=== PATIENT | male | born 1965 | race Caucasian/White ===

== ENCOUNTER → 2020-01-02 11:10 | Outpatient (BNVA) | payer MEDICAID, SELFPAY | PROVIDERS: Family Provider Family Medicine; PCP Family Medicine; Visit Provider Family Medicine | DX: E11.9 Type 2 diabetes mellitus without complications (principal); I25.10 Atherosclerotic heart disease of native coronary artery without angina pectoris; I10 Essential (primary) hypertension | CPT/HCPCS: 80053; 80061; 83036 ==

== ENCOUNTER 2020-01-21 17:47 | Emergency (ER) | payer MEDICAID, SELFPAY | END 2020-01-21 20:45 | disposition admitted as inpatient to this hospital (09) | LOC: ER 01-22 16:10 | PROVIDERS: Emergency Provider Emergency Medicine; PCP Family Medicine | DX: I21.4 Non-ST elevation (NSTEMI) myocardial infarction (principal); I11.0 Hypertensive heart disease with heart failure; I50.21 Acute systolic (congestive) heart failure; I20.0 Unstable angina; I25.10 Atherosclerotic heart disease of native coronary artery without angina pectoris; I50.9 Heart failure, unspecified; E11.42 Type 2 diabetes mellitus with diabetic polyneuropathy; F17.210 Nicotine dependence, cigarettes, uncomplicated | CPT/HCPCS: 12345; 71045; 71275; 80053; 80307; 81003; 83880; 84145; 84484; 85025; 85610; 85730; 87040; 87449; 93005; 96372; 96374; 96375; 99284; 99285; J1650; J2270; J2405 ==

== ENCOUNTER 2020-01-21 17:47 | Inpatient (IN) | payer MEDICAID, SELFPAY ==
[2020-01-21] VITALS (10 sets, daily range): BP systolic 103–137; BP diastolic 64–87; PULSE 74–92; RESP 13–22; TEMP 36.6; O2SAT 95–99; BMI 21.2
--- NOTE | 2020-01-21 18:12 | ECG_ITS ---
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 Measurements Intervals [place] Rate: 75 P: 35 [place]: 176 QRS: 34 QRSD: 97 T: 28 QT: 414 QTc: 464 Interpretive Statements SINUS RHYTHM POSSIBLE LEFT ATRIAL ENLARGEMENT [-0.1mV P WAVE IN V1/V2] NONSPECIFIC T-WAVE ABNORMALITY Compared to ECG 03/01/2019 08:46:31 T-wave abnormality now present Myocardial infarct finding no longer present Electronically Signed On 01-22-2020 9:39:09 CDT by Lele Garcia M.D. [id number]
--- NOTE | 2020-01-21 18:12 | XR_ITS ---
WS: [id number] CHEST XRAY TECHNIQUE: Portable chest. CLINICAL INFORMATION: cp COMPARISON: None. FINDINGS: Heart: Normal cardiac silhouette. Lungs: Stable loculated left pleural effusion extending along the fissure. Left basilar atelectasis. Trace right pleural fluid. Chronic emphysema. Bones: Normal visualized bony structures. XR/XR chest 1V portable [id number] IMPRESSION: Stable loculated left pleural effusion extending along the fissure unchanged si nce the concurrent CT. Trace right pleural fluid.
[2020-01-21 18:20] LABS: Basophils # 0.1 10^3/uL (0.0-0.1); Basophils % 0.7 %; Eosinophils # 0.1 10^3/uL (0.0-0.8); Eosinophils % 0.9 %; Hemoglobin 9.2 g/dL (11.7-16.6); Lymphocytes % 24.9 %; Mean Corpuscular HGB Conc 32.9 g/dL (30.0-36.0); Mean Corpuscular Hemoglobin 32.5 pg (28.0-34.0); Mean Corpuscular Volume 98.9 fL (80-94); Mean Platelet Volume 12.1 fL (7.4-10.4); Monocytes # 0.6 10^3/uL (0.2-0.9); Monocytes % 7.3 %; Neutrophils # 5.3 10^3/uL (1.8-7.7); Neutrophils % 65.8 %; Nucleated Red Blood Cells % 0 %; Platelet Count 163 10^3/cmm (130-400); Red Blood Count 2.83 10^6/uL (4.1-5.3); Red Cell Distribution Width 13.2 % (12.1-15.1); White Blood Count 8.1 10^3/uL (4.0-10.0)
[2020-01-21 18:39] LABS: Troponin(5th) Baseline 184 ng/L (0-15)
[2020-01-21] MEDS: morphine 4 mg/mL SDV 1 mL 2 MG IVP ×2 (18:40→23:12)
[2020-01-21] MEDS: ondansetron 2 mg/ML SDV 2 mL 4 MG IVP (18:40)
[2020-01-21 18:41] LABS: Alanine Aminotransferase 32 U/L (0-41); Alkaline Phosphatase 193 IU/L (40-130); Anion Gap 22.4 (5-19); Aspartate Amino Transferase 61 U/L (0-40); Blood Urea Nitrogen 5 mg/dL (6-20); Calcium 8.3 mg/dL (8.5-10.5); Carbon Dioxide 27 mmol/L (22-29); Chloride 91 mmol/L (98-107); Globulin 3.3 g/dL (1.3-4.6); Glomerular Filtration Rate 116.7 mL/min (90-130); Glucose 376 mg/dL (65-115); NT Pro B Type Natriuretic Pept 17381 pg/mL (0-125); Osmolality Calculated 295 mOsm/kg (285-295); Potassium 3.4 mmol/L (3.5-5.1); Sodium 137 mmol/L (136-145); Total Bilirubin 0.4 mg/dL (0.15-1.2); Total Protein 6.3 g/dL (6.6-8.7)
[2020-01-21] MEDS: aspirin 325 mg Tablet PO (18:41)
[2020-01-21 18:44] LABS: Alcohol Level < 10 mg/dL (0-10); INR 1.16 (0.8-1.2); Partial Thromboplastin Time 33.8 SECONDS (23.9-36.7)
--- NOTE | 2020-01-21 19:05 | PC.NURSE ---
Report received from MICHEAL Siegel and care transferred to MICHEAL Bruce
--- NOTE | 2020-01-21 19:37 | PM.HP ---
Providers/Chief Complaint Primary Care Provider: Silvana Nieves MD Chief Complaint: cp/sob History of Present Illness Miguel Kuhn is a 54 year old male history of reduced ejection fraction heart failure, bladder outlet obstruction, recently had PCI at [place] coming in today for lethargy and chest discomfort. Patient is stating that he had a stent placement in his left anterior descending artery 2months ago, he required prolonged hospitalization, he is not sure whether he was diagnosed with pneumonia but he had to go back to the hospital for worsening symptoms of lethargy and chest pain, he was not given any antibiotics, his EKG and troponins were trended and he was discharged home after his second visit. He is stating that at home he did well for a week until few days back when he started experiencing extreme lethargy and fatigue, he did not experience any falls or syncopal events but he thinks his legs are not able to support his weight anymore. He felt nauseous and skipped his medications as well for a day or two, now he is getting more short of breath on exertion and rest, he has not noticed orthopnea or PND, he has not noticed any fever, chills, vomiting. He has chronic dry cough which has not aggravated. He is also experiencing left-sided chest pain which is achy in nature, gets worse on taking deep breaths and is positional. He thinks this pain is not same as the last time when he went to the hospital. He has not noticed any dark stools, hemoptysis or hematemesis. Work-up in the ER revealed non-ST segment elevation DE, ER physician talked with Dr. Garcia who recommended serial troponin and EKGs by the time I saw patient he had received Lovenox, I reviewed his x-ray which was showing dense consolidation in left lower lobe, I requested CT chest on stat basis which revealed loculated effusion Dr. Molina is not available until Wednesday, I discussed with Dr. Meneses about loculated effusion and NSTEMI Dr. Meneses is available tomorrow, Lovenox and Plavix will be held in anticipation of chest tube placement versus thoracotomy in the morning Patient will be transferred to ICU from CSU, I have added vancomycin Levaquin and Zosyn, currently not septic, saturating well on room Review of Systems Const: Reports: chills, body aches, change in appetite, change in weight, fatigue and malaise; Denies: fever(s) Eyes: Denies: change in vision ENMT: Denies: throat pain Card: Reports: chest pain and dyspnea on exertion; Denies: irregular heart rhythm, swelling of feet/ankles, syncope, pre-syncope, orthopnea or leg pain with exertion Resp: Reports: dyspnea, non-productive cough and pain on inspiration; Denies: productive cough, wheezing or hemoptysis GI: Denies: abdominal pain, nausea, vomiting, constipation or bloating : Denies: flank pain Musc: Reports: decrease in muscle mass; Denies: loss of height Skin/Breast: Denies: rash Neuro: Reports: weakness in extremities; Denies: headache(s) Psych: Denies: anxiety or depression Endo: Denies: polyuria Oumar/Lymph: Denies: easy bruising All/Imm: Denies: urticaria Medications/Allergies Home Medications Medication Instructions Recorded Confirmed Last Taken Type aspirin 81 mg tablet,delayed 81 mg PO DAILY 30 Days #30 tab 01/01/20 01/21/20 Unknown Rx release atorvastatin 40 mg tablet 40 mg PO DAILY 30 Days #30 tab 01/01/20 01/21/20 Unknown Rx carvedilol 3.125 mg tablet 3.125 mg PO BID 30 Days #60 tab 01/01/20 01/21/20 Unknown Rx clonazepam 0.5 mg tablet 0.5 mg PO DAILY PRN 90 Days #30 tab 01/01/20 01/21/20 Unknown Rx clopidogrel 75 mg tablet 75 mg PO DAILY 30 Days #30 tab 01/01/20 01/21/20 Unknown Rx docusate sodium 100 mg tablet 100 mg PO BID 30 Days #60 tab 01/01/20 01/21/20 Unknown Rx famotidine 20 mg tablet 20 mg PO BID 30 Days #60 tab 01/01/20 01/21/20 Unknown Rx folic acid 1 mg tablet 1 mg PO DAILY 30 Days #30 tab 01/01/20 01/21/20 Unknown Rx furosemide 40 mg tablet 40 mg PO QAM 30 Days #30 tab 01/01/20 01/21/20 Unknown Rx isosorbide mononitrate 30 mg 30 mg PO QAM 30 Days #30 tab 01/01/20 01/21/20 Unknown Rx tablet,extended release 24 hr hqyjlj-vxsrygmc-xdbitkt 1 cap PO TID 30 Days #90 cap 01/01/20 01/21/20 Unknown Rx 6,000-19,000-30,000 unit capsule,delayed rel lisinopril 2.5 mg tablet 2.5 mg PO DAILY 30 Days #30 tab 01/01/20 01/21/20 Unknown Rx metformin 1,000 mg tablet 1,000 mg PO BID 30 Days #60 tab 01/01/20 01/21/20 Unknown Rx nitroglycerin 0.4 mg sublingual 0.4 mg SUBLINGUAL Q5M PRN #14 tab 01/01/20 01/21/20 Unknown Rx tablet pantoprazole 40 mg tablet,delayed 40 mg PO DAILY 30 Days #30 tab 01/01/20 01/21/20 Unknown Rx release potassium chloride 20 mEq 20 meq PO DAILY 30 Days #30 tab 01/01/20 01/21/20 Unknown Rx tablet,extended release sertraline 50 mg tablet 50 mg PO DAILY 30 Days #30 tab 01/01/20 01/21/20 Unknown Rx tamsulosin 0.4 mg capsule 0.4 mg PO DAILY 30 Days #30 cap 01/01/20 01/21/20 Unknown Rx thiamine HCl (vitamin B1) 100 mg 50 mg PO DAILY 30 Days #30 tab 01/01/20 01/21/20 Unknown Rx tablet Novolog Flexpen U-100 Insulin See Rx Instructions .ROUTE 01/21/20 01/21/20 01/21/20 12:00 History .COMPLEX MDD 30 units vwpkcc-gytsjloi-klryzqb [Zenpep] 1 cap PO TID 01/21/20 01/21/20 Unknown History metoprolol tartrate See Rx Instructions .ROUTE .COMPLEX 01/21/20 01/21/20 Unknown History Allergies Allergy/AdvReac Type Severity Reaction Status Date / Time No Known Allergies Allergy Verified 01/21/20 18:40 PFSH Acute PFSH: Medical History BPH (benign prostatic hyperplasia) Follows up with Dr. Bryant Bladder outlet obstruction CAD (coronary artery disease) CHF (congestive heart failure) EF 40% Chronic pancreatitis Secondary to alcoholism Constipation LIZZIE (generalized anxiety disorder) GERD (gastroesophageal reflux disease) Hx of hypokalemia Hypertension Peripheral neuropathy Presence of pancreatic duct stent Type 2 diabetes mellitus Surgical History H/O cardiac catheterization Recent stent at [place] 2 months ago Stented coronary artery Family History Denies family history of Lung disease Hypertension Social History Smoking and tobacco status: current every day smoker cigarettes Alcohol intake: former Substance/Drug Use: former Date of last use: 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 Household members: family and other Details: Takes care of his father 87 years old Housing: House Vitals/I&O/Wt Last Vital Signs Temp 97.8 F 01/21/20 17:49 Pulse 92 01/21/20 19:15 Resp 16 01/21/20 19:15 BP 137/87 01/21/20 19:15 Pulse Ox 98 01/21/20 19:15 Weight last 48 hrs Weight 63.503 kg Physical Exam Narrative: EXAM NARRATIVE: Head to toe examination Patient appears more than stated age, malnourished Was laying on his left side on entering the room He complained of pleuritic chest pain with changes with position Saturating well on room air Afebrile S1, S2 no active signs of heart failure Lungs show diminished breath sounds, bronchial breath sound left lung field Dull to percussion Abdomen soft nontender nondistended bowel sound present Neurologically nonfocal exam NIH 0 Muscle mass loss of lower extremity No facial asymmetry Patient is able to lay supine without shortness of breath Appears fatigued and lethargic Lower extremity no signs of edema gangrene or ulcer Data : 01/21/20 18:00 01/21/20 18:00 A&P Assessment and plan (1) NSTEMI (non-ST elevated myocardial infarction): Status: Acute (2) Loculated pleural effusion: Status: Acute (3) CHF (congestive heart failure): Status: Chronic Qualifiers: Heart failure type: systolic Heart failure chronicity: chronic Qualified Code(s): I50.22 - Chronic systolic (congestive) heart failure (4) CAD (coronary artery disease): Status: Chronic Qualifiers: Coronary Disease-Associated Artery/Lesion type: hopi artery [place] vs. 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 (6) Macrocytic anemia: Status: Acute (7) Chronic pancreatitis: Status: Chronic (8) LIZZIE (generalized anxiety disorder): Status: Chronic (9) GERD (gastroesophageal reflux disease): Status: Chronic Qualifiers: Esophagitis presence: without esophagitis Qualified Code(s): K21.9 - Gastro-esophageal reflux disease without esophagitis Additional A&P Information Non-ST segment elevation DE Recent stent placement 2 months ago at [place] with prolonged hospitalization Has received Lovenox& aspirin full therapeutic dose, currently on Nitropaste Would hold Lovenox and Plavix in anticipation of chest tube placement versus thoracotomy in the morning Currently EKG showing T wave inversion V1 to V3, negative delta troponin, his chest pain is pleuritic in nature Trend troponin with serial EKGs Echo in the morning to see a new wall motion abnormality Loculated left-sided pleural effusion CT scan is showing large loculated effusion Right-sided free-flowing fluid effusion No signs of sepsis, currently saturating well on room air I believe he had hospital-acquired pneumonia with complicated parapneumonic effusion which necessitated this visit Dr. Meneses consulted, Dr. Molina not available until Wednesday In anticipation of chest tube versus thoracotomy I would hold Plavix and Lovenox and continue rest of his medications for now because of recent PCI Vancomycin, Zosyn and Levaquin to cover for hospital-acquired pneumonia for MRSA and pseudomonal microorganisms Congestive heart failure without acute decompensation As per previous echo ejection fraction is 40% No active decompensated I would continue his home dose of Lasix for now because of bilateral pleural effusion Type 2 diabetes: Currently he is n.p.o., will start sliding scale once he is able to tolerate diet New onset macrocytic anemia Patient is denying dark-colored stools, hemoptysis or hematemesis Check FOBT repeat H&H Patient is complaining of extreme lethargy and weakness in his legs, will check B12 level He is currently getting folic acid Lower extremity pain and weakness No signs of stroke, he carries history of alcohol abuse, I am suspecting alcohol induced neuropathy, will check B12 level Evident muscle mass loss GERD: Continue Protonix Patient is a current smoker, smokes 5 to 6 cigarettes a day Counseled on smoking cessation Full code Lives with his father, his brother lives nearby N.p.o. Holding therapeutic Lovenox in anticipation of intervention Attestations Medical Necessity Statement*: Anticipating in the hospital cross more than 2 midnights currently has loculated effusion, NSTEMI, carries high risk of mortality and morbidity Needing ICU for closer monitoring Time Spent in Patient Care: (>than 50% of time spent in counselling and/or direct pt care on unit). 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 transplanted heart: hopi heart Associated angina: with stable angina Type 2 diabetes mellitus E11.69; Z79.4 Diabetes mellitus usp insulin use: with usp use Diabetes mellitus complication status: with other specified complication Macrocytic anemia D53.9 Chronic pancreatitis K86.1 LIZZIE (generalized anxiety disorder) F41.1 GERD (gastroesophageal reflux disease) K21.9 Esophagitis presence: without esophagitis
[2020-01-21] MEDS: enoxaparin 60 mg/0.6 mL Syringe SUBCUT (19:38)
--- NOTE | 2020-01-21 19:38 | CTR_ITS ---
PROCEDURE INFORMATION: Exam: CT Angiography Chest With Contrast Exam date and time: 01/21/2020 8:24 PM Age: 54 years old Clinical indication: Shortness of breath; Left-sided chest pain; Patient HX: C/O cp w SOB; Additional info: Pe TECHNIQUE: Imaging protocol: Computed tomographic angiography of the chest with intravenous contrast. 3D rendering: MIP and/or 3D reconstructed images were created by the technologist. Radiation optimization: All CT scans at this facility use at least one of these dose optimization techniques: automated exposure control; mA and/or kV adjustment per patient size (includes targeted exams where dose is matched to clinical indication); or iterative reconstruction. Contrast material: OMNI 350; Contrast volume: 95 ml; Contrast route: INTRAVENOUS (IV); COMPARISON: CR XR chest 1V portable [id number] 01/21/2020 6:14 PM RADIATION DOSE METRICS: Total DLP (mGy-cm): 512.34 FINDINGS: Pulmonary arteries: No visible pulmonary embolism/pulmonary arterial thrombus. Aorta: The thoracic aorta is nonaneurysmal. Moderate arterial sclerotic disease. No visible intimal flap or dissection. Lungs: Centrilobular emphysema. Minimal dependent atelectasis. Pleural space: Large loculated left pleural effusion filling essentially the pleural space along the major fissure. Scant free right pleural effusion. Heart: Three-vessel coronary artery disease. Left ventricular hypertrophy. No visible pericardial effusion. Lymph nodes: Unremarkable. No enlarged lymph nodes. Bones/joints: No visible acute osseous abnormality. Old superior endplate deformity T8. Osteopenia. Soft tissues: Unremarkable. Other findings: A total of 889 images were acquired that will require assessment and interpretation. Marked gastrectasis. Query gastroparesis from diabetes mellitus. CT/CT angio chest PE protcl [id number] IMPRESSION: 1. No visible pulmonary embolism/pulmonary arterial thrombus. 2. Large loculated left pleural effusion filling essentially the pleural space along the major fissure. 3. Scant free right pleural effusion. 4. Centrilobular emphysema. 5. Three-vessel coronary artery disease. Radiation Dose CTDIVOL = (mGy): DLP = 512.34 (mGy-cm)
[2020-01-21 19:47] LABS: Add Urine Microscopic? NO
[2020-01-21 19:53] LABS: Bilirubin Urine Neg (NEGATIVE); Blood Urine Neg (Negative); Glucose Urine UA 4+ (Normal); Ketones Urine Negative (Negative); Leukocyte Esterase Urine Negative (Negative); Nitrate Urine Negative (Negative); Protein Urine Neg (Negative); Specific Gravity, Urine 1.015 (1.005-1.030); Urine Appearance Clear (CLEAR); Urine Color Yellow (Yellow); Urobilinogen Urine Norm (Negative); pH Urine 5 (5-7)
[2020-01-21] MEDS: nitroglycerin 1 gm/inch oint Pkt 0.5 INCH TOPICAL (20:02)
[2020-01-21] MEDS: azithromycin 250 mg Tablet 500 MG PO (20:05)
[2020-01-21 20:08] LABS: Procalcitonin 0.05 ng/mL (0-0.5)
[2020-01-21] MEDS: iohexol 350 mg/mL 100 mL Btl IV (20:48)
--- NOTE | 2020-01-21 20:54 | ECG_ITS ---
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 Measurements Intervals [place] Rate: 80 P: 35 [place]: 186 QRS: 44 QRSD: 102 T: 48 QT: 397 QTc: 459 Interpretive Statements SINUS RHYTHM POSSIBLE LEFT ATRIAL ENLARGEMENT [-0.1mV P WAVE IN V1/V2] NONSPECIFIC T-WAVE ABNORMALITY Compared to ECG 01/21/2020 18:01:59 No significant changes Electronically Signed On 01-22-2020 9:41:24 CDT by Lele Garcia M.D. [id number]
[2020-01-21 20:59] LABS: Troponin 5 2HR 165.4 ng/L (0-15); Troponin 5 2HR Delta -18.6 ABS# (0-10)
--- NOTE | 2020-01-21 22:05 | PC.NURSE ---
Notified ICU of transfer. They will return call with bed number. Will continue to [facility].
--- NOTE | 2020-01-21 22:10 | PC.PHAR ---
Vancomycin is dosed at 1250mg IVPB ever 12 hours to produce a predicted trough level of 14.24 (population based pharmacokinetic analysis). A trough level has been ordered from the lab to be obtained before the fourth dose to confirm and adjust if needed.
--- NOTE | 2020-01-21 22:32 | PC.NURSE ---
PT C/O 04/04 CHEST PAIN. WAS NOTIFIED. IS TRANSFERRING PT TO ICU. THERE IS A STAGE 2 PRESSURE ULCER TO SACRAL AREA. WILL FILL OUT SBAR AND TRANSFER PT.
--- NOTE | 2020-01-21 22:34 | PC.NURSE ---
PASSWORD IS [facility].
[2020-01-21] MEDS: piperacillin-tazobactam 3.375 GM in sodium chloride 0.9% (plus) 50 ML IV (22:57)
--- NOTE | 2020-01-21 23:06 | PC.NURSE ---
PT IS STILL ON CSU AT THIS TIME WAS NOTIFIED. PT WILL BE TRANSFERRED UNPON ICU BED AVAILABILITY. SBAR WAS FAXED TO ICU. WILL CONTINUE TO MONITOR.
[2020-01-22] VITALS (34 sets, daily range): BP systolic 76–163; BP diastolic 54–97; PULSE 64–82; RESP 10–24; TEMP 36.6–36.8; O2SAT 93–100
--- NOTE | 2020-01-22 | SCC_ITS ---
Procedure Done: Left pleural Gardiner drain placement 27.3 seconds of fluoroscopic guidance, for a cumulative dose of 2.45 mGy, was provided to Dr. Meneses by the radiology department. C-arm images of the chest were saved for the patient's permanent record. [facility]
[2020-01-22 00:58] LABS: Troponin 5 6HR 164.6 ng/L (0-15); Troponin 5 6HR Delta -19.4 ng/L (0-12)
[2020-01-22 01:13] LABS: Hemoglobin 8.7 g/dL (11.7-16.6)
[2020-01-22] MEDS: nitroglycerin 0.4 mg sublingual Tablet SUBLINGUAL ×3 (01:24→07:36)
--- NOTE | 2020-01-22 01:28 | ECG_ITS ---
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 Measurements Intervals [place] Rate: 78 P: 11 [place]: 156 QRS: 47 QRSD: 97 T: 31 QT: 398 QTc: 455 Interpretive Statements SINUS RHYTHM POSSIBLE LEFT ATRIAL ENLARGEMENT [-0.1mV P WAVE IN V1/V2] NONSPECIFIC T-WAVE ABNORMALITY Compared to ECG 01/21/2020 21:19:41 No significant changes Electronically Signed On 01-22-2020 9:40:18 CDT by Lele Garcia M.D. [id number]
--- NOTE | 2020-01-22 01:47 | PC.NURSE ---
Chest Pain: Patient reported CP 9/10. Nitro SL given x1. Did not relieve pain. another dose administered. Relieved pain down to a 5/10. EKG obtained. No acute changes at this time.
[2020-01-22 02:54] LABS: Vitamin B12 639 pg/mL (232-1245)
[2020-01-22 03:07] LABS: Lactate Dehydrogenase 168 U/L (135-225)
[2020-01-22] MEDS: morphine 4 mg/mL SDV 1 mL 2 MG IVP ×5 (03:14→20:38)
[2020-01-22 04:27] LABS: Basophils # 0.1 10^3/uL (0.0-0.1); Eosinophils # 0.1 10^3/uL (0.0-0.8); Eosinophils % 1.5 %; Hematocrit 28.8 % (42.0-52.0); Hemoglobin 9.4 g/dL (11.7-16.6); Lymphocytes % 27.4 %; Mean Corpuscular HGB Conc 32.6 g/dL (30.0-36.0); Mean Corpuscular Hemoglobin 32.2 pg (28.0-34.0); Mean Corpuscular Volume 98.6 fL (80-94); Mean Platelet Volume 12.6 fL (7.4-10.4); Monocytes # 0.6 10^3/uL (0.2-0.9); Monocytes % 8.4 %; Neutrophils # 4.4 10^3/uL (1.8-7.7); Neutrophils % 61.3 %; Nucleated Red Blood Cells % 0 %; Platelet Count 163 10^3/cmm (130-400); Red Blood Count 2.92 10^6/uL (4.1-5.3); Red Cell Distribution Width 13.2 % (12.1-15.1); White Blood Count 7.2 10^3/uL (4.0-10.0)
[2020-01-22 04:48] LABS: Alanine Aminotransferase 32 U/L (0-41); Albumin Level 2.9 g/dL (3.5-5.2); Alkaline Phosphatase 180 IU/L (40-130); Anion Gap 12.6 (5-19); Aspartate Amino Transferase 53 U/L (0-40); Blood Urea Nitrogen 6 mg/dL (6-20); Calcium 8.3 mg/dL (8.5-10.5); Carbon Dioxide 30 mmol/L (22-29); Chloride 95 mmol/L (98-107); Creatinine Clr Calc Pharmacy 129.1912; Globulin 3.2 g/dL (1.3-4.6); Glomerular Filtration Rate 139.4 mL/min (90-130); Glucose 292 mg/dL (65-115); Osmolality Calculated 285 mOsm/kg (285-295); Potassium 3.6 mmol/L (3.5-5.1); Sodium 134 mmol/L (136-145); Total Bilirubin 0.4 mg/dL (0.15-1.2); Total Protein 6.1 g/dL (6.6-8.7)
[2020-01-22] MEDS: levoFLOXacin 750 mg Tablet PO (05:28)
[2020-01-22] MEDS: isosorbide mononitrate ER 30 mg Tablet PO (05:28)
[2020-01-22] MEDS: piperacillin-tazobactam 3.375 GM in sodium chloride 0.9% (plus) 50 ML IV ×3 (05:28→21:14)
[2020-01-22] MEDS: FUROsemide 40 mg Tablet PO (05:29)
--- NOTE | 2020-01-22 05:49 | ED_ITS ---
HPI - Chest Pain General: Chief Complaint: Chest Pain Stated Complaint: cp/sob Time Seen by Provider: 01/21/20 18:03 History of Present Illness: HPI narrative: 54-year-old male with a history of coronary disease. He was stented at [facility] around 2 months ago he says. He had a prolonged hospital stay there. He notes that every day he has been home he has been a bit better than the previous day until about 3 days ago when he began to get some chest discomfort and some trouble breathing. It worsened to the point today he felt he needed to be seen. He called an ambulance he denies any fever. 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 Onset (ago): day(s) Timing of current episode: constant Prior episodes: Yes Onset: during rest Pain location: substernal and left chest Pain radiation: none Severity: moderate Quality: tightness and aching Relieving factors: nitroglycerin Exacerbating factors: exertion Associated symptoms: Reports dyspnea, leg edema and nausea; Deny abdominal pain, fever(s), palpitations or vomiting Review of Systems Const: Denies: fever(s) Eyes: Denies: change in vision ENMT: Denies: swelling of lips/tongue or sinus pain Card: Reports: chest pain and edema; Denies: palpitations, irregular heart rhythm or orthopnea Resp: Reports: dyspnea and non-productive cough; Denies: productive cough or wheezing GI: Reports: nausea; Denies: abdominal pain or vomiting : Denies: difficulty urinating, dysuria or hematuria Musc: Reports: back pain; Denies: neck pain Skin/Breast: Denies: rash, pruritus or erythema Neuro: Reports: dizziness; Denies: headache(s) or confusion Psych: Reports: anxiety PFSH ED PFSH: Medical History BPH (benign prostatic hyperplasia) Follows up with Dr. Bryant Bladder outlet obstruction CAD (coronary artery disease) CHF (congestive heart failure) EF 40% Chronic pancreatitis Secondary to alcoholism Constipation LIZZIE (generalized anxiety disorder) GERD (gastroesophageal reflux disease) Hx of hypokalemia Hypertension Peripheral neuropathy Presence of pancreatic duct stent Type 2 diabetes mellitus Surgical History H/O cardiac catheterization Recent stent at [place] 2 months ago Stented coronary artery Family History Denies family history of Lung disease Hypertension Social History Smoking and tobacco status: current every day smoker cigarettes Alcohol intake: former Substance/Drug Use: former Date of last use: 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 Household members: family and other Details: Takes care of his father 87 years old Housing: House Physical Exam Const: GENERAL APPEARANCE: ill appearing, frail appearing and other (Thin) ORIENTATION/CONSCIOUSNESS: Yes oriented to person, Yes oriented to place and Yes oriented to time HENMT: COMMON NORMALS: normocephalic, external ears normal and Normal external nose present HEAD & SCALP: normocephalic FACE & SINUS: normal facial exam NOSE: Normal external nose present and No nasal discharge present EXTERNAL EAR: Yes external ears normal MOUTH: tongue normal Eye: COMMON NORMALS: Equal, round and reactive pupils present, EOMs intact bilaterally and conjunctivae normal EYELID: eyelids normal CONJUNCTIVA: Yes conjunctivae normal PUPIL: Yes Equal, round and reactive pupils present Neck/C-Spine: GENERAL: No tracheal deviation Chest: COMMONS NORMALS: normal inspection of the chest CHEST: No tenderness Resp: EFFORT & INSPECTION: Yes tachypneic, Yes respiratory distress, No retractions, No uses accessory muscles and No tracheal deviation AUSCULTATI ON: no rhonchi, no wheezes and diminished lung sounds Cardio: COMMON NORMALS: regular rate and regular rhythm RATE: regular rate RHYTHM: regular rhythm HEART SOUNDS: no murmurs PERIPHERAL PULSES: radial pulses present GI: INSPECTION: No abdominal distension AUSCULTATION: No Hyperactive bowel sounds present and No Hypoactive bowel sounds present PALPATION: No Guarding due to palpation present (GI) and No Rigid due to palpation PERCUSSION: no dullness to percussion and no tympanic to percussion Neuro: SENSORIUM/ORIENTATION: Yes oriented to person, Yes oriented to place and Yes oriented to time Psych: COMMON NORMALS: mental status grossly normal Skin: COMMON NORMALS: no rashes or lesions noted GENERAL SKIN EXAM: no rashes or lesions noted Course Consultations: Consultation #1: Jose Consultation #2: randall Vital Signs: Vital signs: Vital Signs Temperature 98.3 F 01/22/20 04:00 Pulse Rate 77 01/22/20 06:00 Respiratory Rate 16 01/22/20 06:00 Blood Pressure 163/97 01/22/20 06:00 Pulse Oximetry 100 01/22/20 06:00 MDM - Chest Pain MDM Narrative: Medical decision making narrative: 54-year-old male with a history of coronary disease. He presents with substernal and left-sided chest pain and shortness of breath. His hemoglobin is 9.4. His renal function is essentially normal. His troponin is 180 on first draw. He does not have ST elevation or significant depression on his EKG. His second troponin fell a bit. He has a significant left-sided effusion on chest x-ray this is likely the cause of his left-sided chest pain with shortness of breath. Will be admitted. Spoke to cardiology from the ER, and they will be consulted. Hospitalist is accepted the admit. Lab Data: Labs: Lab Results 01/21/20 01/21/20 01/21/20 Range/Units 18:00 18:00 18:00 WBC 8.1 (4.0-10.0) 10^3/ uL RBC 2.83 L (4.1-5.3) 10^6/u L Hgb 9.2 L (11.7-16.6) g/dL Hct 28.0 L (42.0-52.0) % MCV 98.9 H (80-94) fL MCH 32.5 (28.0-34.0) pg MCHC 32.9 (30.0-36.0) g/dL RDW 13.2 (12.1-15.1) % Plt Count 163 (130-400) 10^3/c mm MPV 12.1 H (7.4-10.4) fL Neut % (Auto) 65.8 % Lymph % (Auto) 24.9 % [place] % (Auto) 7.3 % Eos % (Auto) 0.9 % Baso % (Auto) 0.7 % Neut # (Auto) 5.3 (1.8-7.7) 10^3/u L Lymph # (Auto) 2.0 (0.8-4.8) 10^3/u L [place] # (Auto) 0.6 (0.2-0.9) 10^3/u L Eos # (Auto) 0.1 (0.0-0.8) 10^3/u L Baso # (Auto) 0.1 (0.0-0.1) 10^3/u L Nucleated RBC % (a uto) 0 % Nucleated RBCs # 0.0 /100WBC PT 15.20 H (10.5-13.3) SECO NDS INR 1.16 (0.8-1.2) APTT 33.8 (23.9-36.7) SECO NDS Sodium 137 (136-145) mmol/L Potassium 3.4 L (3.5-5.1) mmol/L Chloride 91 L (98-107) mmol/L Carbon Dioxide 27 (22-29) mmol/L Anion Gap 22.4 H (5-19) BUN 5 L (6-20) mg/dL Creatinine 0.7 (0.7-1.2) mg/dL GFR Calculation 116.7 (90-130) mL/min Glucose 376 H (65-115) mg/dL Calculated Osmolal ity 295 (285-295) mOsm/k g Calcium 8.3 L (8.5-10.5) mg/dL Total Bilirubin 0.4 (0.15-1.2) mg/dL AST 61 H (0-40) U/L ALT 32 (0-41) U/L Alkaline Phosphata se 193 H (40-130) IU/L Troponin T Baselin e (0-15) ng/L NT-Pro-B Natriuret Pep 02157 H (0-125) pg/mL Total Protein 6.3 L (6.6-8.7) g/dL Albumin 3.0 L (3.5-5.2) g/dL Globulin 3.3 (1.3-4.6) g/dL Procalcitonin (0-0.5) ng/mL Urine Color (Yellow) Urine Appearance (CLEAR) Urine pH (5-7) Ur Specific Gravit y (1.005-1.030) Urine Protein (Negative) Urine Glucose (UA) (Normal) Urine Ketones (Negative) Urine Blood (Negative) Urine Nitrate (Negative) Urine Bilirubin (NEGATIVE) Urine Urobilinogen (Negative) mg/dL Ur Leukocyte Destiny ase (Negative) Ethyl Alcohol < 10 (0-10) mg/dL 01/21/20 01/21/20 01/21/20 Range/Units 18:00 18:00 19:37 WBC (4.0-10.0) 10^3/ uL RBC (4.1-5.3) 10^6/u L Hgb (11.7-16.6) g/dL Hct (42.0-52.0) % MCV (80-94) fL MCH (28.0-34.0) pg MCHC (30.0-36.0) g/dL RDW (12.1-15.1) % Plt Count (130-400) 10^3/c mm MPV (7.4-10.4) fL Neut % (Auto) % Lymph % (Auto) % [place] % (Auto) % Eos % (Auto) % Baso % (Auto) % Neut # (Auto) (1.8-7.7) 10^3/u L Lymph # (Auto) (0.8-4.8) 10^3/u L [place] # (Auto) (0.2-0.9) 10^3/u L Eos # (Auto) (0.0-0.8) 10^3/u L Baso # (Auto) (0.0-0.1) 10^3/u L Nucleated RBC % (a uto) % Nucleated RBCs # /100WBC PT (10.5-13.3) SECO NDS INR (0.8-1.2) APTT (23.9-36.7) SECO NDS Sodium (136-145) mmol/L Potassium (3.5-5.1) mmol/L Chloride (98-107) mmol/L Carbon Dioxide (22-29) mmol/L Anion Gap (5-19) BUN (6-20) mg/dL Creatinine (0.7-1.2) mg/dL GFR Calculation (90-130) mL/min Glucose (65-115) mg/dL Calculated Osmolal ity (285-295) mOsm/k g Calcium (8.5-10.5) mg/dL Total Bilirubin (0.15-1.2) mg/dL AST (0-40) U/L ALT (0-41) U/L Alkaline Phosphata se (40-130) IU/L Troponin T Baselin e 184 H* (0-15) ng/L NT-Pro-B Natriuret Pep (0-125) pg/mL Total Protein (6.6-8.7) g/dL Albumin (3.5-5.2) g/dL Globulin (1.3-4.6) g/dL Procalcitonin 0.05 (0-0.5) ng/mL Urine Color Yellow (Yellow) Urine Appearance Clear (CLEAR) Urine pH 5 (5-7) Ur Specific Gravit y 1.015 (1.005-1.030) Urine Protein Neg (Negative) Urine Glucose (UA) 4+ H (Normal) Urine Ketones Negative (Negative) Urine Blood Neg (Negative) Urine Nitrate Negative (Negative) Urine Bilirubin Neg (NEGATIVE) Urine Urobilinogen Norm (Negative) mg/dL Ur Leukocyte Destiny ase Negative (Negative) Ethyl Alcohol (0-10) mg/dL Discharge Plan Discharge Patient Disposition: Admitted As Inpatient Admit Provider: Sandro Mena Clinical Impression: Unstable angina pectoris, NSTEMI (non-ST elevated myocardial infarction) CHF (congestive heart failure) Qualifiers: Heart failure type: systolic Heart failure chronicity: acute Qualified Code(s): I50.21 - Acute systolic (congestive) heart failure Condition: Stable Discharge Date/Time: 01/21/20 20:45 Coding Level of Care Code 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
--- NOTE | 2020-01-22 06:40 | P.CONIM_ITS ---
Providers/Reason For Consult Consulting Physican/Specialty*: Zaira Reason for Consult*: Loculated left pleural effusion Requesting Physcian: Dr. Mena Attending Physician: Sandro Mena MD Primary Care Provider: Silvana Nieves MD History of Present Illness History of Present Illness Miguel Kuhn is a 54 year old male who apparently was hospitalized in [place] about 2 months ago where he underwent stenting of the LAD. Apparently, he had a prolonged hospitalization and a subsequent pneumonia after discharge and required a readmission. He presented the emergency department with complaints of a several day history of increasing fatigue but denied fever, chills, or productive cough. He did state he had a dry cough for a few days. Initial evaluation emerge department revealed elevated troponins consistent with a non-ST elevated myocardial infarction. He was initially placed on Lovenox with serial EKGs and troponins planned. He has received Lovenox and Plavix. This concerns were for an infiltrative pattern in the left hemothorax. Upon chest tube review however this appears to be a loculated effusion. Given his admission with a non-STEMI as well as Lovenox/Plavix, I recommended the least invasive therapy is possible for now. Therefore recommended ultrasound directed pleural drain versus chest tube placement for this loculated fluid collection in the left chest. While this may not be a complete therapy this time, given his current antiplatelet therapy as well as non-STEMI, I think it is most prudent course to proceed with. I discussed this with Mr. Horn as well as Dr. Mena. Review of Systems Const: Reports: body aches, change in appetite, fatigue and malaise; Denies: fever(s) or chills Resp: Reports: dyspnea and non-productive cough Meds/Allergies Home Medications and Allergies Home Medications Medication Instructions Recorded Confirmed Last Taken Type aspirin 81 mg tablet,delayed 81 mg PO DAILY 30 Days #30 tab 01/01/20 01/21/20 Unknown Rx release atorvastatin 40 mg tablet 40 mg PO DAILY 30 Days #30 tab 01/01/20 01/21/20 Unknown Rx carvedilol 3.125 mg tablet 3.125 mg PO BID 30 Days #60 tab 01/01/20 01/21/20 Unknown Rx clonazepam 0.5 mg tablet 0.5 mg PO DAILY PRN 90 Days #30 tab 01/01/20 01/21/20 Unknown Rx clopidogrel 75 mg tablet 75 mg PO DAILY 30 Days #30 tab 01/01/20 01/21/20 Unknown Rx docusate sodium 100 mg tablet 100 mg PO BID 30 Days #60 tab 01/01/20 01/21/20 Unknown Rx famotidine 20 mg tablet 20 mg PO BID 30 Days #60 tab 01/01/20 01/21/20 Unknown Rx folic acid 1 mg tablet 1 mg PO DAILY 30 Days #30 tab 01/01/20 01/21/20 Unknown Rx furosemide 40 mg tablet 40 mg PO QAM 30 Days #30 tab 01/01/20 01/21/20 Unknown Rx isosorbide mononitrate 30 mg 30 mg PO QAM 30 Days #30 tab 01/01/20 01/21/20 Unknown Rx tablet,extended release 24 hr mfhrci-hmshjfox-ioskloz 1 cap PO TID 30 Days #90 cap 01/01/20 01/21/20 Unknown Rx 6,000-19,000-30,000 unit capsule,delayed rel lisinopril 2.5 mg tablet 2.5 mg PO DAILY 30 Days #30 tab 01/01/20 01/21/20 Unknown Rx metformin 1,000 mg tablet 1,000 mg PO BID 30 Days #60 tab 01/01/20 01/21/20 Unknown Rx nitroglycerin 0.4 mg sublingual 0.4 mg SUBLINGUAL Q5M PRN #14 tab 01/01/20 01/21/20 Unknown Rx tablet pantoprazole 40 mg tablet,delayed 40 mg PO DAILY 30 Days #30 tab 01/01/20 01/21/20 Unknown Rx release potassium chloride 20 mEq 20 meq PO DAILY 30 Days #30 tab 01/01/20 01/21/20 Unknown Rx tablet,extended release sertraline 50 mg tablet 50 mg PO DAILY 30 Days #30 tab 01/01/20 01/21/20 Unknown Rx tamsulosin 0.4 mg capsule 0.4 mg PO DAILY 30 Days #30 cap 01/01/20 01/21/20 Unknown Rx thiamine HCl (vitamin B1) 100 mg 50 mg PO DAILY 30 Days #30 tab 01/01/20 01/21/20 Unknown Rx tablet Novolog Flexpen U-100 Insulin See Rx Instructions .ROUTE 01/21/20 01/21/20 01/21/20 12:00 History .COMPLEX MDD 30 units phiqde-osgsmfbu-ivjlfux [Zenpep] 1 cap PO TID 01/21/20 01/21/20 Unknown History metoprolol tartrate See Rx Instructions .ROUTE .COMPLEX 01/21/20 01/21/20 Unknown History Allergies Allergy/AdvReac Type Severity Reaction Status Date / Time No Known Allergies Allergy Verified 01/21/20 18:40 Current Medications Current Medications Generic Name Dose Route Start Last Admin Trade Name Freq PRN Reason Stop Dose Admin Lipase/Protease/Amylase 1 each 01/21/20 21:00 01/21/20 22:41 Zenpep PO Not Given TID ALBERTINA Furosemide 40 mg 01/22/20 06:00 01/22/20 05:29 Lasix PO 40 mg QAM ALBERTINA Administration Vancomycin HCl 1,250 mg/ 250 mls @ 250 mls/hr 01/22/20 02:00 01/22/20 01:40 Sodium Chloride IV 250 mls/hr Q12H ALBERTINA Administration Protocol As Directed Piperacillin Sod/Tazobactam 50 mls @ 12.5 mls/hr 01/21/20 22:00 01/22/20 05:28 Sod 3.375 gm/ Sodium Chloride IV 12.5 mls/hr Q8H ALBERTINA Administration Protocol As Directed Isosorbide Mononitrate 30 mg 01/22/20 06:00 01/22/20 05:28 Imdur PO 30 mg QAM ALBERTINA Administration Levofloxacin 750 mg 01/22/20 06:00 01/22/20 05:28 Levaquin PO 750 mg DAILY@0600 [facility] Administration Protocol Morphine Sulfate 2 mg 01/21/20 20:54 01/22/20 03:14 Morphine IVP 2 mg Q4H PRN Administration SEVERE PAIN Nitroglycerin 0.4 mg 01/21/20 20:54 01/22/20 01:35 Nitrostat SUBLINGUAL 0.4 mg Q5M PRN Administration chest pain PFSH Acute PFSH: Medical History BPH (benign prostatic hyperplasia) Follows up with Dr. Bryant Bladder outlet obstruction CAD (coronary artery disease) CHF (congestive heart failure) EF 40% Chronic pancreatitis Secondary to alcoholism Constipation LIZZIE (generalized anxiety disorder) GERD (gastroesophageal reflux disease) Hx of hypokalemia Hypertension Peripheral neuropathy Presence of pancreatic duct stent Type 2 diabetes mellitus Surgical History H/O cardiac catheterization Recent stent at [place] 2 months ago Stented coronary artery Family History Denies family history of Lung disease Hypertension Social History Smoking and tobacco status: current every day smoker cigarettes Alcohol intake: former Substance/Drug Use: former Date of last use: 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 Household members: family and other Details: Takes care of his father 87 years old Housing: House Vitals/I&O/Wt Last Vital Signs Temp 98.3 F 01/22/20 04:00 Pulse 77 01/22/20 06:00 Resp 16 01/22/20 06:00 BP 163/97 01/22/20 06:00 Pulse Ox 100 01/22/20 06:00 01/21/20 01/21/20 01/22/20 14:59 22:59 06:59 Intake Total 50 / 50 50 / 100 Output Total 400 / 400 Balance 50 / 50 -350 / -300 Weight last 48 hrs Weight 140 lb Physical Exam Const: COMMON NORMALS: no acute distress and patient oriented x3 GENERAL APPEARANCE: cooperative, comfortable, ill appearing, frail appearing and appears older than stated age NUTRITIONAL APPEARANCE: cachectic ORIENTATION/CONSCIOUSNESS: Yes awake, Yes oriented to person and Yes oriented to place Chest: CHEST: Yes abnormal inspection of the chest barrel chest and increased A-P diameter and Yes Symmetrical chest wall rise Resp: EFFORT & INSPECTION: Yes symmetric chest movement AUSCULTATION: diminished lung sounds on the left Cardio: COMMON NORMALS: S1 normal heart sound present, S2 normal heart sound present and No murmurs present (Cardio) HEART SOUNDS: S1 normal heart sound present and S2 normal heart sound present PERIPHERAL PULSES: radial pulses present positive bilateral 2+ Neuro: COMMON NORMALS: patient oriented x3, no focal motor deficits and no sensory deficits noted SENSORIUM/ORIENTATION: Yes oriented to person and Yes oriented to place Data Micro: Micro: Microbiology 01/21/20 19:37 Legionella Urinary Antigen - Final Urine,Clean Catch 01/21/20 20:20 Blood Culture - Pr eliminary Blood SPECIMEN [facility] DEANDRA 01/21/20 18:00 Blood Culture - Pr eliminary Blood SPECIMEN [facility] DEANDRA A&P Assessment and plan (1) Loculated pleural effusion: 54-year-old gentleman with a fairly substantial loculated left pleural effusion and recent coronary stenting to the LAD 2 months ago in [place]. He developed subsequent ammonia following that procedure. Has a loculated left pleural effusion. Current patient also includes non-STEMI Plan: We will plan for left pleural drain versus chest tube placement with ultrasound guidance. Rationale was carefully discussed with Bam. Details and risk of procedure reviewed. Proper consents have been provided for review and signature. Status: Acute Consult Attestations Medical Necessity Statement: Large left pleural effusion, loculated Time Spent in Patient Care: 16 - 35 minutes Coding Level of Care Code New Pt Acute Automatic Lehr Operator for Chg Fwd Patient Type New History Detailed Exam Detailed Medical Decision Making Moderate Complexity Diagnoses Loculated pleural effusion J90 Time Spent (min) 40
[2020-01-22] MEDS: ondansetron 2 mg/ML SDV 2 mL 4 MG IVP (07:36)
[2020-01-22] MEDS: atorvastatin 40 mg Tablet PO (07:37)
[2020-01-22] MEDS: aspirin 81 mg EC Tablet PO (07:37)
[2020-01-22] MEDS: folic acid 1 mg Tablet PO (07:39)
[2020-01-22] MEDS: lisinopril 2.5 mg Tablet PO (07:40)
[2020-01-22] MEDS: potassium chloride ER 10 mEq Tablet 20 MEQ PO (07:40)
[2020-01-22] MEDS: pantoprazole DR 40 mg Tablet PO (07:41)
[2020-01-22] MEDS: metoprolol succinate ER (24 HR) 25 mg Tablet 12.5 MG PO (07:41)
[2020-01-22] MEDS: carvedilol 3.125 mg Tablet PO ×2 (07:41→16:15)
[2020-01-22] MEDS: sertraline 50 mg Tablet PO (07:42)
[2020-01-22] MEDS: tamsulosin 0.4 mg Capsule PO (07:42)
[2020-01-22] MEDS: thiamine 100 mg Tablet PO (07:43)
--- NOTE | 2020-01-22 08:40 | ANES.PREANE2 ---
Pre-Anesthetic Assessment Pre-Anesthetic Assessment: Height/Weight: Height 1.73 m Weight 63.503 kg Temp Pulse Resp BP Pulse Ox 98.3 F 77 20 H 163/97 100 01/22/20 04:00 01/22/20 06:00 01/22/20 07:37 01/22/20 06:00 01/22/20 06:00 Preop Diagnosis: Loculated pleural effusion Proposed Procedure: Operation Date: 01/22/20 12:20 Proposed Procedures p Chest Tube Insertion(Not Applicable) - Mitchel Meneses MD Familial anesthetic complications: None Was Beta Melissa taken within 24 hours: Yes Last intake: NPO > 8 hrs Social: Social History: Tobacco Comment: heavy alcohol use 8 years ago Exam: Pre-Anes Outpt Exam: alert, oriented x 3, clear to auscultation bilaterally and regular rate & rhythm Airway: Cervical ROM: WNL MP: 2 Additional comments: missing/chipped poor dentition Pulmonary: Comments: loculated pleural effusion with recent pneumonia CV/HEM: CV/HEM: CAD (recent stents on plavix), CHF, HTN and [place] Comments: ef 40% : : None reported Hepatic: Hepatic: None reported GI: GI: GERD Comments: pancreatitis Metabolic: Metabolic: DM and Hyperlipidemia Neuropsych: Neuropsych: None reported Anesthetic Plan: ASA status: 4 Anesthesia: MAC Risk of > 500 ml blood loss (7ml/kg in children): No Meds/Allergies Current Medications: Current Medications Generic Name Dose Route Start Last Admin Trade Name Freq PRN Reason Stop Dose Admin Lipase/Protease/Am ylase 1 each 01/21/20 21:00 01/21/20 22:41 Zenpep PO Not Given TID ALBERTINA Aspirin 81 mg 01/22/20 09:00 01/22/20 07:37 Aspirin Ec PO 81 mg DAILY ALBERTINA Administration Atorvastatin Calci um 40 mg 01/22/20 09:00 01/22/20 07:37 Lipitor PO 40 mg DAILY ALBERTINA Administration Carvedilol 3.125 mg 01/22/20 09:00 01/22/20 07:41 Coreg PO 3.125 mg BID ALBERTINA Administration Folic Acid 1 mg 01/22/20 09:00 01/22/20 07:39 Folic Acid PO 1 mg DAILY ALBERTINA Administration Furosemide 40 mg 01/22/20 06:00 01/22/20 05:29 Lasix PO 40 mg QAM ALBERTINA Administration Vancomycin HCl 1,2 50 mg/ 250 mls @ 250 mls /hr 01/22/20 02:00 01/22/20 01:40 Sodium Chloride IV 250 mls/hr Q12H ALBERTINA Administration Protocol As Directed Piperacillin Sod/T azobactam 50 mls @ 12.5 mls /hr 01/21/20 22:00 01/22/20 05:28 Sod 3.375 gm/ So dium Chloride IV 12.5 mls/hr Q8H ALBERTINA Administration Protocol As Directed Isosorbide Mononit rate 30 mg 01/22/20 06:00 01/22/20 05:28 Imdur PO 30 mg QAM ALBERTINA Administration Levofloxacin 750 mg 01/22/20 06:00 01/22/20 05:28 Levaquin PO 750 mg DAILY@0600 [facility] Administration Protocol Lisinopril 2.5 mg 01/22/20 09:00 01/22/20 07:40 Prinivil PO 2.5 mg DAILY ALBERTINA Administration Metoprolol Succina te 12.5 mg 01/22/20 09:00 01/22/20 07:41 Toprol Xl PO 12.5 mg DAILY ALBERTINA Administration Morphine Sulfate 2 mg 01/21/20 20:54 01/22/20 07:37 Morphine IVP 2 mg Q4H PRN Administration SEVERE PAIN Nitroglycerin 0.4 mg 01/21/20 20:54 01/22/20 07:36 Nitrostat SUBLINGUAL 0.4 mg Q5M PRN Administration chest pain Ondansetron HCl 4 mg 01/21/20 20:54 01/22/20 07:36 Zofran IVP 4 mg Q6H PRN Administration NAUSEA AND VOMITI NG Pantoprazole Sodiu m 40 mg 01/22/20 09:00 01/22/20 07:41 Protonix PO 40 mg DAILY ALBERTINA Administration Potassium Chloride 20 meq 01/22/20 09:00 01/22/20 07:40 Klor-Con 10 PO 20 meq DAILY ALBERTINA Administration Sertraline HCl 50 mg 01/22/20 09:00 01/22/20 07:42 Zoloft PO 50 mg DAILY ALBERTINA Administration Tamsulosin HCl 0.4 mg 01/22/20 09:00 01/22/20 07:42 Flomax PO 0.4 mg DAILY ALBERTINA Administration Thiamine Mononitra te 100 mg 01/22/20 09:00 01/22/20 07:43 Vitamin B-1 PO 100 mg DAILY ALBERTINA Administration PFSH Anesthesia PFSH: Medical History BPH (benign prostatic hyperplasia) Follows up with Dr. Bryant Bladder outlet obstruction CAD (coronary artery disease) CHF (congestive heart failure) EF 40% Chronic pancreatitis Secondary to alcoholism Constipation LIZZIE (generalized anxiety disorder) GERD (gastroesophageal reflux disease) Hx of hypokalemia Hypertension Peripheral neuropathy Presence of pancreatic duct stent Type 2 diabetes mellitus Surgical History H/O cardiac catheterization Recent stent at [place] 2 months ago Stented coronary artery Family History Denies family history of Lung disease Hypertension Social History Smoking and tobacco status: current every day smoker cigarettes Alcohol intake: former Substance/Drug Use: former Date of last use: 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 Household members: family and other Details: Takes care of his father 87 years old Housing: House Data Anesthesia CBC & Chem 7: 01/22/20 03:40 01/22/20 03:40 Other Labs: Laboratory Results - last 48 hr 01/21/20 01/21/20 01/21/20 18:00 18:00 18:00 WBC 8.1 RBC 2.83 L Hgb 9.2 L Hct 28.0 L MCV 98.9 H MCH 32.5 MCHC 32.9 RDW 13.2 Plt Count 163 MPV 12.1 H Neut % (Auto) 65.8 Lymph % (Auto) 24.9 [place] % (Auto) 7.3 Eos % (Auto) 0.9 Baso % (Auto) 0.7 Neut # (Auto) 5.3 Lymph # (Auto) 2.0 [place] # (Auto) 0.6 Eos # (Auto) 0.1 Baso # (Auto) 0.1 Nucleated RBC % (auto) 0 Nucleated RBCs # 0.0 PT 15.20 H INR 1.16 APTT 33.8 Sodium 137 Potassium 3.4 L Chloride 91 L Carbon Dioxide 27 Anion Gap 22.4 H BUN 5 L Creatinine 0.7 GFR Calculation 116.7 Glucose 376 H Calculated Osmolality 295 Calcium 8.3 L Total Bilirubin 0.4 AST 61 H ALT 32 Alkaline Phosphatase 193 H Lactate Dehydrogenase Troponin I 6 Hour Troponin I Hi Sens Del Troponin T Baseline Troponin T 120 Minute Delta Troponin T NT-Pro-B Natriuret Pep 64629 H Total Protein 6.3 L Albumin 3.0 L Globulin 3.3 Vitamin B12 Procalcitonin Urine Color Urine Appearance Urine pH Ur Specific [place] Urine Protein Urine Glucose (UA) Urine Ketones Urine Blood Urine Nitrate Urine Bilirubin Urine Urobilinogen Ur Leukocyte Esterase Ethyl Alcohol < 10 01/21/20 01/21/20 01/21/20 18:00 18:00 19:37 WBC RBC Hgb Hct MCV MCH MCHC RDW Plt Count MPV Neut % (Auto) Lymph % (Auto) [place] % (Auto) Eos % (Auto) Baso % (Auto) Neut # (Auto) Lymph # (Auto) [place] # (Auto) Eos # (Auto) Baso # (Auto) Nucleated RBC % (auto) Nucleated RBCs # PT INR APTT Sodium Potassium Chloride Carbon Dioxide Anion Gap BUN Creatinine GFR Calculation Glucose Calculated Osmolality Calcium Total Bilirubin AST ALT Alkaline Phosphatase Lactate Dehydrogenase Troponin I 6 Hour Troponin I Hi Sens Del Troponin T Baseline 184 H* Troponin T 120 Minute Delta Troponin T NT-Pro-B Natriuret Pep Total Protein Albumin Globulin Vitamin B12 Procalcitonin 0.05 Urine Color Yellow Urine Appearance Clear Urine pH 5 Ur Specific [place] 1.015 Urine Protein Neg Urine Glucose (UA) 4+ H Urine Ketones Negative Urine Blood Neg Urine Nitrate Negative Urine Bilirubin Neg Urine Urobilinogen Norm Ur Leukocyte Esterase Negative Ethyl Alcohol 01/21/20 01/22/20 01/22/20 20:20 00:25 01:05 WBC RBC Hgb 8.7 L Hct 27.0 L MCV MCH MCHC RDW Plt Count MPV Neut % (Auto) Lymph % (Auto) [place] % (Auto) Eos % (Auto) Baso % (Auto) Neut # (Auto) Lymph # (Auto) [place] # (Auto) Eos # (Auto) Baso # (Auto) Nucleated RBC % (auto) Nucleated RBCs # PT INR APTT Sodium Potassium Chloride Carbon Dioxide Anion Gap BUN Creatinine GFR Calculation Glucose Calculated Osmolality Calcium Total Bilirubin AST ALT Alkaline Phosphatase Lactate Dehydrogenase Troponin I 6 Hour 164.6 H Troponin I Hi Sens Del -19.4 L Troponin T Baseline Troponin T 120 Minute 165.4 H Delta Troponin T -18.6 L NT-Pro-B Natriuret Pep Total Protein Albumin Globulin Vitamin B12 Procalcitonin Urine Color Urine Appearance Urine pH Ur Specific [place] Urine Protein Urine Glucose (UA) Urine Ketones Urine Blood Urine Nitrate Urine Bilirubin Urine Urobilinogen Ur Leukocyte Esterase Ethyl Alcohol 01/22/20 01/22/20 01/22/20 01:05 03:40 03:40 WBC 7.2 RBC 2.92 L Hgb 9.4 L Hct 28.8 L MCV 98.6 H MCH 32.2 MCHC 32.6 RDW 13.2 Plt Count 163 MPV 12.6 H Neut % (Auto) 61.3 Lymph % (Auto) 27.4 [place] % (Auto) 8.4 Eos % (Auto) 1.5 Baso % (Auto) 1.0 Neut # (Auto) 4.4 Lymph # (Auto) 2.0 [place] # (Auto) 0.6 Eos # (Auto) 0.1 Baso # (Auto) 0.1 Nucleated RBC % (auto) 0 Nucleated RBCs # 0.0 PT INR APTT Sodium 134 L Potassium 3.6 Chloride 95 L Carbon Dioxide 30 H Anion Gap 12.6 BUN 6 Creatinine 0.6 L GFR Calculation 139.4 H Glucose 292 H Calculated Osmolality 285 Calcium 8.3 L Total Bilirubin 0.4 AST 53 H ALT 32 Alkaline Phosphatase 180 H Lactate Dehydrogenase 168 Troponin I 6 Hour Troponin I Hi Sens Del Troponin T Baseline Troponin T 120 Minute Delta Troponin T NT-Pro-B Natriuret Pep Total Protein 6.1 L Albumin 2.9 L Globulin 3.2 Vitamin B12 639 Procalcitonin Urine Color Urine Appearance Urine pH Ur Specific [place] Urine Protein Urine Glucose (UA) Urine Ketones Urine Blood Urine Nitrate Urine Bilirubin Urine Urobilinogen Ur Leukocyte Esterase Ethyl Alcohol Micro: Microbiology 01/21/20 20:07 Gram Stain - Final Sputum - Expectorated Sputum 01/21/20 19:37 Legionella Urinary Antigen - Final Urine,Clean Catch 01/21/20 20:20 Blood Culture - Preliminary Blood SPECIMEN COLLECTED 01/21/20 18:00 Blood Culture - Preliminary Blood SPECIMEN COLLECTED Cardiac Studies: No Data to Display
--- NOTE | 2020-01-22 09:43 | PM.PN ---
Subjective Subjective: Interval history: Admitted overnight. H&P and labs noted. Today morning on evaluation patient is lying comfortably in bed. He is complaining of occasional central chest pain. He states at home he has been having chest pain rating to bilateral arms which gets worse on exertion. He has been getting mildly short of breath more on exertion then on lying down. He denies of having any fever, runny nose. Does complain of having cough on and off with occasional expectoration. He does state that for last couple of days he has not been able to take his medication because of nausea which comes on whenever he has a chest pain. Vitals/I&O/Wt Last Vital Signs Temp 98.3 F 01/22/20 04:00 Pulse 76 01/22/20 08:51 Resp 20 H 01/22/20 07:37 BP 163/97 01/22/20 06:00 Pulse Ox 94 01/22/20 08:51 01/21/20 01/22/20 01/22/20 22:59 06:59 14:59 Intake Total 50 / 50 50 / 100 Output Total 400 / 400 Balance 50 / 50 -350 / -300 Weight last 48 hrs Weight 63.503 kg Physical Exam Narrative: EXAM NARRATIVE: General: No acute distress, AO x3, thin, frail HEENT: PERRLA, pupils bilaterally equal and reactive Chest: Normal vesicular breath sounds, no added sounds, equal good air entry bilaterally, decreased air entry left middle zone, tenderness in the rib cage on the left middle zone CVS: S1-S2 regular, no murmurs, no tachycardia, no gallops, no rubs Abdomen: Soft, nontender, no organomegaly, bowel sounds present Neuro: No focal deficits, no facial deformity, AO x3, power 5/5 in all limbs Data : 01/22/20 03:40 01/22/20 03:40 Micro: Microbiology 01/21/20 20:07 Gram Stain - Final Sputum - Expectorated Sputum 01/21/20 19:37 Legionella Urinary Antigen - Final Urine,Clean Catch 01/21/20 20:20 Blood Culture - Preliminary Blood SPECIMEN COLLECTED 01/21/20 18:00 Blood Culture - Preliminary Blood SPECIMEN COLLECTED A&P Assessment and plan (1) CAD (coronary artery disease): Status: Chronic Qualifiers: Associated angina: with stable angina Coronary Disease-Associated Artery/Lesion type: [place] artery [place] vs. transplanted heart: [place] heart Qualified Code(s): I25.118 - Atherosclerotic heart disease of [place] coronary artery with other forms of angina pectoris (2) NSTEMI (non-ST elevated myocardial infarction): Status: Acute (3) Loculated pleural effusion: Status: Acute (4) CHF (congestive heart failure): Status: Chronic Qualifiers: Heart failure chronicity: acute Heart failure type: systolic Qualified Code(s): I50.21 - Acute systolic (congestive) heart failure (5) Type 2 diabetes mellitus: Status: Chronic Qualifiers: Diabetes mellitus complication status: with other specified complication Diabetes mellitus prison insulin use: with terminal press operator use Qualified Code(s): E11.69 - Type 2 diabetes mellitus with other specified complication; Z79.4 - assistant terminal manager (current) use of 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 Status: Chronic (9) GERD (gastroesophageal reflux disease): Status: Chronic Qualifiers: Esophagitis presence: without esophagitis Qualified Code(s): K21.9 - Gastro-esophageal reflux disease without esophagitis Additional A&P Information Non-ST segment elevation [place]/unstable angina: Recent history of PCI to possibly LAD at [facility] 2 months ago. Patient got full dose aspirin and therapeutic Lovenox last night. Patient's troponin overnight trended down with delta of -19. Given his history, smoking history, typical symptoms I am concerned patient is having unstable angina. Will request documents from [facility] regarding his cardiac angiogram. We will consult cardiology for further evaluation. Patient would most likely need either a stress test or cardiac catheterization. For now continue with aspirin, statin, Plavix, Imdur, carvedilol, lisinopril. Continue with Nitropaste. For now we will hold off on echocardiogram as most likely patient had an echocardiogram recently 2 months ago. Will await further documentation. Add troponins with the morning labs to see the trend. Loculated left-sided pleural effusion: Could be related to recent pneumonia. Patient was seen by Dr. Meneses earlier in the morning. Patient to undergo chest tube placement for the same under local anesthesia today. Patient has remained afebrile, has no sign of sepsis. Check procalcitonin, MRSA swab, chances of current pneumonia are low. Overnight patient was started on vancomycin, Zosyn and Levaquin. For now we will continue with vancomycin and Zosyn. Patient remains afebrile next 24 hours we will stop the antibiotics. By then we will also have the results of pleural fluid. Congestive heart failure without acute decompensation As per previous echo ejection fraction is 40% No active decompensated For now we will continue with Lasix 40 mg IV daily. Strict input output charting, daily weights. Type 2 diabetes: Currently n.p.o. for the procedure. Once able to eat and start on cardiac carb consistent diet. Insulin sliding scale at mild protocol. Hold oral hypoglycemic. New onset macrocytic anemia Patient is denying dark-colored stools, hemoptysis or hematemesis Check FOBT Given his history of chronic alcoholism we will check vitamin B12, folate levels. Continue with oral thiamine and folic acid. GERD: Continue Protonix Patient is a current smoker, smokes 5 to 6 cigarettes a day Counseled on smoking cessation Full code Lives with his father, his brother lives nearby N.p.o., carb consistent cardiac diet postprocedure Holding therapeutic Lovenox in anticipation of intervention Attestations Medical Necessity Statement*: Unstable angina, recent STEMI, loculated left-sided pleural effusion Time Spent in Patient Care: Greater than 35 minutes (>than 50% of time spent in counselling and/or direct pt care on unit). Coding Level of Care Code Acute [place] Laster for g Fwd Diagnoses CAD (coronary artery disease) I25.118 Associated angina: with stable angina Coronary Disease-Associated Artery/Lesion type: [place] artery [place] vs. transplanted heart: [place] heart NSTEMI (non-ST elevated myocardial infarction) I21.4 Loculated pleural effusion J90 CHF (congestive heart failure) I50.21 Heart failure chronicity: acute Heart failure type: systolic Type 2 diabetes mellitus E11.69; Z79.4 Diabetes mellitus complication status: with other specified complication Diabetes mellitus terminal press operator insulin use: with terminal press operator use Macrocytic anemia D53.9 Chronic pancreatitis K86.1 LIZZIE (generalized anxiety disorder) F41.1 GERD (gastroesophageal reflux disease) K21.9 Esophagitis presence: without esophagitis
[2020-01-22 09:53] LABS: Procalcitonin 0.04 ng/mL (0-0.5); Thyroid Stimulating Hormone 1.29 uIU/mL (0.27-4.20)
[2020-01-22 10:13] LABS: Iron 28 ug/dL (59-158); Percent Saturation 16.6 % (20-50); Total Iron Binding Capacity 168 mcg/dl; Unsaturated Iron Binding 140 ug/dL (112-347)
[2020-01-22] MEDS: FUROsemide 10 mg/mL SDV 4mL 40 MG IVP (10:31)
[2020-01-22] MEDS: CLONazepam 0.5 mg Tablet PO (10:32)
--- NOTE | 2020-01-22 10:45 | PC.NURSE ---
PERMITS SIGNED. AWAITING SURGERY TO LANGUAGE INSTRUCTOR PATIENT FOR HIS CHEST TUBE. HE IS IN PAIN AND ANXIOUS, CRYING. CLONIPIN RESTARTED. VOIDING FREQUENTLY.
[2020-01-22 10:50] LABS: Folate Level > 20.0 ng/mL (4.5-32.2)
[2020-01-22 11:35] LABS: Troponin T (5th) Once 205 ng/L (0-15)
[2020-01-22 11:59] LABS: Influenza A by IFA Negative (Negative); Influenza B by IFA Negative (Negative)
--- NOTE | 2020-01-22 12:46 | P.CONIM_ITS ---
Providers/Reason For Consult Consulting Physican/Specialty*: Cardiology Reason for Consult*: Non-ST elevation WI Attending Physician: Job Freeman MD Primary Care Provider: Silvana Nieves MD History of Present Illness History of Present Illness Miguel Kuhn is a 54 year old male past medical history significant for history of extensive coronary artery disease status post multiple stents since 2009, 2012 and recently couple of months ago possible in LAD at [facility]. After that patient suffered from an episode of pneumonia complicated with parapneumonic effusion was admitted with worsening of chest pain mostly upon exertion and sometimes at rest. Patient was also noted to be short of breath, cardiac markers with fifth generation troponin peaked at 202 consistent with non-ST elevation WI. Patient was admitted and suggested for effusion drainage. Today patient underwent left side percutaneous drainage. We have been asked to assist in his care. According to the patient for the past few days he has been noticing left-sided chest pain along with shortness of breath he denies pleuritic type of pain he admits to central chest pain and sometimes radiating to left arm it is very hard to differentiate. Review of Systems Const: Reports: body aches, change in appetite, change in weight, fatigue and malaise; Denies: fever(s) or chills Eyes: Denies: change in vision ENMT: Denies: throat pain, swelling of lips/tongue or sinus pain Card: Reports: chest pain, edema and dyspnea on exertion; Denies: palpitations, irregular heart rhythm, swelling of feet/ankles, syncope, pre-syncope, orthopnea or leg pain with exertion Resp: Reports: dyspnea, non-productive cough and pain on inspiration; Denies: productive cough, wheezing or hemoptysis GI: Reports: nausea; Denies: abdominal pain, vomiting, constipation or bloating : Denies: flank pain, difficulty urinating, dysuria or hematuria Musc: Reports: back pain and decrease in muscle mass; Denies: neck pain or loss of height Skin/Breast: Denies: rash, pruritus or erythema Neuro: Reports: weakness in extremities and dizziness; Denies: headache(s) or confusion Psych: Reports: anxiety; Denies: depression Endo: Denies: polyuria Oumar/Lymph: Denies: easy bruising All/Imm: Denies: urticaria Meds/Allergies Home Medications and Allergies Home Medications Medication Instructions Recorded Confirmed Last Taken Type aspirin 81 mg tablet,delayed 81 mg PO DAILY 30 Days #30 tab 01/01/20 01/21/20 Unknown Rx release atorvastatin 40 mg tablet 40 mg PO DAILY 30 Days #30 tab 01/01/20 01/21/20 Unknown Rx carvedilol 3.125 mg tablet 3.125 mg PO BID 30 Days #60 tab 01/01/20 01/21/20 Unknown Rx clonazepam 0.5 mg tablet 0.5 mg PO DAILY PRN 90 Days #30 tab 01/01/20 01/21/20 Unknown Rx clopidogrel 75 mg tablet 75 mg PO DAILY 30 Days #30 tab 01/01/20 01/21/20 Unknown Rx docusate sodium 100 mg tablet 100 mg PO BID 30 Days #60 tab 01/01/20 01/21/20 Unknown Rx famotidine 20 mg tablet 20 mg PO BID 30 Days #60 tab 01/01/20 01/21/20 Unknown Rx folic acid 1 mg tablet 1 mg PO DAILY 30 Days #30 tab 01/01/20 01/21/20 Unknown Rx furosemide 40 mg tablet 40 mg PO QAM 30 Days #30 tab 01/01/20 01/21/20 Unknown Rx isosorbide mononitrate 30 mg 30 mg PO QAM 30 Days #30 tab 01/01/20 01/21/20 Unknown Rx tablet,extended release 24 hr eguqtw-tqfytmer-xhovdtt 1 cap PO TID 30 Days #90 cap 01/01/20 01/21/20 Unknown Rx 6,000-19,000-30,000 unit capsule,delayed rel lisinopril 2.5 mg tablet 2.5 mg PO DAILY 30 Days #30 tab 01/01/20 01/21/20 Unknown Rx metformin 1,000 mg tablet 1,000 mg PO BID 30 Days #60 tab 01/01/20 01/21/20 Unknown Rx nitroglycerin 0.4 mg sublingual 0.4 mg SUBLINGUAL Q5M PRN #14 tab 01/01/20 01/21/20 Unknown Rx tablet pantoprazole 40 mg tablet,delayed 40 mg PO DAILY 30 Days #30 tab 01/01/20 01/21/20 Unknown Rx release potassium chloride 20 mEq 20 meq PO DAILY 30 Days #30 tab 01/01/20 01/21/20 Unknown Rx tablet,extended release sertraline 50 mg tablet 50 mg PO DAILY 30 Days #30 tab 01/01/20 01/21/20 Unknown Rx tamsulosin 0.4 mg capsule 0.4 mg PO DAILY 30 Days #30 cap 01/01/20 01/21/20 Unknown Rx thiamine HCl (vitamin B1) 100 mg 50 mg PO DAILY 30 Days #30 tab 01/01/20 01/21/20 Unknown Rx tablet Novolog Flexpen U-100 Insulin See Rx Instructions .ROUTE 01/21/20 01/21/20 01/21/20 12:00 History .COMPLEX MDD 30 units cbtngx-kwidmfej-tvocemp [Zenpep] 1 cap PO TID 01/21/20 01/21/20 Unknown History metoprolol tartrate See Rx Instructions .ROUTE .COMPLEX 01/21/20 01/21/20 Unknown History Allergies Allergy/AdvReac Type Severity Reaction Status Date / Time No Known Allergies Allergy Verified 01/21/20 18:40 Current Medications Current Medications Generic Name Dose Route Start Last Admin Trade Name Freq PRN Reason Stop Dose Admin Lipase/Protease/Amylase 1 each 01/21/20 21:00 01/21/20 22:41 Zenpep PO Not Given TID ALBERTINA Aspirin 81 mg 01/22/20 09:00 01/22/20 07:37 Aspirin Ec PO 81 mg DAILY ALBERTINA Administration Atorvastatin Calcium 40 mg 01/22/20 09:00 01/22/20 07:37 Lipitor PO 40 mg DAILY ALBERTINA Administration Carvedilol 3.125 mg 01/22/20 09:00 01/22/20 07:41 Coreg PO 3.125 mg BID ALBERTINA Administration Clonazepam 0.5 mg 01/22/20 09:37 01/22/20 10:32 Klonopin PO 0.5 mg DAILY PRN Administration anxiety Folic Acid 1 mg 01/22/20 09:00 01/22/20 07:39 Folic Acid PO 1 mg DAILY ALBERTINA Administration Furosemide 40 mg 01/22/20 09:30 01/22/20 10:31 Lasix IVP 40 mg Q24H ALBERTINA Administration Vancomycin HCl 1,250 mg/ 250 mls @ 250 mls/hr 01/22/20 02:00 01/22/20 01:40 Sodium Chloride IV 250 mls/hr Q12H ALBERTINA Administration Protocol As Directed Piperacillin Sod/Tazobactam 50 mls @ 12.5 mls/hr 01/21/20 22:00 01/22/20 11:49 Sod 3.375 gm/ Sodium Chloride IV Infused Q8H ALBERTINA Infusion Protocol As Directed Isosorbide Mononitrate 30 mg 01/22/20 06:00 01/22/20 05:28 Imdur PO 30 mg QAM ALBERTINA Administration Lisinopril 2.5 mg 01/22/20 09:00 01/22/20 07:40 Prinivil PO 2.5 mg DAILY ALBERTINA Administration Morphine Sulfate 2 mg 01/21/20 20:54 01/22/20 11:49 Morphine IVP 2 mg Q4H PRN Administration SEVERE PAIN Nitroglycerin 0.4 mg 01/21/20 20:54 01/22/20 07:36 Nitrostat SUBLINGUAL 0.4 mg Q5M PRN Administration chest pain Ondansetron HCl 4 mg 01/21/20 20:54 01/22/20 07:36 Zofran IVP 4 mg Q6H PRN Administration NAUSEA AND VOMITING Pantoprazole Sodium 40 mg 01/22/20 09:00 01/22/20 07:41 Protonix PO 40 mg DAILY ALBERTINA Administration Potassium Chloride 20 meq 01/22/20 09:00 01/22/20 07:40 Klor-Con 10 PO 20 meq DAILY ALBERTINA Administration Sertraline HCl 50 mg 01/22/20 09:00 01/22/20 07:42 Zoloft PO 50 mg DAILY ALBERTINA Administration Tamsulosin HCl 0.4 mg 01/22/20 09:00 01/22/20 07:42 Flomax PO 0.4 mg DAILY ALBERTINA Administration Thiamine Mononitrate 100 mg 01/22/20 09:00 01/22/20 07:43 Vitamin B-1 PO 100 mg DAILY ALBERTINA Administration PFSH Acute PFSH: Medical History BPH (benign prostatic hyperplasia) Follows up with Dr. Bryant Bladder outlet obstruction CAD (coronary artery disease) CHF (congestive heart failure) EF 40% Chronic pancreatitis Secondary to alcoholism Constipation LIZZIE (generalized anxiety disorder) GERD (gastroesophageal reflux disease) Hx of hypokalemia Hypertension Peripheral neuropathy Presence of pancreatic duct stent Type 2 diabetes mellitus Surgical History H/O cardiac catheterization Recent stent at [facility] 2 months ago Stented coronary artery Family History Denies family history of Lung disease Hypertension Social History Smoking and tobacco status: current every day smoker cigarettes Alcohol intake: former Substance/Drug Use: former Date of last use: 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 Household members: family and other Details: Takes care of his father 87 years old Housing: House Dietary Habits: Current diet type/program: regular Caffeine: Yes Caffeine intake frequency: coffee Number of coffee servings: 2 Exercise: What type of physical activity do you participate in?: none Physical activity functional status: independent ambulation and normal ROM and activity Safety: Seatbelt use: always Home Safety: Working smoke detector in home: Yes Personal Safety: Do you feel safe at home: Yes Victim of physical abuse: No Victim of emotional abuse: No Victim of sexual abuse: No Would you lik e help information on resources?: No Vitals/I&O/Wt Last Vital Signs Temp 97.9 F 01/22/20 08:00 Pulse 76 01/22/20 08:51 Resp 22 H 01/22/20 11:49 BP 163/97 01/22/20 06:00 Pulse Ox 94 01/22/20 08:51 01/21/20 01/22/20 01/22/20 22:59 06:59 14:59 Intake Total 50 / 50 50 / 100 100 / 100 Output Total 400 / 400 1700 / 1700 Balance 50 / 50 -350 / -300 -1600 / -1600 Weight last 48 hrs Weight 140 lb Physical Exam Narrative: EXAM NARRATIVE: GENERAL: Patient is alert, awake and oriented x3. NECK: No jugular vein distension. HEENT: No cyanosis. No icterus. No pallor. HEART: Regular S1 and S2. No murmur, rub or gallop. LUNGS: Decreased breath sounds on the left side, clear on the right ABDOMEN: Soft, nontender and nondistended. Positive bowel sounds. No guarding, rebound or tenderness. CENTRAL NERVOUS SYSTEM: Grossly nonfocal. EXTREMITIES: Lower extremities without edema bilaterally. Data Micro: Micro: Microbiology 01/21/20 20:07 Gram Stain - Final Sputum - Expector ated Sputum 01/21/20 19:37 Legionella Urinary Antigen - Final Urine,Clean Catch 01/21/20 20:20 Blood Culture - Pr eliminary Blood SPECIMEN [facility] 01/21/20 18:00 Blood Culture - Pr eliminary Blood SPECIMEN [facility] A&P Assessment and plan (1) Loculated pleural effusion: Patient underwent percutaneous drainage. Continue antibiotics Status: Acute (2) NSTEMI (non-ST elevated myocardial infarction): Patient suffered non-ST elevation WI. He is status post left pleural effusion drainage. His chest pain is more cardiac than pleuritic however at this point I would like to manage him medically, would like to review his medical record we will continue anticoagulation if possible along with antiplatelet activity however if we notice that patient continues to have ischemia episode we will proceed with angiogram. Status: Acute (3) CHF (congestive heart failure): Well compensated. Continue meds Status: Chronic Qualifiers: Heart failure type: systolic Heart failure chronicity: acute Qualified Code(s): I50.21 - Acute systolic (congestive) heart failure (4) Hypertension: Borderline low. Continue to monitor Status: Chronic Qualifiers: Hypertension type: essential hypertension Qualified Code(s): I10 - Essential (primary) hypertension Coding Level of Care Code New Pt Acute Custodial Officer for Chg Fwd Patient Type New History Detailed Exam Detailed Medical Decision Making Moderate Complexity Diagnoses Loculated pleural effusion J90 NSTEMI (non-ST elevated myocardial infarction) I21.4 CHF (congestive heart failure) I50.21 Heart failure type: systolic Heart failure chronicity: acute Hypertension I10 Hypertension type: essential hypertension
--- NOTE | 2020-01-22 13:17 | SC_ITS ---
WS: [id number] INTRAOPERATIVE TECHNIQUE: 2 Spot fluoroscopic images for intraoperative purposes. FLUOROSCOPY TIME: 27.3 seconds CLINICAL INFORMATION: chest tube COMPARISON: None. FINDINGS: Partially visualized left chest tube placement. SC/C-arm FL for Drainage [id number] IMPRESSION: Images obtained for intraoperative purposes.
[2020-01-22] MEDS: lidocaine 1% INJ 20 mL INJECTION (13:34)
[2020-01-22] MEDS: ipratropium-albuterol 3 mL Neb INHALATION ×2 (14:20→20:12)
--- NOTE | 2020-01-22 14:21 | PM.OP ---
Operative Report Date of procedure: January 22, 2020 Pre-op Diagnosis: Loculated pleural effusion Post-op diagnosis: same Procedure Done: Left pleural [place] drain placement Specimens removed/disposition: Total of 600 cc clear mali fluid collected. 60 cc collected for culture and analysis Surgeon: Mitchel Meneses Anesthesia: MAC and Local (10 cc 1% lidocaine infiltrated locally) Complications: None Condition: stable Disposition: ICU Brief History: 54-year-old gentleman admitted with non-STEMI and loculated left pleural effusion with recent history for pneumonia. Pleural drain placement recommended. Details risk of procedure carefully discussed. Procedure: The entire left chest was sterilely prepped and draped. 1% lidocaine was infiltrated in the posterior axillary line approximately at the fifth interspace level. Introducer needle was then placed with return of mali-colored pleural fluid. Fluoroscopy was subsequently utilized throughout the procedure for guidewire and dilator advancement and subsequent introducer positioning and [place] catheter drain placement. Lidocaine was utilized to infiltrate the subcutaneous layer continuing anteriorly. A #11 scalpel blade was used to incise the skin on the guidewire and also anteriorly. Tunneler was utilized to pass the drain anteriorly to posteriorly in the subcutaneous fashion. Dilators were then placed over the guidewire to dilate the tract into the pleural space. Dilator and tear away sheath was then placed. Dilator was removed and pleural drain was placed to the tear-away sheath and the tear-away sheath was then removed. Drain was easily aspirated of 600 cc of clear mali-colored pleural fluid. Specimen collected for analysis. Once completed, the incisions were closed with 3-0 Vicryl suture and Monocryl. A silk suture was utilized to secure the drain to the skin. Patient tolerated procedure well. Sterile dressings were applied. Mr. Kuhn was returned to the ICU.
[2020-01-22] MEDS: HYDROcodone-acetaminophen 5-325 mg Tablet 1 TAB PO (16:16)
[2020-01-22] MEDS: ALPRAZolam 0.5 mg Tablet PO (16:17)
[2020-01-22 16:35] LABS: Glucose Point of Care 168 mg/dL (70-110)
--- NOTE | 2020-01-22 18:02 | PC.NURSE ---
patient highly anxious and hungry around 4pm. dr phan aware. pain and anxiety addressed. bp soft, had continued to void heavily most of the afternoon. an extra 200cc of ns given after his vanco infused. pain improved and he is currently fed and resting well with a mean of 68 for his bp.
[2020-01-22] MEDS: budesonide 0.5 mg/2 mL Neb INHALATION (20:11)
[2020-01-22 20:35] LABS: Glucose Point of Care 254 mg/dL (70-110)
[2020-01-22] MEDS: enoxaparin 60 mg/0.6 mL Syringe SUBCUT (20:37)
[2020-01-22] MEDS: lipase-protease-amylase Capsule 1 EACH PO (20:37)
[2020-01-22 21:05] LABS: LDH Pleural Fluid 2351 U/L; Mononuclear %, Pleural Fluid 30 %; Mononuclear, Pleural Fluid # 0.321 10^3/uL; PATH Referral YES; Polynuclear Cells, Pleural # 0.765 10^3/uL; Polynuclear Cells, Pleural % 70 %; Total Protein Pleural Fluid 3.6 g/dL
[2020-01-22 21:06] LABS: Appearance, Pleural Fluid CLOUDY (CLEAR); Color, Pleural Fluid Red (Pale Yellow)
[2020-01-22 21:28] LABS: PATH Referal YES
[2020-01-23] VITALS (29 sets, daily range): BP systolic 89–132; BP diastolic 52–83; PULSE 67–83; RESP 12–22; TEMP 36.5–36.9; O2SAT 95–100
[2020-01-23] MEDS: HYDROcodone-acetaminophen 5-325 mg Tablet 1 TAB PO ×2 (02:09→15:37)
[2020-01-23] MEDS: ipratropium-albuterol 3 mL Neb INHALATION ×4 (03:12→20:24)
[2020-01-23] MEDS: morphine 4 mg/mL SDV 1 mL 2 MG IVP ×5 (03:18→21:38)
[2020-01-23 04:01] LABS: Basophils # 0.1 10^3/uL (0.0-0.1); Eosinophils # 0.1 10^3/uL (0.0-0.8); Eosinophils % 1.8 %; Hematocrit 31.3 % (42.0-52.0); Hemoglobin 10.1 g/dL (11.7-16.6); Lymphocytes % 24.9 %; Mean Corpuscular HGB Conc 32.3 g/dL (30.0-36.0); Mean Corpuscular Hemoglobin 32.1 pg (28.0-34.0); Mean Corpuscular Volume 99.4 fL (80-94); Mean Platelet Volume 12.2 fL (7.4-10.4); Monocytes # 0.8 10^3/uL (0.2-0.9); Monocytes % 10.4 %; Neutrophils # 4.9 10^3/uL (1.8-7.7); Neutrophils % 61.6 %; Nucleated Red Blood Cells % 0 %; Platelet Count 143 10^3/cmm (130-400); Red Blood Count 3.15 10^6/uL (4.1-5.3); Red Cell Distribution Width 13.1 % (12.1-15.1); White Blood Count 7.9 10^3/uL (4.0-10.0)
[2020-01-23 04:28] LABS: Alanine Aminotransferase 28 U/L (0-41); Albumin Level 2.9 g/dL (3.5-5.2); Alkaline Phosphatase 175 IU/L (40-130); Anion Gap 13.8 (5-19); Aspartate Amino Transferase 35 U/L (0-40); Blood Urea Nitrogen 7 mg/dL (6-20); Calcium 8.6 mg/dL (8.5-10.5); Carbon Dioxide 33 mmol/L (22-29); Chloride 92 mmol/L (98-107); Globulin 3.4 g/dL (1.3-4.6); Glucose 182 mg/dL (65-115); Osmolality Calculated 280 mOsm/kg (285-295); Potassium 3.8 mmol/L (3.5-5.1); Sodium 135 mmol/L (136-145); Total Bilirubin 0.4 mg/dL (0.15-1.2); Total Protein 6.3 g/dL (6.6-8.7)
[2020-01-23 04:31] LABS: Chol HDL Ratio 2.31 mg/dL (1.0-5.00); Cholesterol 67 mg/dL (0-200); HDL Cholesterol 29 mg/dL (60-100); LDL Cholesterol Calculated 29 mg/dL (50-129); Triglycerides 43 mg/dL (0-150); VLDL Cholestrol Calculation 9 mg/dL (0-30)
[2020-01-23] MEDS: isosorbide mononitrate ER 30 mg Tablet PO (06:06)
[2020-01-23] MEDS: piperacillin-tazobactam 3.375 GM in sodium chloride 0.9% (plus) 50 ML IV ×3 (06:06→21:38)
--- NOTE | 2020-01-23 06:19 | XR_ITS ---
WS: [id number] CHEST XRAY TECHNIQUE: Portable chest. CLINICAL INFORMATION: pleural drain pod#1 COMPARISON: January 21, 2020 FINDINGS: Heart: Normal cardiac silhouette. Aortic calcification. Lungs: Left basilar chest tube in place. No visualized pneumothorax. Previously described likely pleu ral effusion has resolved. Minimal volume loss left lower lobe. Advanced emphysematous changes. Bones: Normal visualized bony structures. XR/XR chest 1V portable [id number] IMPRESSION: Left basilar chest tube in place with resolved pleural effusion
--- NOTE | 2020-01-23 07:00 | PC.NURSE ---
Report given at bedside. [place] drain noted to the left chest wall. unable to visualize the incision site due to dressing. skin tears noted to the left upper arm and right lower leg. decub noted to coccyx. IV to left forearm. O2 at 2l nc. offered a mask to the patient at this time for infection prevention patient denied need for mask at this time.
--- NOTE | 2020-01-23 07:01 | P.PN_ITS ---
Subjective Subjective: Interval history: POD #1 status post left pleural drain placement. Uneventful night. Vitals/I&O/Wt Last Vital Signs Temp 98.5 F 01/23/20 04:00 Pulse 70 01/23/20 06:00 Resp 13 01/23/20 06:00 BP 132/83 01/23/20 06:00 Pulse Ox 100 01/23/20 06:00 01/22/20 01/23/20 01/23/20 22:59 06:59 14:59 Intake Total 1530 / 1680 290 / 1970 Output Total 660 / 2910 700 / 3610 Balance 870 / -1230 -410 / -1640 Weight last 48 hrs Weight 140 lb Physical Exam Chest: COMMONS NORMALS: normal inspection of the chest (Drain remains in good position. No leak from insertion site.) Data : 01/23/20 03:07 01/23/20 03:07 Micro: Microbiology 01/22/20 19:51 Gram Stain - Final Pleural Fluid 01/21/20 20:20 Blood Culture - Preliminary Blood NEGATIVE TO DATE 01/21/20 18:00 Blood Culture - Preliminary Blood NEGATIVE TO DATE 01/22/20 10:00 MRSA Culture - Final Nose 01/21/20 20:07 Gram Stain - Final Sputum - Expectorated Sputum 01/21/20 19:37 Legionella Urinary Antigen - Final Urine,Clean Catch A&P Assessment and plan (1) Loculated pleural effusion: POD #1 left pleural drain placement for loculated pleural effusion. 600 cc recovered from initial drainage This morning's x-ray reveals resolution of the opacification in the left lateral lower hemithorax. Nice drain placement. Plan: Recommend daily aspiration of pleural drain. I would leave drain in place as long as there is substantial fluid recovery. Status: Acute Attestations Medical Necessity Statement*: Loculated pleural effusion status post drainage Time Spent in Patient Care: less than 15 minutes Coding Level of Care Code Acute Customer Quality Specialist for Edu Fwd Exam Problem Focused Diagnoses Loculated pleural effusion J90
[2020-01-23 07:19] LABS: Glucose Point of Care 242 mg/dL (70-110)
[2020-01-23] MEDS: enoxaparin 60 mg/0.6 mL Syringe SUBCUT ×2 (07:32→20:53)
[2020-01-23] MEDS: budesonide 0.5 mg/2 mL Neb INHALATION ×2 (08:20→20:24)
[2020-01-23] MEDS: clopidogrel 75 mg Tablet PO (08:37)
[2020-01-23] MEDS: carvedilol 3.125 mg Tablet PO ×2 (08:37→17:15)
[2020-01-23] MEDS: thiamine 100 mg Tablet PO (08:37)
[2020-01-23] MEDS: CLONazepam 0.5 mg Tablet PO (08:37)
[2020-01-23] MEDS: folic acid 1 mg Tablet PO (08:37)
[2020-01-23] MEDS: lipase-protease-amylase Capsule 1 EACH PO ×3 (08:37→20:53)
[2020-01-23] MEDS: tamsulosin 0.4 mg Capsule PO (08:37)
[2020-01-23] MEDS: sertraline 50 mg Tablet PO (08:37)
[2020-01-23] MEDS: pantoprazole DR 40 mg Tablet PO (08:38)
[2020-01-23] MEDS: aspirin 81 mg EC Tablet PO (08:38)
[2020-01-23] MEDS: atorvastatin 40 mg Tablet PO (08:38)
[2020-01-23 11:19] LABS: Glucose Point of Care 230 mg/dL (70-110)
[2020-01-23] MEDS: ALPRAZolam 0.5 mg Tablet PO (11:28)
--- NOTE | 2020-01-23 12:26 | ANE.PACU2 ---
Inpatient post-anesthesia follow up: Airway intact: Yes Vital signs: Temperature 97.7 F Pulse Rate [Monito r] 77 Pulse Rate 78 Respiratory Rate 13 Blood Pressure [Ri ght Arm] 103/70 Blood Pressure 115/72 Pulse Oximetry 96 Oxygen Delivery Me thod [ Nasal Cannula Current Rate & Del leonor] Oxygen Delivery Me thod Nasal Cannula Oxygen Flow Rate [ Current Rate 2 & Delivery] Oxygen Flow Rate 2 Fraction of Inspir ed Oxygen Hydration adequate: Yes Nausea and vomiting: No Pain level: 8 Mental status: Baseline
--- NOTE | 2020-01-23 12:31 | USCV_ITS ---
Miguel Kuhn Age: 54 Gender: M : 1965 Exam Date: 01/23/2020 12:50 Ordering Phys: Job Freeman MD Technologist: Moise Nuñez Exam Location: [facility] Indication: EF BP: 109 / 78 HR: 78 Rhythm: Sinus Technical Quality: Fair MEASUREMENTS (Male / Female) Normal Values 2D ECHO LV Diastolic Diameter PLAX 4.0 cm 4.2 - 5.9 / 3.9 - 5.3 cm LV Systolic Diameter PLAX 2.5 cm IVS Diastolic Thickness 1.6 cm 0.6 - 1.0 / 0.6 - 0.9 cm IVS Systolic Thickness 2.0 cm LVPW Diastolic Thickness 1.2 cm 0.6 - 1.0 / 0.6 - 0.9 cm LVPW Systolic Thickness 1.8 cm LVOT Diameter 2.0 cm LV Ejection Fraction 2D Teich 69.2 % LV Ejection Fraction MOD 2C 75.6 % LV Ejection Fraction 2C AL 75.8 % LA Diameter 3.9 cm LA Width 4.0 cm LA Height 3.4 cm RA Width 3.4 cm RA Height 3.8 cm M-MODE Aortic Annulus Diameter 3.0 cm LA Ao Ratio MM 1.3 MV E Point Septal Separation 1.1 cm DOPPLER AV Peak Velocity 186.0 cm/s LVOT Peak Velocity 82.0 cm/s AV Area Cont Eq vti 1.2 cm squared AV Area Cont Eq pk 1.4 cm squared MV Area PHT 5.0 cm squared Mitral E to A Ratio 0.8 MV E' Velocity 7.0 cm/s Mitral E to MV E' Ratio 7.9 Mitral E to LV E' Lateral Ratio 6.1 Mitral E to LV E' Septal Ratio 11.5 TR Peak Velocity 96.0 cm/s TR Peak Gradient 3.7 mmHg TV Peak E Velocity 64.0 cm/s PV Peak Velocity 116.0 cm/s FINDINGS Left Ventricle Normal left ventricular cavity size. Moderate left ventricular hypertrophy. Normal left ventricular systolic function. No regional wall motion abnormalities. Left ventricular ejection fraction is estimated at 55 %. Right Ventricle Normal right ventricular size and systolic function. Right Atrium The right atrium is normal in size. Left Atrium The left atrium is normal in size. Mitral Valve Structurally normal mitral valve. Aortic Valve Structurally normal trileaflet aortic valve. Mild aortic valve calcification. Aortic valve sclerosis without stenosis. Moderate aortic valve regurgitation. Tricuspid Valve Structurally normal tricuspid valve. Pulmonic Valve Pulmonic valve not well visualized. Pericardium There is a small circumferential hemodynamically insignificant pericardial effusion Aorta Normal ascending aorta dimension. CONCLUSIONS Normal left ventricular cavity size. Moderate left ventricular hypertrophy. Normal left ventricular systolic function. No regional wall motion abnormalities. Left ventricular ejection fraction is estimated at 55 %. Structurally normal trileaflet aortic valve. Mild aortic valve calcification. Aortic valve sclerosis without stenosis. Moderate aortic valve regurgitation. There is a small circumferential hemodynamically insignificant pericardial effusion. From the previous echo dictated 02/16/2019, the left ventricular function is now lower limit of normal. Otherwise, there has been no change. Dr. Lele Garcia MD (Electronically Signed) Final Date: 24 January 2020 09:05 S
--- NOTE | 2020-01-23 12:34 | PM.PN ---
Subjective Subjective: Interval history: Patient admits to some chest pressure otherwise denies what he was feeling before. Shortness of breath is improved. He status post left side drainage of pleuritic fluid Medications: Reviewed: Yes Vitals/I&O/Wt Last Vital Signs Temp 97.7 F 01/23/20 10:00 Pulse 78 01/23/20 10:00 Resp 14 01/23/20 12:27 BP 115/72 01/23/20 10:00 Pulse Ox 96 01/23/20 10:00 01/22/20 01/23/20 01/23/20 22:59 06:59 14:59 Intake Total 1530 / 1680 290 / 1970 Output Total 660 / 2910 700 / 3610 550 / 550 Balance 870 / -1230 -410 / -1640 -550 / -550 Weight last 48 hrs Weight 140 lb Physical Exam Narrative: EXAM NARRATIVE: GENERAL: Patient is alert, awake and oriented x3. Patient appears to be cachectic and weak NECK: No jugular vein distension. HEENT: No cyanosis. No icterus. No pallor. HEART: Regular S1 and S2. No murmur, rub or gallop. LUNGS: Clear to auscultate bilaterally. ABDOMEN: Soft, nontender and nondistended. Positive bowel sounds. No guarding, rebound or tenderness. CENTRAL NERVOUS SYSTEM: Grossly nonfocal. EXTREMITIES: Lower extremities without edema bilaterally. Data : 01/23/20 03:07 01/23/20 03:07 Micro: Microbiology 01/21/20 20:07 Gram Stain - Final Sputum - Expectorated Sputum Sputum Culture - Preliminary 01/22/20 19:51 Gram Stain - Final Pleural Fluid 01/21/20 20:20 Blood Culture - Preliminary Blood NEGATIVE TO DATE 01/21/20 18:00 Blood Culture - Preliminary Blood NEGATIVE TO DATE 01/22/20 10:00 MRSA Culture - Final Nose A&P Assessment and plan (1) Loculated pleural effusion: Status post thoracocentesis. Continue antibiotics Status: Acute (2) NSTEMI (non-ST elevated myocardial infarction): Patient had angiogram performed in month of October at [facility] RCA was stented in the middle patient was known to have chronically occluded circumflex, LAD has luminal irregularity. At this point we will continue to optimize medicine and see how he does if he still has chest pain I may will ask for angiogram Status: Acute (3) CHF (congestive heart failure): Well compensated over diuresed continue to hold diuretic Status: Chronic Qualifiers: Heart failure type: systolic Heart failure chronicity: acute Qualified Code(s): I50.21 - Acute systolic (congestive) heart failure Attestations Medical Necessity Statement*: Require continuation of hospitalization for above defined care Coding Level of Care Code Established Pt Acute Occupational Therapist Home Based for g Fwd Patient Type Established History Expanded Problem Focused Exam Expanded Problem Focused Medical Decision Making Moderate Complexity Diagnoses Loculated pleural effusion J90 NSTEMI (non-ST elevated myocardial infarction) I21.4 CHF (congestive heart failure) I50.21 Heart failure type: systolic Heart failure chronicity: acute
--- NOTE | 2020-01-23 12:52 | PC.NURSE ---
assessment reviewed by Serenity BURTON
[2020-01-23 14:26] LABS: Vancomycin Trough 22.6 ug/mL (10-15)
--- NOTE | 2020-01-23 15:44 | PC.NURSE ---
Report received from Roya Ruiz from ICU on patient. Patient arrived to CSU at 1520. Patient is alert and orientated and hooked up to telemetry. Patient is resting in semi fowlers position at this time, pain reported at a 9 on a 0-10 pain scale and PRN pain medication given per orders. Continue care at this time.
[2020-01-23 16:24] LABS: Glucose Point of Care 156 mg/dL (70-110)
--- NOTE | 2020-01-23 19:56 | PM.PN ---
Subjective Subjective: Interval history: No acute events overnight. Last 24 hours patient had chest tube placement which he tolerated well. 600 cc of drain. Today morning he states overnight he had minimal central chest pain. At present he is complaining of pain in the left side where the pigtail is present. He denies of any nausea, vomiting, headache, palpitations. Vitals/I&O/Wt Last Vital Signs Temp 98.4 F 01/23/20 19:12 Pulse 80 01/23/20 19:12 Resp 22 H 01/23/20 19:12 BP 100/62 01/23/20 19:12 Pulse Ox 98 01/23/20 19:12 01/23/20 01/23/20 01/23/20 06:59 14:59 22:59 Intake Total 290 / 1970 530 / 530 240 / 770 Output Total 700 / 3610 1055 / 1055 300 / 1355 Balance -410 / -1640 -525 / -525 -60 / -585 Physical Exam Narrative: EXAM NARRATIVE: General: No acute distress, AO x3, thin, frail HEENT: PERRLA, pupils bilaterally equal and reactive Chest: Normal vesicular breath sounds, no added sounds, equal good air entry bilaterally, better air entry in the left nasal middle zone CVS: S1-S2 regular, no murmurs, no tachycardia, no gallops, no rubs Abdomen: Soft, nontender, no organomegaly, bowel sounds present Neuro: No focal deficits, no facial deformity, AO x3, power 5/5 in all limbs Data : 01/23/20 03:07 01/23/20 03:07 Micro: Microbiology 01/21/20 20:07 Gram Stain - Final Sputum - Expectorated Sputum Sputum Culture - Preliminary 01/22/20 19:51 Gram Stain - Final Pleural Fluid 01/21/20 20:20 Blood Culture - Preliminary Blood NEGATIVE TO DATE 01/21/20 18:00 Blood Culture - Preliminary Blood NEGATIVE TO DATE 01/22/20 10:00 MRSA Culture - Final Nose A&P Assessment and plan (1) CAD (coronary artery disease): Status: Chronic Qualifiers: Coronary Disease-Associated Artery/Lesion type: [place] artery [place] vs. transplanted heart: [place] heart Associated angina: with stable angina Qualified Code(s): I25.118 - Atherosclerotic heart disease of [place] coronary artery with other forms of angina pectoris (2) NSTEMI (non-ST elevated myocardial infarction): Status: Acute (3) Loculated pleural effusion: Status: Acute (4) CHF (congestive heart failure): Status: Chronic Qualifiers: Heart failure type: systolic Heart failure chronicity: acute Qualified Code(s): I50.21 - Acute systolic (congestive) heart failure (5) Type 2 diabetes mellitus: Status: Chronic Qualifiers: Diabetes mellitus meterman insulin use: with meterman use Diabetes mellitus complication status: with other specified complication Qualified Code(s): E11.69 - Type 2 diabetes mellitus with other specified complication; Z79.4 - meterman (current) use of 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 Status: Chronic (9) GERD (gastroesophageal reflux disease): Status: Chronic Qualifiers: Esophagitis presence: without esophagitis Qualified Code(s): K21.9 - Gastro-esophageal reflux disease without esophagitis Additional A&P Information Non-ST segment elevation CT/unstable angina: Recent history of PCI to possibly LAD at [facility] 2 months ago. Patient got full dose aspirin and therapeutic Lovenox last night. Repeat troponin yesterday in the morning went up to 200 again. Case discussed with Dr. Tyalor. Documents from [facility] appreciated. Patient had a PTCA to mid RCA. 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 As patient's chest pain is typical along with history of smoking along with missing some of his medications recently concern of a cardiac event is high. We will keep patient n.p.o. after midnight and proceed for Lexiscan stress test tomorrow morning. For now continue with aspirin, statin, Plavix, Imdur, carvedilol, lisinopril. Continue with full dose Lovenox. Continue with Nitropaste. No echocardiogram in the documents. Will do echocardiogram to evaluate for EF and regional wall motion abnormality. Appreciate Dr. Taylor's recommendations. Loculated left-sided pleural effusion: Patient underwent pigtail insertion yesterday which he tolerated well. 600 cc was drained. Chest x-ray today morning shows resolution of pleural effusion. On review of pleural fluid analysis less likely empyema because of high pH and his glucose is normal. Lites criteria can concerning with exudative effusion based on high LDH and pleural to serum protein ratio. For now we will continue with vancomycin and Zosyn and await the pleural fluid Gram stain and culture results. We will also await for pathology. CT chest negative for any sign of malignancy or lymphadenopathy. Congestive heart failure without acute decompensation As per previous echo ejection fraction is 40% No active decompensated For now we will continue with Lasix 40 mg IV daily. Strict input output charting, daily weights. Type 2 diabetes: cardiac carb consistent diet. Insulin sliding scale at mild protocol. Patient is a 16 units of insulin since yesterday. Hold oral hypoglycemic. New onset macrocytic anemia: Hemoglobin stable. No active mopped assist, hematemesis. Vitamin B12, folate levels appreciated and within normal limits. Continue with oral thiamine and folic acid. GERD: Continue Protonix Patient is a current smoker, smokes 5 to 6 cigarettes a day Counseled on smoking cessation Full code Lives with his father, his brother lives nearby Carb consistent cardiac diet for now, n.p.o. after midnight Holding therapeutic Lovenox in anticipation of intervention Can transfer patient to cardiac stepdown unit. Attestations Medical Necessity Statement*: Loculated pericardial effusion, NSTEMI Time Spent in Patient Care: Greater than 35 minutes (>than 50% of time spent in counselling and/or direct pt care on unit). 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 transplanted heart: [place] heart Associated angina: with stable angina NSTEMI (non-ST elevated myocardial infarction) I21.4 Loculated pleural effusion J90 CHF (congestive heart failure) I50.21 Heart failure type: systolic Heart failure chronicity: acute Type 2 diabetes mellitus E11.69; Z79.4 Diabetes mellitus meterman insulin use: with meterman use Diabetes mellitus complication status: with other specified complication Macrocytic anemia D53.9 Chronic pancreatitis K86.1 LIZZIE (generalized anxiety disorder) F41.1 GERD (gastroesophageal reflux disease) K21.9 Esophagitis presence: without esophagitis
--- NOTE | 2020-01-23 20:43 | PC.NURSE ---
BEGINING OF SHIFT ASSESSMENT: Pt resting in bed without any complaints. Skin assessment completed and noted to have pressure injurys on ankle and coccyx. Dressings maintained as they are clean, dry, and intact. Pt states he has pain and would like pain medications soon and would like for this RN to stay on top of pain and anxiety medicine. Discussed turning with patient and explained that staff would remind him throughout the shift. Pt verbalized understanding. Repositioned to right side at this time. Snack given to patient. Tirso drain to left upper chest, clamped. Dressing maintained at this time. Respiratory at bedside performing tx. No further needs at this time. Awaiting medications from pharmacy.
[2020-01-23 20:45] LABS: Glucose Point of Care 108 mg/dL (70-110)
[2020-01-23] MEDS: vancomycin 1,000 MG in sodium chloride 0.9% 250 ML 250 MG IV (20:53)
[2020-01-23] MEDS: ondansetron 2 mg/ML SDV 2 mL 4 MG IVP (21:38)
[2020-01-24] VITALS (16 sets, daily range): BP systolic 106–139; BP diastolic 65–85; PULSE 76–90; RESP 16–22; TEMP 36.6–37.2; O2SAT 93–98
[2020-01-24] MEDS: morphine 4 mg/mL SDV 1 mL 2 MG IVP ×4 (02:46→19:40)
[2020-01-24] MEDS: ipratropium-albuterol 3 mL Neb INHALATION ×3 (02:54→20:17)
[2020-01-24 04:51] LABS: Basophils # 0.1 10^3/uL (0.0-0.1); Basophils % 0.9 %; Eosinophils # 0.1 10^3/uL (0.0-0.8); Eosinophils % 1.9 %; Hematocrit 29.8 % (42.0-52.0); Hemoglobin 9.6 g/dL (11.7-16.6); Lymphocytes # 1.9 10^3/uL (0.8-4.8); Lymphocytes % 33.2 %; Mean Corpuscular HGB Conc 32.2 g/dL (30.0-36.0); Mean Corpuscular Hemoglobin 31.4 pg (28.0-34.0); Mean Corpuscular Volume 97.4 fL (80-94); Mean Platelet Volume 12.9 fL (7.4-10.4); Monocytes # 0.6 10^3/uL (0.2-0.9); Monocytes % 11.1 %; Neutrophils # 3.1 10^3/uL (1.8-7.7); Neutrophils % 52.7 %; Nucleated Red Blood Cells % 0 %; Platelet Count 118 10^3/cmm (130-400); Red Blood Count 3.06 10^6/uL (4.1-5.3); Red Cell Distribution Width 13.1 % (12.1-15.1); White Blood Count 5.8 10^3/uL (4.0-10.0)
[2020-01-24 05:08] LABS: Alanine Aminotransferase 34 U/L (0-41); Alkaline Phosphatase 181 IU/L (40-130); Anion Gap 13.6 (5-19); Aspartate Amino Transferase 65 U/L (0-40); Blood Urea Nitrogen 8 mg/dL (6-20); Calcium 8.7 mg/dL (8.5-10.5); Carbon Dioxide 31 mmol/L (22-29); Chloride 93 mmol/L (98-107); Globulin 3.2 g/dL (1.3-4.6); Glomerular Filtration Rate 87.3 mL/min (90-130); Glucose 265 mg/dL (65-115); Osmolality Calculated 281 mOsm/kg (285-295); Potassium 4.6 mmol/L (3.5-5.1); Sodium 133 mmol/L (136-145); Total Bilirubin 0.2 mg/dL (0.15-1.2); Total Protein 6.2 g/dL (6.6-8.7)
--- NOTE | 2020-01-24 06:00 | ECG_ITS ---
[facility] Test Date: 2020-01-24 Pat Name: Miguel Kuhn Department: Room: 106 Gender: Male Tool Maker: Marylu Rivas : 1965 Requested By: Job Freeman Order Number: [id number] Delgado MD: Sandro Taylor M.D. Interpretive Statements NAME OF STUDY: LEXISCAN SESTAMIBI STRESS TEST INDICATION: Chest Pain, NOTE: Please note that this is the electrocardiogram portion of the Lexiscan/Sestamibi stress test. The perfusion scan will be documented separately. DATA: Baseline heart rate was 80 beats per minute. Baseline blood pressure was 143/69 millimeters of mercury. Target heart rate was 164. Maximum heart rate achieved was 90. which was 54 % of the predicted target heart rate. Maximum blood pressure was millimeters of mercury. The reason for ending the test was completion of the protocol. The patient did not experience any symptoms. ELECTROCARDIOGRAM: BASELINE: Sinus rhythm. Normal axis. Otherwise, no ST-T changes suggestive of ischemia noted. No arrhythmia noted. EXERCISE: After Lexiscan injection, no ST-T changes suggestive of ischemic noted. No arrhythmia noted. CONCLUSION: Please note due to baseline abnormality of the EKG specificity and sensitivity of the EKG portion of LexiScan MIBI stress test will be low 1. EKG not suggestive of ischemia 2. Lexiscan injection unremarkable. 3. Perfusion scan will be documented separately. Electronically Signed On 01-25-2020 17:15:57 CDT by Sandro Taylor M.D. [id number]
[2020-01-24 06:14] LABS: Glucose Point of Care 278 mg/dL (70-110)
[2020-01-24] MEDS: HYDROcodone-acetaminophen 5-325 mg Tablet 1 TAB PO ×4 (06:23→21:50)
[2020-01-24] MEDS: piperacillin-tazobactam 3.375 GM in sodium chloride 0.9% (plus) 50 ML IV ×3 (06:40→21:49)
--- NOTE | 2020-01-24 08:06 | PC.NURSE ---
pt in nuclear cardiac stress test
[2020-01-24] MEDS: regadenoson 0.4 Mg/5 ml Syringe IVP (08:31)
--- NOTE | 2020-01-24 08:51 | PM.PN ---
Subjective Subjective: Interval history: No acute events overnight patient has had a restful night. He denies of having any further chest pains. He still complaining of mild discomfort at the site of [place] drain. Denies any nausea, vomiting, headache, palpitation, dizziness. Medications: Reviewed: Yes Vitals/I&O/Wt Last Vital Signs Temp 98.5 F 01/24/20 03:34 Pulse 90 01/24/20 08:31 Resp 17 01/24/20 03:34 BP 110/65 01/24/20 08:31 Pulse Ox 95 01/24/20 03:34 01/23/20 01/24/20 01/24/20 22:59 06:59 14:59 Intake Total 890 / 1420 550 / 1970 Output Total 500 / 1555 1925 / 3480 Balance 390 / -135 -1375 / -1510 Physical Exam Narrative: EXAM NARRATIVE: General: No acute distress, AO x3, thin, frail HEENT: PERRLA, pupils bilaterally equal and reactive Chest: Normal vesicular breath sounds, no added sounds, equal good air entry bilaterally, better air entry in the left nasal middle zone CVS: S1-S2 regular, no murmurs, no tachycardia, no gallops, no rubs Abdomen: Soft, nontender, no organomegaly, bowel sounds present Neuro: No focal deficits, no facial deformity, AO x3, power 5/5 in all limbs Data : 01/24/20 03:28 01/24/20 03:28 Micro: Microbiology 01/21/20 20:07 Gram Stain - Final Sputum - Expectorated Sputum Sputum Culture - Preliminary A&P Assessment and plan (1) CAD (coronary artery disease): Status: Chronic Qualifiers: Associated angina: with stable angina Coronary Disease-Associated Artery/Lesion type: [place] artery [place] vs. transplanted heart: [place] heart Qualified Code(s): I25.118 - Atherosclerotic heart disease of [place] coronary artery with other forms of angina pectoris (2) NSTEMI (non-ST elevated myocardial infarction): Status: Acute (3) Loculated pleural effusion: Status: Acute (4) CHF (congestive heart failure): Status: Chronic Qualifiers: Heart failure chronicity: acute Heart failure type: systolic Qualified Code(s): I50.21 - Acute systolic (congestive) heart failure (5) Type 2 diabetes mellitus: Status: Chronic Qualifiers: Diabetes mellitus complication status: with other specified complication Diabetes mellitus nursing home insulin use: with nursing home use Qualified Code(s): E11.69 - Type 2 diabetes mellitus with other specified complication; 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 Status: Chronic (9) GERD (gastroesophageal reflux disease): Status: Chronic Qualifiers: Esophagitis presence: without esophagitis Qualified Code(s): K21.9 - Gastro-esophageal reflux disease without esophagitis Additional A&P Information Non-ST segment elevation [place]/unstable angina: Recent history of PCI to possibly LAD at [facility] 2 months ago. Patient got full dose aspirin and therapeutic Lovenox last night. Repeat troponin yesterday in the morning went up to 200 again. Case discussed with Dr. Taylor. Documents from [facility] appreciated. Patient had a PTCA to mid RCA. 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 As patient's chest pain is typical along with history of smoking along with missing some of his medications recently concern of a cardiac event is high. Patient getting Lexiscan today. We will follow-up with results. For now continue with aspirin, statin, Plavix, Imdur, carvedilol, lisinopril. Continue with full dose Lovenox. Day 4 today. Continue with Nitropaste. Echocardiogram done. Suggestive of EF 55% with no regional wall motion abnormality, sclerosed aortic valve, moderate aortic regurgitation. Appreciate Dr. Taylor's recommendations. Loculated left-sided pleural effusion: Patient underwent pigtail insertion yesterday which he tolerated well. 600 cc was drained. Chest x-ray today morning shows resolution of pleural effusion. On review of pleural fluid analysis suggestive of exudative. Renal panel positive high pH and normal glucose. As per the Lights criteria depending on high LDH will have to rule out causes Possible pleural tuberculosis, sarcoidosis, symptomatic effusion emergency given the fact the patient is ill but does not have any history of malignancy in the CT scan of the chest. We will try to add some QuantiFERON, MTB PCR AFB culture to the pleural fluid. We will check CHULA levels. For now we will continue vancomycin and Zosyn and await pleural fluid culture results. If the culture results remain negative will discontinue antibiotics. Patient has remained afebrile for now. Will follow up with Dr. Meneses regarding removal of Tirso drain. Appreciate his recommendation. Stat chest x-ray to look for status of pleural fluid. Congestive heart failure without acute decompensation As per previous echo ejection fraction is 40% No active decompensated Continue to hold diuretics. Strict input output charting, daily weights. Type 2 diabetes: cardiac carb consistent diet. Insulin sliding scale at mild protocol. Patient is a 16 units of insulin since yesterday. Hold oral hypoglycemic. New onset macrocytic anemia: Hemoglobin stable. No active mopped assist, hematemesis. Vitamin B12, folate levels appreciated and within normal limits. Continue with oral thiamine and folic acid. GERD: Continue Protonix Patient is a current smoker, smokes 5 to 6 cigarettes a day Counseled on smoking cessation Full code Lives with his father, his brother lives nearby Carb consistent cardiac diet for now, n.p.o. after midnight Holding therapeutic Lovenox in anticipation of intervention Attestations Medical Necessity Statement*: NSTEMI, loculated pleural effusion, post conversion placement Time Spent in Patient Care: Greater than 35 minutes (>than 50% of time spent in counselling and/or direct pt care on unit). 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 transplanted heart: [place] heart NSTEMI (non-ST elevated myocardial infarction) I21.4 Loculated pleural effusion J90 CHF (congestive heart failure) I50.21 Heart failure chronicity: acute Heart failure type: systolic Type 2 diabetes mellitus E11.69; Z79.4 Diabetes mellitus complication status: with other specified complication Diabetes mellitus assistant terminal manager insulin use: with nursing home use Macrocytic anemia D53.9 Chronic pancreatitis K86.1 LIZZIE (generalized anxiety disorder) F41.1 GERD (gastroesophageal reflux disease) K21.9 Esophagitis presence: without esophagitis
[2020-01-24] MEDS: enoxaparin 60 mg/0.6 mL Syringe SUBCUT ×2 (10:36→19:40)
[2020-01-24] MEDS: tamsulosin 0.4 mg Capsule PO (10:38)
[2020-01-24] MEDS: carvedilol 3.125 mg Tablet PO ×2 (10:38→17:32)
[2020-01-24] MEDS: sertraline 50 mg Tablet PO (10:38)
[2020-01-24] MEDS: atorvastatin 40 mg Tablet PO (10:38)
[2020-01-24] MEDS: potassium chloride ER 10 mEq Tablet 20 MEQ PO (10:39)
[2020-01-24] MEDS: lisinopril 2.5 mg Tablet PO (10:39)
[2020-01-24] MEDS: pantoprazole DR 40 mg Tablet PO (10:39)
[2020-01-24] MEDS: thiamine 100 mg Tablet PO (10:39)
[2020-01-24] MEDS: folic acid 1 mg Tablet PO (10:39)
[2020-01-24] MEDS: aspirin 81 mg EC Tablet PO (10:40)
[2020-01-24] MEDS: clopidogrel 75 mg Tablet PO (10:40)
[2020-01-24] MEDS: ALPRAZolam 0.5 mg Tablet PO ×3 (10:40→21:50)
[2020-01-24] MEDS: lipase-protease-amylase Capsule 1 EACH PO ×3 (10:47→21:50)
--- NOTE | 2020-01-24 10:49 | XRR_ITS ---
PROCEDURE INFORMATION: Exam: XR Chest, 1 View Exam date and time: 01/24/2020 11:09 AM Age: 54 years old Clinical indication: Device placement; Prior surgery; Surgery date: Post-operative (0-2 days); Surgery type: Tirso drain; Patient HX: Cp, SOB TECHNIQUE: Imaging protocol: XR of the chest Views: 1 view. COMPARISON: XR CHEST 01/23/2020 5:12 AM FINDINGS: Tubes, catheters and devices: Left pleural drainage catheter remains in place. Lungs: Minimal volume loss in the left lung base. No new pneumonia or pulmonary edema. Pleural space: No pleural effusion or pneumothorax. Heart/Mediastinum: The cardiac silhouette is not enlarged. The mediastinal contours are normal. Bones/joints: No acute osseous abnormality. XR/XR chest 1V portable [id number] IMPRESSION: No significant change when compared to XR CHEST 01/23/2020 5:12 AM.
[2020-01-24] MEDS: CLONazepam 0.5 mg Tablet PO (10:59)
[2020-01-24] MEDS: vancomycin 1,000 MG in sodium chloride 0.9% 250 ML 250 MG IV ×2 (11:00→19:40)
[2020-01-24 11:28] LABS: Glucose Point of Care 301 mg/dL (70-110)
--- NOTE | 2020-01-24 17:21 | P.PN_ITS ---
Subjective Subjective: Interval history: Denies chest pain. Patient is status post thoracocentesis, stress test shows mild ischemia in inferolateral region Medications: Reviewed: Yes Vitals/I&O/Wt Last Vital Signs Temp 98.1 F 01/24/20 15:50 Pulse 85 01/24/20 15:50 Resp 16 01/24/20 15:50 BP 109/70 01/24/20 15:50 Pulse Ox 95 01/24/20 15:50 01/24/20 01/24/20 01/24/20 06:59 14:59 22:59 Intake Total 550 / 2220 530 / 530 Output Total 1925 / 3480 750 / 750 600 / 1350 Balance -1375 / -1260 -220 / -220 -600 / -820 Physical Exam Narrative: EXAM NARRATIVE: GENERAL: Patient is alert, awake and oriented x3. Patient appears to be cachectic and weak NECK: No jugular vein distension. HEENT: No cyanosis. No icterus. No pallor. HEART: Regular S1 and S2. No murmur, rub or gallop. LUNGS: Clear to auscultate bilaterally. ABDOMEN: Soft, nontender and nondistended. Positive bowel sounds. No guarding, rebound or tenderness. CENTRAL NERVOUS SYSTEM: Grossly nonfocal. EXTREMITIES: Lower extremities without edema bilaterally. Data : 01/24/20 03:28 01/24/20 03:28 Micro: Microbiology 01/22/20 19:51 Gram Stain - Final Pleural Fluid Body Fluid Culture - Preliminary 01/21/20 20:07 Gram Stain - Final Sputum - Expectorated Sputum Sputum Culture - Preliminary A&P Assessment and plan (1) Loculated pleural effusion: Status post thoracocentesis. Continue antibiotics Status: Acute (2) NSTEMI (non-ST elevated myocardial infarction): Patient underwent stress test which showed old myocardial infarction and mild ischemia in inferior inferolateral territory most likely in circumflex area. Patient has history of chronically occluded nondominant circumflex which may is the culprit artery here. Since it is a mild ischemia we will therefore continue to manage him medically with optimization of medicine. Status: Acute (3) CHF (congestive heart failure): Well compensated. Continue holding diuretic Status: Chronic Qualifiers: Heart failure type: systolic Heart failure chronicity: acute Qualified Code(s): I50.21 - Acute systolic (congestive) heart failure Attestations Medical Necessity Statement*: Require continuation hospitalization for above defined care. Coding Level of Care Code Established Pt Acute Dermatology Nurse Practitioner for [facility] Fwd Patient Type Established History Expanded Problem Focused Exam Expanded Problem Focused Medical Decision Making Moderate Complexity Diagnoses Loculated pleural effusion J90 NSTEMI (non-ST elevated myocardial infarction) I21.4 CHF (congestive heart failure) I50.21 Heart failure type: systolic Heart failure chronicity: acute
[2020-01-24 18:52] LABS: Glucose Point of Care 260 mg/dL (70-110)
--- NOTE | 2020-01-24 19:34 | PC.NURSE ---
boris drain in lef lateral chest,drained earlier today using aseptic technique.approx 5 cc ob sanguinous drng received and sent to lab.pt tolerated procedure well.
--- NOTE | 2020-01-24 19:57 | NMCV_ITS ---
NM juan ramon perf SPECT r/s* [id number] Miguel Kuhn Age: 54 Gender: M : 1965 Exam Date: 01/24/2020 07:15 Ordering Phys: Job Freeman MD Technologist: FLAVIO Pabon Exam Location: [facility] Indications: CHEST PAIN, SHORTNESS OF BREATH STRESS TEST Please see separate stress test report in [facility] for full findings IMAGE PROTOCOL Rest/Stress 1 Lexiscan Day Radiopharmaceutical Dose (mCi) Administration Site Administered by Rest: Tc-99m 10.7 IV FLAVIO Giron Sestamibi Stress:Tc-99m 32.6 IV FLAVIO Pabon Sestamisantosh Rest: 24-Jan-2020 60 Discovery 630 Stress: 24-Jan-2020 30 Discovery 630 0.4mg Lexiscan. Images obtained in supine and prone position. SPECT RESULTS Technical Quality: Excellent Raw Data Analysis: Normal Image Corrections: No attenuation or motion correction applied Summed Stress Score: 17 Summed Rest Score: 16 Summed Difference Score: 2 PERFUSION FINDINGS Moderate area of severely decreases uptake in the basal mid and apical inferior, basal and mid inferolateral, apical lateral and LV apex. Subtle area of reversibility was noted in the apical lateral and mid inferolateral regions. FUNCTIONAL RESULTS (calculated via Gated SPECT) Stress Image LV EF (%): 36 Stress EDV (mL):171 TID: 1.06 Stress ESV (mL):110 FUNCTIONAL FINDINGS: LV wall motion analysis revealed diffuse hypokinesia of the left ventricle, more so of the anterior wall, septum and the apex. IMPRESSIONS 1. Myocardial perfusion imaging revealing moderate area of severely decreases uptake in the inferior inferolateral, apical lateral and LV apex with subtle areas of reversibility, suggestive of myocardial scarring in the distribution of the right coronary artery/circumflex artery with very small areas of possible dick-infarction ischemia, mostly in the distribution of the circumflex artery. 2. Moderately diminished LV ejection fraction of 36%. 3. Wall motion normalities as mentioned above. 4. Moderately dilated LV cavity with an end-systolic volume of 110 mL. Compared to the previous study from 10/01/2018, the area of ischemia appears to be very small. Clinical correlation is recommended. Dr Flaquita Knowles MD FACC (Electronically Signed) Final Date: 24 January 2020 14:47 S
[2020-01-24] MEDS: budesonide 0.5 mg/2 mL Neb INHALATION (20:17)
--- NOTE | 2020-01-24 20:57 | PC.NURSE ---
Patient complains of pain. PRN pain medications will be given as ordered when needed. Call light within reach. Will monitor.
--- NOTE | 2020-01-24 21:21 | PC.NURSE ---
Patient was given supplies for bed bath by METER READING CLERK and gave hisself a bed bath.
[2020-01-25] VITALS (16 sets, daily range): BP systolic 91–135; BP diastolic 59–88; PULSE 66–92; RESP 13–19; TEMP 36.5–36.9; O2SAT 96–100
[2020-01-25] MEDS: morphine 4 mg/mL SDV 1 mL 2 MG IVP ×3 (00:39→16:16)
[2020-01-25 00:54] LABS: Glucose Point of Care 203 mg/dL (70-110)
[2020-01-25] MEDS: ipratropium-albuterol 3 mL Neb INHALATION ×3 (03:26→20:49)
[2020-01-25] MEDS: HYDROcodone-acetaminophen 5-325 mg Tablet 1 TAB PO ×2 (05:03→14:22)
[2020-01-25] MEDS: piperacillin-tazobactam 3.375 GM in sodium chloride 0.9% (plus) 50 ML IV ×3 (05:03→23:15)
[2020-01-25] MEDS: isosorbide mononitrate ER 30 mg Tablet PO (05:03)
--- NOTE | 2020-01-25 05:16 | PC.NURSE ---
Patient had uneventful night. Patient is currently complaining of pain and was given PRN pain medication per order. Will monitor.
--- NOTE | 2020-01-25 05:51 | PC.NURSE ---
Nurse went to reassess patient's pain and patient was resting with eyes closed. Patient awoken when nurse entered room and patient stated that pain is better at this time. Will continue to monitor.
--- NOTE | 2020-01-25 05:57 | PC.NURSE ---
Patient hit his call light asking Is it time for my morphine yet? Nurse went to patient's room and patient states his pain level is 8/10. PRN Morphine given per order.
[2020-01-25 06:38] LABS: Glucose Point of Care 291 mg/dL (70-110)
[2020-01-25] MEDS: enoxaparin 60 mg/0.6 mL Syringe SUBCUT (07:12)
[2020-01-25 07:25] LABS: Vancomycin Trough 24.5 ug/mL (10-15)
--- NOTE | 2020-01-25 07:27 | PC.NURSE ---
Pharmacy notified of patient's vanc trough of 24.5. Pharmacy to alter vanc dose.
[2020-01-25] MEDS: carvedilol 3.125 mg Tablet PO ×2 (08:09→17:12)
[2020-01-25] MEDS: lisinopril 2.5 mg Tablet PO (08:09)
[2020-01-25] MEDS: potassium chloride ER 10 mEq Tablet 20 MEQ PO (08:09)
[2020-01-25] MEDS: atorvastatin 40 mg Tablet PO (08:09)
[2020-01-25] MEDS: pantoprazole DR 40 mg Tablet PO (08:09)
[2020-01-25] MEDS: lipase-protease-amylase Capsule 1 EACH PO ×3 (08:09→23:14)
[2020-01-25] MEDS: aspirin 81 mg EC Tablet PO (08:09)
[2020-01-25] MEDS: tamsulosin 0.4 mg Capsule PO (08:10)
[2020-01-25] MEDS: folic acid 1 mg Tablet PO (08:10)
[2020-01-25] MEDS: clopidogrel 75 mg Tablet PO (08:10)
[2020-01-25] MEDS: sertraline 50 mg Tablet PO (08:10)
[2020-01-25] MEDS: thiamine 100 mg Tablet PO (08:10)
--- NOTE | 2020-01-25 09:30 | PC.NURSE ---
Ira Drain Nurse to drain L boris drain per order. When suction initiated, there was a small air leak in the tubing. Therefore, the drain did not have the proper suction. Nurse ensured patient was in safe position with a sterile dressing placed over drain site. Nurse exited room to obtain new drain kit. Dr. Freeman notified. Physician ordered for nurse to not proceed with draining until a repeat chest xray was performed. Nurse to continue to monitor.
--- NOTE | 2020-01-25 09:42 | XRR_ITS ---
PROCEDURE INFORMATION: Exam: XR Chest, 1 View Exam date and time: 01/25/2020 9:58 AM Age: 54 years old Clinical indication: Device placement; Patient HX: Pleural effusion. Post boris drain placement; Additional info: Pleural effusion, post boris drain TECHNIQUE: Imaging protocol: XR of the chest Views: 1 view. COMPARISON: CR XR chest 1V portable [id number] 01/24/2020 11:17 AM FINDINGS: Tubes, catheters and devices: Apparent thoracotomy tube left hemithorax. No visualized pneumothorax. Lungs appear well aerated. Lungs: See Tubes, catheters and devices finding. Pleural space: See Tubes, catheters and devices finding. Heart/Mediastinum: Unremarkable. No cardiomegaly. Bones/joints: Unremarkable. XR/XR chest 1V [id number] IMPRESSION: Apparent thoracotomy tube left hemithorax. No visualized pneumothorax. Lungs appear well aerated.
--- NOTE | 2020-01-25 09:45 | PC.NURSE ---
Physician at bedside. Patient expresses that he needs more medicine to control his anxiety. Dr. Freeman to review medications. Physician states he will order chest x-ray and collaborate with Dr. Meneses regarding when Parlier drain can be pulled.
[2020-01-25] MEDS: ALPRAZolam 0.5 mg Tablet PO ×2 (09:57→23:14)
[2020-01-25] MEDS: budesonide 0.5 mg/2 mL Neb INHALATION ×2 (09:58→20:49)
--- NOTE | 2020-01-25 10:26 | PM.PN ---
Subjective Subjective: Interval history: No acute events overnight. No more chest pain. In last 24 hr he had stress test. Denies any headache, dizziness, N/V, chest pain, palpitations. He continues to complain of mild discomfort at the site of Kennett drain. Patient has remained afebrile, hemoglobin stable. Labs noted. Medications: Reviewed: Yes Vitals/I&O/Wt Last Vital Signs Temp 98.5 F 01/25/20 07:00 Pulse 84 01/25/20 10:06 Resp 17 01/25/20 09:59 BP 110/75 01/25/20 07:00 Pulse Ox 98 01/25/20 09:59 01/24/20 01/25/20 01/25/20 22:59 06:59 14:59 Intake Total 1780 / 2560 300 / 2860 290 / 290 Output Total 1550 / 2300 2250 / 4550 400 / 400 Balance 230 / 260 -1950 / -1690 -110 / -110 Weight last 48 hrs Weight 63.957 kg Physical Exam Narrative: EXAM NARRATIVE: General: No acute distress, AO x3, thin, frail HEENT: PERRLA, pupils bilaterally equal and reactive Chest: Normal vesicular breath sounds, no added sounds, equal good air entry bilaterally, better air entry in the left nasal middle zone CVS: S1-S2 regular, no murmurs, no tachycardia, no gallops, no rubs Abdomen: Soft, nontender, no organomegaly, bowel sounds present Neuro: No focal deficits, no facial deformity, AO x3, power 5/5 in all limbs Data : 01/25/20 11:05 01/25/20 11:50 Micro: Microbiology 01/22/20 19:51 Gram Stain - Final Pleural Fluid Body Fluid Culture - Preliminary 01/21/20 20:07 Gram Stain - Final Sputum - Expectorated Sputum Sputum Culture - Preliminary A&P Assessment and plan (1) CAD (coronary artery disease): Status: Chronic Qualifiers: Associated angina: with stable angina Coronary Disease-Associated Artery/Lesion type: standing rock artery [place] vs. transplanted heart: standing rock heart Qualified Code(s): I25.118 - Atherosclerotic heart disease of standing rock coronary artery with other forms of angina pectoris (2) NSTEMI (non-ST elevated myocardial infarction): Status: Acute (3) Loculated pleural effusion: Status: Acute (4) CHF (congestive heart failure): Status: Chronic Qualifiers: Heart failure chronicity: acute Heart failure type: systolic Qualified Code(s): I50.21 - Acute systolic (congestive) heart failure (5) Type 2 diabetes mellitus: Status: Chronic Qualifiers: Diabetes mellitus complication status: with other specified complication 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 Status: Chronic (9) GERD (gastroesophageal reflux disease): Status: Chronic Qualifiers: Esophagitis presence: without esophagitis Qualified Code(s): K21.9 - Gastro-esophageal reflux disease without esophagitis Additional A&P Information Non-ST segment elevation AL/unstable angina: Recent history of PCI to possibly LAD at [facility] 2 months ago. Patient got full dose aspirin and therapeutic Lovenox last night. Repeat troponin yesterday in the morning went up to 200 again. Case discussed with Dr. Taylor. Documents from [facility] appreciated. Patient had a PTCA to mid RCA. 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 As patient's chest pain is typical along with history of smoking along with missing some of his medications recently concern of a cardiac event is high. Given the results of Lexiscan with minimal ischemia in inferior lateral region which is most likely related to his chronically occluded circumflex along with multiple comorbidities it has been decided to manage him with optimizing his medical management. We will continue with aspirin, Plavix, statin, Imdur, lisinopril. We will change his carvedilol to metoprolol. Patient was apparently taking metoprolol. November 2019. Patient is already had 4 days of Lovenox so we will stop now. Echocardiogram done. Suggestive of EF 55% with no regional wall motion abnormality, sclerosed aortic valve, moderate aortic regurgitation. Appreciate Dr. Taylor's recommendations. Loculated left-sided pleural effusion: Patient underwent pigtail insertion oon 01/21 which he tolerated well. 600 cc was drained. Chest x-ray today morning shows resolution of pleural effusion. On review of pleural fluid analysis suggestive of exudative. Positive high pH and normal glucose. As per the Lights criteria depending on high LDH will have to rule out causes. Possible pleural tuberculosis, sarcoidosis, symptomatic effusion emergency given the fact the patient is ill but does not have any history of malignancy in the CT scan of the chest. Pleural fluid results for QuantiFERON, MTB PCR, AFB culture results, Gram stain for now awaited. If pleural fluid culture results negative remain negative till tomorrow we will stop vancomycin and Zosyn. Patient has remained afebrile. CHULA levels awaited As patient's future x-rays done daily have remained stable we will confirm with Dr. Meneses if Kennett drain can be removed today. N.p.o. for possible Kennett drain removal. Congestive heart failure without acute decompensation As per previous echo ejection fraction is 40% No active decompensated Continue to hold diuretics. Strict input output charting, daily weights. Type 2 diabetes: cardiac carb consistent diet. Insulin sliding scale at mild protocol. Patient is a 16 units of insulin since yesterday. Hold oral hypoglycemic. New onset macrocytic anemia: Hemoglobin stable. No active mopped assist, hematemesis. Vitamin B12, folate levels appreciated and within normal limits. Continue with oral thiamine and folic acid. GERD: Continue Protonix Patient is a current smoker, smokes 5 to 6 cigarettes a day Counseled on smoking cessation Full code Lives with his father, his brother lives nearby Carb consistent cardiac diet. 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 transplanted heart: standing rock heart NSTEMI (non-ST elevated myocardial infarction) I21.4 Loculated pleural effusion J90 CHF (congestive heart failure) I50.21 Heart failure chronicity: acute Heart failure type: systolic Type 2 diabetes mellitus E11.69; Z79.4 Diabetes mellitus complication status: with other specified complication Diabetes mellitus penitentiary insulin use: with penitentiary use Macrocytic anemia D53.9 Chronic pancreatitis K86.1 LIZZIE (generalized anxiety disorder) F41.1 GERD (gastroesophageal reflux disease) K21.9 Esophagitis presence: without esophagitis
[2020-01-25 10:34] LABS: Alanine Aminotransferase 43 U/L (0-41); Albumin Level 3.2 g/dL (3.5-5.2); Alkaline Phosphatase 196 IU/L (40-130); Anion Gap 14.9 (5-19); Aspartate Amino Transferase 62 U/L (0-40); Blood Urea Nitrogen 9 mg/dL (6-20); Calcium 8.7 mg/dL (8.5-10.5); Carbon Dioxide 30 mmol/L (22-29); Chloride 92 mmol/L (98-107); Globulin 3.1 g/dL (1.3-4.6); Glomerular Filtration Rate 116.7 mL/min (90-130); Glucose 272 mg/dL (65-115); Osmolality Calculated 278 mOsm/kg (285-295); Potassium 5.9 mmol/L (3.5-5.1); Sodium 131 mmol/L (136-145); Total Bilirubin 0.3 mg/dL (0.15-1.2); Total Protein 6.3 g/dL (6.6-8.7)
--- NOTE | 2020-01-25 10:48 | P.PN_ITS ---
Subjective Subjective: Interval history: No complaints other than discomfort along the drain site. Minimal output since original placement of the drain. Vitals/I&O/Wt Last Vital Signs Temp 98.5 F 01/25/20 07:00 Pulse 84 01/25/20 10:06 Resp 17 01/25/20 09:59 BP 110/75 01/25/20 07:00 Pulse Ox 98 01/25/20 09:59 01/24/20 01/25/20 01/25/20 22:59 06:59 14:59 Intake Total 1780 / 2560 300 / 2860 290 / 290 Output Total 1550 / 2300 2250 / 4550 400 / 400 Balance 230 / 260 -1950 / -1690 -110 / -110 Weight last 48 hrs Weight 141 lb Data : 01/24/20 03:28 01/25/20 07:10 Micro: Microbiology 01/22/20 19:51 Gram Stain - Final Pleural Fluid Body Fluid Culture - Preliminary 01/21/20 20:07 Gram Stain - Final Sputum - Expectorated Sputum Sputum Culture - Preliminary A&P Assessment and plan (1) Loculated pleural effusion: Postop day #3 status post left pleural drain placement. Apparent resolution of the loculated effusion. Plan: I will plan for drain removal this afternoon in outpatient surgery department. Status: Acute Attestations Medical Necessity Statement*: Postop day #3 status post left pleural drain placement. 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
--- NOTE | 2020-01-25 10:48 | PC.NURSE ---
Potassium on BMP came back at 5.9. Dr. Freeman notified. Physician requests repeat BMP, RBVO. No further intervention at this time.
[2020-01-25 11:25] LABS: Basophils # 0.1 10^3/uL (0.0-0.1); Basophils % 1.2 %; Eosinophils # 0.2 10^3/uL (0.0-0.8); Eosinophils % 3.7 %; Hematocrit 31.7 % (42.0-52.0); Lymphocytes # 2.1 10^3/uL (0.8-4.8); Lymphocytes % 32.6 %; Mean Corpuscular HGB Conc 31.5 g/dL (30.0-36.0); Mean Corpuscular Hemoglobin 32.2 pg (28.0-34.0); Mean Corpuscular Volume 101.9 fL (80-94); Mean Platelet Volume 12.2 fL (7.4-10.4); Monocytes # 0.7 10^3/uL (0.2-0.9); Monocytes % 10.6 %; Neutrophils # 3.4 10^3/uL (1.8-7.7); Neutrophils % 51.4 %; Nucleated Red Blood Cells % 0 %; Platelet Count 132 10^3/cmm (130-400); Red Blood Count 3.11 10^6/uL (4.1-5.3); Red Cell Distribution Width 13.1 % (12.1-15.1); White Blood Count 6.5 10^3/uL (4.0-10.0)
[2020-01-25 11:50] LABS: Glucose Point of Care 175 mg/dL (70-110)
[2020-01-25 12:10] LABS: Angiotensin Converting Enzyme 14 U/L (9-67)
[2020-01-25 12:21] LABS: Blood Urea Nitrogen 9 mg/dL (6-20); Calcium 9.2 mg/dL (8.5-10.5); Carbon Dioxide 32 mmol/L (22-29); Chloride 95 mmol/L (98-107); Glomerular Filtration Rate 116.7 mL/min (90-130); Glucose 154 mg/dL (65-115); Osmolality Calculated 275 mOsm/kg (285-295); Sodium 133 mmol/L (136-145)
[2020-01-25] MEDS: CLONazepam 0.5 mg Tablet PO (12:33)
--- NOTE | 2020-01-25 12:36 | PC.NURSE ---
Nurse called to room. Patient aggitated stating, Can you tell that doctor he's gonna have to just come get this thing out or I'm gonna have to do it. I can't stand this any longer. I'm hungry. The nurse explained the importance of adhering to NPO status prior to surgical procedures. Patient stated, I don't care. I'm hungry. The nurse also explained the health risks of the patient removing the drain himself or leaving with the drain still in place. The patient's only response was, I don't care. I want something to eat. The nurse administered Klonipin to ease patient's anxiety and restlessness. Dr. Freeman notified of patient's response.
--- NOTE | 2020-01-25 12:43 | PC.NURSE ---
Dr. Taylor at bedside. No new interventions at this time.
--- NOTE | 2020-01-25 14:58 | PC.NURSE ---
Patient to PACU at this time. Family notified.
--- NOTE | 2020-01-25 15:28 | SUR.PREOP ---
Patient on monitor for procedure. bp 124/83 hr 86 o2 100% room air rr 18. patient awake and alert. ozzie bahena present in room assiting for left drain removal. 2% lidocain used at site. xeroform dressing applied by . patient tolerated procedure well. patient will be transferred back to room on csu. no additional orders received.
--- NOTE | 2020-01-25 15:33 | PM.OP ---
Operative Report Date of procedure: January 25, 2020 Pre-op Diagnosis: Loculated pleural effusion; status post left pleural drain placement Post-op diagnosis: same Procedure Done: Left pleural drain removal Specimens removed/disposition: Left pleural drain removed intact Pathology: none sent Surgeon: Mitchel Meneses Anesthesia: Local (6 cc 1% lidocaine infiltrated locally) Complications: None Disposition: floor Brief History: 54-year-old gentleman, now 3 days status post left pleural drain placement for loculated left pleural effusion which is now resolved. Minimal drain output. Drain removal has been requested prior to planned discharge. Details risk procedure carefully discussed. Procedure: Mr. Kuhn was in a semi-pak's position. His entire left chest around the drain site was sterilely prepped and draped. Retention suture was removed. 1% lidocaine was infiltrated along the track line from the exit point of the tube more proximally. Blunt dissection with hemostat was utilized to open up the tract as direct in line traction was applied to the tube to release adhesions along the Velcro cuff. Drain was removed intact with minimal difficulty. Only mild discomfort with the drain removal. Breath sounds remain equal bilaterally. Occlusive sterile dressing was applied to the exit site. He tolerated procedure well. He will be returned to the floor in stable condition.
[2020-01-25 16:00] LABS: Quantiferon Mitogen 7.45 IU/mL; Quantiferon Nil 0.01 IU/mL; Quantiferon TB Gold NEGATIVE (NEGATIVE)
[2020-01-25 16:36] LABS: Glucose Point of Care 201 mg/dL (70-110)
[2020-01-25] MEDS: metformin 500 mg Tablet 1000 MG PO (17:12)
[2020-01-25] MEDS: docusate sodium 100 mg Capsule PO (17:12)
[2020-01-25] MEDS: vancomycin 1,000 MG in sodium chloride 0.9% 250 ML 250 MG IV (17:22)
[2020-01-25] MEDS: metoprolol tartrate 50 mg Tablet PO (17:25)
--- NOTE | 2020-01-25 17:34 | P.PN_ITS ---
Subjective Subjective: Interval history: Denies any chest pain. Status post Pepin drain replacement Medications: Reviewed: Yes Vitals/I&O/Wt Last Vital Signs Temp 98.0 F 01/25/20 16:06 Pulse 81 01/25/20 16:06 Resp 16 01/25/20 16:16 BP 135/88 01/25/20 16:06 Pulse Ox 98 01/25/20 16:06 01/25/20 01/25/20 01/25/20 06:59 14:59 22:59 Intake Total 300 / 2860 299.583 / 299.583 40.417 / 340.000 Output Total 2250 / 4550 1000 / 1000 Balance -1950 / -1690 -700.417 / -700.417 40.417 / -660.000 Weight last 48 hrs Weight 141 lb Physical Exam Narrative: EXAM NARRATIVE: GENERAL: Patient is alert, awake and oriented x3. Patient appears to be cachectic and weak NECK: No jugular vein distension. HEENT: No cyanosis. No icterus. No pallor. HEART: Regular S1 and S2. No murmur, rub or gallop. LUNGS: Clear to auscultate bilaterally. ABDOMEN: Soft, nontender and nondistended. Positive bowel sounds. No guarding, rebound or tenderness. CENTRAL NERVOUS SYSTEM: Grossly nonfocal. EXTREMITIES: Lower extremities without edema bilaterally. Data : 01/25/20 11:05 01/25/20 11:50 Micro: Microbiology 01/22/20 19:51 Gram Stain - Final Pleural Fluid Body Fluid Culture - Preliminary 01/21/20 20:07 Gram Stain - Final Sputum - Expectorated Sputum Sputum Culture - Preliminary Pseudomonas species A&P Assessment and plan (1) Loculated pleural effusion: As per surgery. Patient is status post drainage Status: Acute (2) NSTEMI (non-ST elevated myocardial infarction): We recommend continuing optimization of the medicine. Patient does not have significant ischemia on the stress test. Status: Acute (3) CHF (congestive heart failure): Well compensated. Continue current regimen Status: Chronic Qualifiers: Heart failure type: systolic Heart failure chronicity: acute Qualified Code(s): I50.21 - Acute systolic (congestive) heart failure (4) Hypertension: Well-controlled. 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
--- NOTE | 2020-01-25 19:10 | PC.NURSE ---
Dressing changed to left chest with day shift nurse due to saturation. Will monitor site and dressing frequently.
--- NOTE | 2020-01-25 19:59 | PC.NURSE ---
Dr. Mena notified of patient asking for more pain medication, stating that he will leave AMA if he does not get any. Patient has flat affect and does not appear to be in significant distress. 2 mg IV Dialudid ordered x1.
--- NOTE | 2020-01-25 20:32 | PC.NURSE ---
Dr. Mena notified of patient's blood pressure of 79/56. Ordered to hold IV Dilaudid and give IV Toradol. Patient states just give me the Dialudid I won't tell anyone. Just tighten the blood pressure cuff or something.
--- NOTE | 2020-01-25 20:40 | PC.NURSE ---
Dr. Mena notified of patient becoming extremely upset about not being able to receive Dilaudid and wanting to leave.
--- NOTE | 2020-01-25 20:43 | PC.NURSE ---
Dr. Mena came to see patient and explained to him that we might be able to give him Dilaudid later if his blood pressure comes up.
--- NOTE | 2020-01-25 20:56 | PC.NURSE ---
Patient seems calmer since doctor spoke with him. Patient is not longer cussing. Patient is saying, sorry, please and thank you
--- NOTE | 2020-01-25 21:02 | PC.NURSE ---
Dr. Mena notified of having bloody dressing from where boris drain was at times. Ordered to go ahead and give Toradol.
[2020-01-25] MEDS: ketorolac 30 mg/mL INJ 50 MG IVP (21:03)
--- NOTE | 2020-01-25 21:25 | PC.NURSE ---
Dr. Mena notified of blood pressure of 91/63. Ordered okay to go ahead and give Dilaudid and fluid bolus ordered as well.
[2020-01-25] MEDS: HYDROmorphone 1 mg/mL INJ 1 mL 2 MG IVP (21:27)
[2020-01-25] MEDS: lactated ringers 1,000 ML 999 ML IV (21:54)
--- NOTE | 2020-01-25 22:26 | PC.NURSE ---
IV removed from left forearm and new 20g placed in right forearm on first attempt. IV in left forearm was removed due to being in for a long period of time.
[2020-01-25 22:37] LABS: Glucose Point of Care 196 mg/dL (70-110)
--- NOTE | 2020-01-25 23:06 | PC.NURSE ---
Patient was awoken from his sleep to reassess pain level and give nighttime medications. Patient states pain is still 7/10.
[2020-01-26] VITALS (11 sets, daily range): BP systolic 93–130; BP diastolic 50–77; PULSE 66–73; RESP 10–22; TEMP 36.6–36.9; O2SAT 95–99
--- NOTE | 2020-01-26 00:03 | PC.NURSE ---
Bedtime medications were late due to assisting with call lights and confused patients.
[2020-01-26] MEDS: HYDROcodone-acetaminophen 5-325 mg Tablet 1 TAB PO (02:44)
[2020-01-26] MEDS: morphine 4 mg/mL SDV 1 mL 2 MG IVP ×3 (02:45→10:08)
[2020-01-26] MEDS: ipratropium-albuterol 3 mL Neb INHALATION ×2 (04:01→09:16)
--- NOTE | 2020-01-26 04:30 | PC.NURSE ---
Patient is currently resting will eyes closed.
[2020-01-26] MEDS: isosorbide mononitrate ER 30 mg Tablet PO (05:59)
[2020-01-26] MEDS: piperacillin-tazobactam 3.375 GM in sodium chloride 0.9% (plus) 50 ML IV (06:00)
--- NOTE | 2020-01-26 06:14 | PC.NURSE ---
Patient was given PRN Morphine per order. Patient's blood pressure is currently 111/69. Dressing to left chest was changed twice throughout shift and gown was changed twice throughout shift. Will continue to monitor and reassess pain and blood pressure.
[2020-01-26 06:40] LABS: Glucose Point of Care 185 mg/dL (70-110)
--- NOTE | 2020-01-26 06:49 | PC.NURSE ---
Patient is currently resting with eyes closed.
--- NOTE | 2020-01-26 07:55 | PC.NURSE ---
Lovenox administration clarified with Dr. Freeman due to the dressing to the left upper chest wall becoming saturated with blood 3 times overnight. Physician instructed nurse to discontinue Lovenox and apply a pressure dressing to upper left chest wall. Nurse to continue to monitor.
[2020-01-26] MEDS: lipase-protease-amylase Capsule 1 EACH PO (08:43)
[2020-01-26] MEDS: aspirin 81 mg EC Tablet PO (08:44)
[2020-01-26] MEDS: folic acid 1 mg Tablet PO (08:44)
[2020-01-26] MEDS: atorvastatin 40 mg Tablet PO (08:44)
[2020-01-26] MEDS: lisinopril 2.5 mg Tablet PO (08:44)
[2020-01-26] MEDS: metformin 500 mg Tablet 1000 MG PO (08:44)
[2020-01-26] MEDS: pantoprazole DR 40 mg Tablet PO (08:44)
[2020-01-26] MEDS: tamsulosin 0.4 mg Capsule PO (08:45)
[2020-01-26] MEDS: docusate sodium 100 mg Capsule PO (08:45)
[2020-01-26] MEDS: metoprolol tartrate 50 mg Tablet PO (08:45)
[2020-01-26] MEDS: thiamine 100 mg Tablet PO (08:45)
[2020-01-26] MEDS: sertraline 50 mg Tablet PO (08:45)
[2020-01-26] MEDS: budesonide 0.5 mg/2 mL Neb INHALATION (09:16)
--- NOTE | 2020-01-26 09:54 | PC.NURSE ---
Plavix and Potassium administration clarified with Dr. Freeman. Physician gave verbal order for nurse to wait to administer potassium until a BMP is drawn. Physician approved for plavix to administered now.
[2020-01-26] MEDS: clopidogrel 75 mg Tablet PO (10:03)
[2020-01-26] MEDS: vancomycin 1,000 MG in sodium chloride 0.9% 250 ML 250 MG IV (10:11)
--- NOTE | 2020-01-26 10:20 | P.DS_ITS ---
Discharge Providers Date of Admission: 01/21/20 19:42 Date of Discharge: January 26, 2020 Attending Provider at Admission: Sandro Mena MD Attending Provider at Discharge: Job Freeman MD Consults: Cardiology: Dr. Taylor Primary Care Provider: Silvana Nieves MD Diagnoses at Discharge Discharge Diagnosis (1) Loculated pleural effusion: Status: Acute (2) NSTEMI (non-ST elevated myocardial infarction): Status: Acute (3) CHF (congestive heart failure): Status: Chronic Problem details: EF 40% Qualifiers: Heart failure chronicity: acute Heart failure type: systolic Qualified Code(s): I50.21 - Acute systolic (congestive) heart failure (4) Hypertension: Status: Chronic Qualifiers: Hypertension type: essential hypertension Qualified Code(s): I10 - Essential (primary) hypertension Reason for Visit Reason for Visit: cp/sob Hospital Course Discharge Summary: Miguel Kuhn is a 54 year old male history of reduced ejection fraction heart failure, bladder outlet obstruction, recently had PCI at [place] coming in today for lethargy and chest discomfort. Patient is stating that he had a stent placement in his left anterior descending artery 2months ago, he required prolonged hospitalization, he is not sure whether he was diagnosed with pneumonia but he had to go back to the hospital for worsening symptoms of lethargy and chest pain, he was not given any antibiotics, his EKG and troponins were trended and he was discharged home after his second visit. He is stating that at home he did well for a week until few days back when he started experiencing extreme lethargy and fatigue, he did not experience any falls or syncopal events but he thinks his legs are not able to support his weight anymore. He felt nauseous and skipped his medications as well for a day or two, now he is getting more short of breath on exertion and rest, he has not noticed orthopnea or PND, he has not noticed any fever, chills, vomiting. He has chronic dry cough which has not aggravated. He is also experiencing left- sided chest pain which is achy in nature, gets worse on taking deep breaths and is positional. He thinks this pain is not same as the last time when he went to the hospital. He has not noticed any dark stools, hemoptysis or hematemesis. Patient symptoms on admission were thought to be most likely because of NSTEMI. On CT scan done in the ER on admission patient was found to have a large loculated left-sided pleural effusion given recent hospitalization because of pneumonia there was a concern of empyema so cardiothoracic surgery was consulted and patient underwent [place] drain insertion on January 22, 2020. Patient tolerated the procedure well. Postprocedure as patient had minimal drainage and x-ray remained stable [place] drain was removed on January 25, 2020. Fluid study done was consistent with exudates but was not concerning for empyema as patient's pH at pleural fluid was more than 7. Given his severe cachexia, history of alcoholism and smoking there were concerns of possible malignancy, tuberculosis or brain metastases. Cytology of the fluid was negative for malignancy. Patient's fluid culture has remained negative. For possible C pneumonic effusion patient has already received broad-spectrum antibiotic with vancomycin and Zosyn for 5 days. Patient's pleural fluid study for MTB PCR, AFB cultures, final Gram stain and cultures are pending. Sputum culture done on admission was positive for Pseudomonas for which he is been discharged on levofloxacin for 5 more days. For possible NSTEMI cardiology was consulted. Patient was started on therapeutic Lovenox. There is a concern for NSTEMI because patient was having typical chest pain along with history of missing few medications just prior to the presentation because of chest pain and nausea. His documentation from recent PCI done at [facility] were reviewed. 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 Patient underwent stress test which revealed moderate area of severe decrease uptake in inferior, inferior lateral, apical lateral and LV apex with subtle areas of reversibility suggestive of myocardial scarring in distribution of right coronary/circumflex artery with small areas of possible dick-infarct ischemia. Echocardiogram was done which revealed an EF of 55% with aortic sclerosis without stenosis and moderate AI. Patient's antianginal medications were optimized. Patient will be discharged hemodynamically stable condition with advised to follow-up with his primary care provider in 2 weeks and data warehouse specialist in 4 more weeks. Physical Exam Narrative: EXAM NARRATIVE: General: No acute distress, AO x3, thin, frail HEENT: PERRLA, pupils bilaterally equal and reactive Chest: Normal vesicular breath sounds, no added sounds, equal good air entry bilaterally, better air entry in the left nasal middle zone CVS: S1-S2 regular, no murmurs, no tachycardia, no gallops, no rubs Abdomen: Soft, nontender, no organomegaly, bowel sounds present Neuro: No focal deficits, no facial deformity, AO x3, power 5/5 in all limbs Discharge Data Data Completed and Pending: Completed Studies During Hospitalization Category Date Time Status CT angio chest PE protcl [id number] Stat Cat Scan 01/21/20 19:38 Completed Sestamibi Stress Test Request Routi ne Exams 01/24/20 06:00 Completed XR chest 1V [id number] Routine Exams 01/25/20 09:42 Completed XR chest 1V dodie ble [id number] Routine Exams 01/23/20 06:19 Completed XR chest 1V dodie ble [id number] Routine Exams 01/24/20 10:49 Completed XR chest 1V dodie ble [id number] Stat Exams 01/21/20 18:12 Completed NM juan ramon perf SPECT r/s* [id number] Routin e Nuc Med 01/24/20 19:57 Completed CV echo complete* [id number] Routine Ultrasound 01/23/20 12:31 Completed Pending at discharge Category Date Time Status Sestamibi Stress Test Request Routi ne Exams 01/23/20 19:57 Stop Req Blood Culture Sta t Lab 01/21/20 20:20 Results Body Fluid Cultur e & GS Stat Lab 01/22/20 19:51 Results Immunochemical Fe sabra OCB Routine Lab 01/22/20 00:58 Ordered Miscellaneous Nely t Routine Lab 01/22/20 19:51 Received Miscellaneous Nely t Routine Lab 01/23/20 22:33 Ordered Mycobacteria, Cul ture w/Fluor Stat Lab 01/24/20 13:05 Results Sputum Culture an d Gram Stain Stat Lab 01/21/20 20:07 Results Cytology [PTH] Ro utine Pth 01/22/20 14:06 Received Labs from last 24 hours 01/26/20 01/25/20 01/25/20 06:22 20:56 16:32 WBC Corrected WBC RBC Hgb Hct MCV MCH MCHC RDW Plt Count MPV Gran % Neut % (Auto) Lymph % (Auto) [place] % (Auto) Eos % (Auto) Baso % (Auto) Neut # (Auto) Lymph # (Auto) [place] # (Auto) Eos # (Auto) Baso # (Auto) Absolute Gran (aut o) Nucleated RBC % (a uto) Nucleated RBCs # Sodium Potassium Chloride Carbon Dioxide Anion Gap BUN Creatinine GFR Calculation Glucose POC Glucose 185 196 201 Calculated Osmolal ity Calcium Total Bilirubin AST ALT Alkaline Phosphata se Total Protein Albumin Globulin Angiotensin Conver t Enz TB (QFT) Gold In T ube TB Test (QFT) Nil TB Test (QFT) Ran gen TB Test Mitogen - Nil TB Test TB - Nil 01/25/20 01/25/20 01/25/20 11:50 11:05 11:03 WBC 6.5 Corrected WBC RBC 3.11 L Hgb 10.0 L Hct 31.7 L MCV 101.9 H MCH 32.2 MCHC 31.5 RDW 13.1 Plt Count 132 MPV 12.2 H Gran % Neut % (Auto) 51.4 Lymph % (Auto) 32.6 [place] % (Auto) 10.6 Eos % (Auto) 3.7 Baso % (Auto) 1.2 Neut # (Auto) 3.4 Lymph # (Auto) 2.1 [place] # (Auto) 0.7 Eos # (Auto) 0.2 Baso # (Auto) 0.1 Absolute Gran (aut o) Nucleated RBC % (a uto) 0 Nucleated RBCs # 0.0 Sodium 133 L Potassium 5.0 Chloride 95 L Carbon Dioxide 32 H Anion Gap 11.0 BUN 9 Creatinine 0.7 GFR Calculation 116.7 Glucose 154 H POC Glucose 175 Calculated Osmolal ity 275 L Calcium 9.2 Total Bilirubin AST ALT Alkaline Phosphata se Total Protein Albumin Globulin Angiotensin Conver t Enz TB (QFT) Gold In T ube TB Test (QFT) Nil TB Test (QFT) Ran gen TB Test Mitogen - Nil TB Test TB - Nil 01/25/20 01/25/20 01/24/20 07:10 07:10 14:48 WBC Cancelled Corrected WBC Cancelled RBC Cancelled Hgb Cancelled Hct Cancelled MCV Cancelled MCH Cancelled MCHC Cancelled RDW Cancelled Plt Count Cancelled MPV Cancelled Gran % Cancelled Neut % (Auto) Cancelled Lymph % (Auto) Cancelled [place] % (Auto) Cancelled Eos % (Auto) Cancelled Baso % (Auto) Cancelled Neut # (Auto) Cancelled Lymph # (Auto) Cancelled [place] # (Auto) Cancelled Eos # (Auto) Cancelled Baso # (Auto) Cancelled Absolute Gran (aut o) Cancelled Nucleated RBC % (a uto) Cancelled Nucleated RBCs # Cancelled Sodium 131 L Potassium 5.9 H Chloride 92 L Carbon Dioxide 30 H Anion Gap 14.9 BUN 9 Creatinine 0.7 GFR Calculation 116.7 Glucose 272 H POC Glucose Calculated Osmolal ity 278 L Calcium 8.7 Total Bilirubin 0.3 AST 62 H ALT 43 H Alkaline Phosphata se 196 H Total Protein 6.3 L Albumin 3.2 L Globulin 3.1 Angiotensin Conver t Enz 14 TB (QFT) Gold In T ube TB Test (QFT) Nil TB Test (QFT) Ran gen TB Test Mitogen - Nil TB Test TB - Nil 01/23/20 15:50 WBC Corrected WBC RBC Hgb Hct MCV MCH MCHC RDW Plt Count MPV Gran % Neut % (Auto) Lymph % (Auto) [place] % (Auto) Eos % (Auto) Baso % (Auto) Neut # (Auto) Lymph # (Auto) [place] # (Auto) Eos # (Auto) Baso # (Auto) Absolute Gran (aut o) Nucleated RBC % (a uto) Nucleated RBCs # Sodium Potassium Chloride Carbon Dioxide Anion Gap BUN Creatinine GFR Calculation Glucose POC Glucose Calculated Osmolal ity Calcium Total Bilirubin AST ALT Alkaline Phosphata se Total Protein Albumin Globulin Angiotensin Conver t Enz TB (QFT) Gold In T ube Negative TB Test (QFT) Nil 0.01 TB Test (QFT) Ran gen 7.45 TB Test Mitogen - Nil 0.00 TB Test TB - Nil 0.00 Addt'l Data from Hospital Stay: Echocardiogram January 24, 2020 CONCLUSIONS Normal left ventricular cavity size. Moderate left ventricular hypertrophy. Normal left ventricular systolic function. No regional wall motion abnormalities. Left ventricular ejection fraction is estimated at 55 %. Structurally normal trileaflet aortic valve. Mild aortic valve calcification. Aortic valve sclerosis without stenosis. Moderate aortic valve regurgitation. There is a small circumferential hemodynamically insignificant pericardial effusion. From the previous echo dictated 02/16/2019, the left ventricular function is now lower limit of normal. Otherwise, there has been no change. Lexiscan January 2020: IMPRESSIONS 1. Myocardial perfusion imaging revealing moderate area of severely decreases uptake in the inferior inferolateral, apical lateral and LV apex with subtle areas of reversibility, suggestive of myocardial scarring in the distribution of the right coronary artery/circumflex artery with very small areas of possible dick-infarction ischemia, mostly in the distribution of the circumflex artery. 2. Moderately diminished LV ejection fraction of 36%. 3. Wall motion normalities as mentioned above. 4. Moderately dilated LV cavity with an end-systolic volume of 110 mL. Compared to the previous study from 10/01/2018, the area of ischemia appears to be very small. Clinical correlation is recommended. Procedures Performed: [place] drain insertion on January 22, 2020 and removal on January 25, 2020 Vitals: Last Vital Signs Temp 98.5 F 01/26/20 07:20 Pulse 73 01/26/20 09:14 Resp 21 H 01/26/20 10:08 BP 130/77 01/26/20 07:20 Pulse Ox 98 01/26/20 09:14 Discharge Plan Discharge Patient Disposition: Home, Self-Care Condition: Stable Prescriptions: New levofloxacin 500 mg tablet 500 mg PO DAILY 5 Days Qty: 5 RF: 0 Symbicort 160-4.5 mcg/actuation HFA aerosol inhaler 2 inh INHALATION Q12H Qty: 10.2 RF: 0 Tessalon Perles 100 mg capsule 100 mg PO BID Qty: 10 RF: 0 Continued aspirin 81 mg tablet,delayed release (DR/EC) 81 mg PO DAILY 30 Days Qty: 30 RF: 11 atorvastatin 40 mg tablet 40 mg PO DAILY 30 Days Qty: 30 RF: 11 clopidogrel 75 mg tablet 75 mg PO DAILY 30 Days Qty: 30 RF: 2 famotidine 20 mg tablet 20 mg PO BID 30 Days Qty: 60 RF: 5 pantoprazole 40 mg tablet,delayed release (DR/EC) 40 mg PO DAILY 30 Days Qty: 30 RF: 5 lisinopril 2.5 mg tablet 2.5 mg PO DAILY 30 Days Qty: 30 RF: 2 metformin 1,000 mg tablet 1,000 mg PO BID 30 Days Qty: 60 RF: 2 sertraline 50 mg tablet 50 mg PO DAILY 30 Days Qty: 30 RF: 2 clonazepam 0.5 mg tablet 0.5 mg PO DAILY PRN (Reason: anxiety) 90 Days Qty: 30 RF: 0 docusate sodium 100 mg tablet 100 mg PO BID 30 Days Qty: 60 RF: 5 isosorbide mononitrate 30 mg tablet extended release 24 hr 30 mg PO QAM 30 Days Qty: 30 RF: 2 nitroglycerin 0.4 mg tablet, sublingual 0.4 mg SUBLINGUAL Q5M PRN (Reason: chest pain) Qty: 14 RF: 0 tamsulosin 0.4 mg capsule 0.4 mg PO DAILY 30 Days Qty: 30 RF: 2 potassium chloride 20 mEq tablet extended release 20 meq PO DAILY 30 Days Qty: 30 RF: 2 thiamine HCl (vitamin B1) 100 mg tablet 50 mg PO DAILY 30 Days Qty: 30 RF: 5 folic acid 1 mg tablet 1 mg PO DAILY 30 Days Qty: 30 RF: 5 Zenpep 5,000-17,000- 24,000 unit Capsule,Delayed Release(Dr/Ec) 1 cap PO TID RF: 0 Novolog Flexpen U-100 Insulin 100 unit/mL (3 mL) insulin pen See Rx Instructions .ROUTE .COMPLEX MDD 30 units RF: 0 Changed metoprolol tartrate 50 mg Tablet 50 mg PO BID Qty: 60 RF: 0 furosemide 40 mg tablet 40 mg PO QAM PRN (Reason: Shortness of breath) 30 Days Qty: 30 RF: 2 Discontinued carvedilol 3.125 mg tablet 3.125 mg PO BID 30 Days Qty: 60 RF: 2 Creon 6,000-19,000 -30,000 unit capsule,delayed release(DR/EC) 1 cap PO TID 30 Days Qty: 90 RF: 5 Discharge Orders: Discharge Order (Routine); Ordered 01/26/20 Ordered By: Job Freeman Referrals: [facility] [Other] (This is the phone number to call to request a caregiver or in-home care consultant to come to your home and provide help with cooking, cleaning, shopping, errands, etc. They will complete a phone interview and determine if you meet requirements for this service.) Sandro Taylor MD [Physician] - 1 month (Heart care services will contact you regarding your appointment. If you have not heard from them by Wednesday afternoon, please call and schedule your appointment to be seen by Dr. Taylor in one month. ) Silvana Nieves MD [Primary Care Provider] - 2 weeks (Please follow up with Dr. Nieves on Wednesday, February 06 at 2:30 pm. If you have any conflicts with this appointment, please call to reschedule. ) Discharge Diet: Cardiac Discharge Activity: Resume usual activity Patient Instructions: Benzonatate (By mouth), Levofloxacin (By mouth), Budesonide/Formoterol (By breathing), Myocardial Infarction (DC), CHF Stoplight, Chest Pain Stoplight Activity Restrictions/Additional Instructions: Incentive spirometry. Please follow-up with cardiology next 1 month. Please follow-up with Dr. Nieves in the next 2 weeks. During her appointment with Dr. Nieves she will also discuss with you regarding before the results of pleural fluid including stool studies for tuberculosis. Discharge Date/Time: 01/26/20 12:45 Discharge Attestations Time Spent in Discharge Care*: greater than 30 min Specific Discharge Activities: Specific discharge activities: educating patient, discussing with pcp/other providers, discussing with mattress spring encaser/social workers/dc planners, documenting/other paperwork and evaluating patient/reviewing data Status at Discharge: Cognitive status at discharge: cognitively intact , Behavioral status at discharge: cooperative , Functional status at discharge: independent ambulation Overall status at discharge: patient is back to baseline Quality Metrics Clinical Quality Measures During this hospital stay, did patient experience: AMI Clinical Trial Participant: No Contraindication to aspirin (AMI): Aspirin given Contraindication to statin: Statin prescribed Contraindication to PCI: Intervention not indicated Contraindication to Fibrinolytics: Fibrinolytics given and None Coding Level of Care Code Acute Oncology Physician for [employer] Diagnoses Loculated pleural effusion J90 NSTEMI (non-ST elevated myocardial infarction) I21.4 CHF (congestive heart failure) I50.21 Heart failure chronicity: acute Heart failure type: systolic Hypertension I10 Hypertension type: essential hypertension
[2020-01-26 10:43] LABS: Glucose Point of Care 84 mg/dL (70-110)
[2020-01-26] MEDS: ALPRAZolam 0.5 mg Tablet PO (12:02)
--- NOTE | 2020-01-26 12:34 | PC.NURSE ---
Discharge instructions given per the physician's orders. Patient verbalized understanding and did not have any further questions. Dressing change supplies given to patient. Patient demonstrated understanding of teaching of how to perform dressing changes. Meds have been delivered to bedside. Patient does not have any further questions regarding discharge medications.
== END 2020-01-26 12:45 | disposition home or self-care (01) | DRG 280 ==
LOC: ER 18:03 → CSU 20:05 → ICU 01-22 00:57 → CSU 01-23 15:15
PROVIDERS: Thoracic Surgery (Cardiothoracic Vascular Surgery); Admitting Provider Internal Medicine; Emergency Provider Emergency Medicine; PCP Family Medicine; Visit Provider Student in an Organized Health Care Education/Training Program
PROC: 0W9B30Z Drainage of Left Pleural Cavity with Drainage Device, Percutaneous Approach (ICD-10-PCS; CPT 32550; 2020-01-22 12:20)
PROC: 0BPQ30Z Removal of Drainage Device from Pleura, Percutaneous Approach (ICD-10-PCS; CPT 32552; principal; 2020-01-25 15:00)
DX: I21.4 Non-ST elevation (NSTEMI) myocardial infarction (principal); I50.21 Acute systolic (congestive) heart failure; J15.1 Pneumonia due to Pseudomonas; R64 Cachexia; J91.8 Pleural effusion in other conditions classified elsewhere; K86.1 Other chronic pancreatitis; I11.0 Hypertensive heart disease with heart failure; Z95.5 Presence of coronary angioplasty implant and graft; Z79.82 Long term (current) use of aspirin; Z79.02 Long term (current) use of antithrombotics/antiplatelets; Z79.84 Long term (current) use of oral hypoglycemic drugs; N40.0 Benign prostatic hyperplasia without lower urinary tract symptoms; I25.10 Atherosclerotic heart disease of native coronary artery without angina pectoris; K21.9 Gastro-esophageal reflux disease without esophagitis; F41.1 Generalized anxiety disorder; E11.42 Type 2 diabetes mellitus with diabetic polyneuropathy; F17.210 Nicotine dependence, cigarettes, uncomplicated; D53.9 Nutritional anemia, unspecified
CPT/HCPCS: 12345; 36415; 36416; 71045; 71275; 75989; 76000; 78452; 80048; 80053; 80061; 80202; 80307; 80500; 81003; 82164; 82565; 82607; 82746; 82945; 82962; 83540; 83550; 83615; 83880; 83986; 84145; 84157; 84311; 84443; 84484; 85014; 85018; 85025; 85610; 85730; 86403; 86480; 87015; 87040; 87070; 87075; 87077; 87116; 87186; 87205; 87206; 87449; 87556; 87641; 87801; 87804; 88112; 88305; 89050; 93005; 93017; 93306; 94640; 96372; 96375; 99284; A9500; J1170; J1650; J1815; J1885; J1940; J2001; J2270; J2405; J2543; J2785; J3010; J3370; J7050; J7626; Q0144; Q9967

== ENCOUNTER → 2020-01-31 17:08 | Outpatient (BNVA) | payer MEDICAID, SELFPAY | PROVIDERS: PCP Family Medicine; Visit Provider Family Medicine | DX: E87.5 Hyperkalemia (principal); E78.5 Hyperlipidemia, unspecified; Z86.39 Personal history of other endocrine, nutritional and metabolic disease; I10 Essential (primary) hypertension | CPT/HCPCS: 80048 ==

== ENCOUNTER → 2020-05-06 17:58 | Outpatient (BNVA) | payer MEDICAID, SELFPAY | PROVIDERS: PCP Family Medicine; Visit Provider Family Medicine | DX: J44.9 Chronic obstructive pulmonary disease, unspecified (principal); J41.0 Simple chronic bronchitis; I25.10 Atherosclerotic heart disease of native coronary artery without angina pectoris; I50.21 Acute systolic (congestive) heart failure; F41.1 Generalized anxiety disorder; N40.0 Benign prostatic hyperplasia without lower urinary tract symptoms; E11.40 Type 2 diabetes mellitus with diabetic neuropathy, unspecified; E11.69 Type 2 diabetes mellitus with other specified complication; Z79.4 Long term (current) use of insulin | CPT/HCPCS: 80053; 80307; 83036; 85025 ==

== ENCOUNTER 2020-05-14 14:45 | Emergency (ER) | payer MEDICAID, SELFPAY ==
[2020-05-14 14:50] VITALS: BP 124/84; PULSE 97; RESP 18; TEMP 36.3; O2SAT 100; BMI 17.4
--- NOTE | 2020-05-14 15:24 | CTR_ITS ---
PROCEDURE INFORMATION: Exam: CT Lumbar Spine Without Contrast Exam date and time: 05/14/2020 3:32 PM Age: 55 years old Clinical indication: Patient HX: Fall today. C/O low back pain. ; Additional info: Pain after fall TECHNIQUE: Imaging protocol: Computed tomography images of the lumbar spine without contrast. Radiation optimization: All CT scans at this facility use at least one of these dose optimization techniques: automated exposure control; mA and/or kV adjustment per patient size (includes targeted exams where dose is matched to clinical indication); or iterative reconstruction. COMPARISON: No relevant prior studies available. RADIATION DOSE METRICS: Total DLP (mGy-cm): 995.87 FINDINGS: Vertebrae: The vertebral body heights are maintained. There is no acute fracture or subluxation. [id number] facet degenerative changes are noted in the lower lumbar spine. Discs/Spinal canal/Neural foramina: There is a small disc bulge at L4-L5 with mild narrowing of the central canal and foramina but no critical stenosis. Sacrum/coccyx: Mild symmetric degenerative changes of the sacroiliac joints are noted. Lungs: There is bibasilar ground-glass opacity compatible with mild pneumonitis versus atelectasis. Soft tissues: There is diffuse induration of the subcutaneous fat and mesenteric fat compatible with anasarca type changes. CT/CT lumbar spine wo con* [id number] IMPRESSION: 1. No acute fracture. No acute abnormality. Small disc bulge at L4-L5 is noted without stenosis. 2. There is diffuse induration of the subcutaneous fat and mesenteric fat compatible with anasarca type changes. 3. There is bibasilar ground-glass opacity compatible with mild pneumonitis versus atelectasis. Radiation Dose CTDIVOL = (mGy): DLP = 995.87 (mGy-cm)
--- NOTE | 2020-05-14 15:25 | XRR_ITS ---
PROCEDURE INFORMATION: Exam: XR Chest, 1 View Exam date and time: 05/14/2020 4:00 PM Age: 55 years old Clinical indication: Injury or trauma; Fall; Cough and dyspnea; Blunt trauma (contusions or hematomas); Injury details: Sac drain; Prior surgery; Additional info: Dyspnea/cough TECHNIQUE: Imaging protocol: XR of the chest Views: 1 view. COMPARISON: CR XR chest 1V [id number] 01/25/2020 10:06 AM FINDINGS: Lungs: Unremarkable. No consolidation. There is unchanged severe hyperinflation with mild fibrosis. Unchanged basilar scarring. Pleural space: Unremarkable. No pleural effusion. No pneumothorax. Heart/Mediastinum: Unremarkable. No cardiomegaly. Bones/joints: No acute abnormality. XR/XR chest 1V portable [id number] IMPRESSION: No acute findings.
--- NOTE | 2020-05-14 15:25 | CTR_ITS ---
PROCEDURE INFORMATION: Exam: CT Head Without Contrast Exam date and time: 05/14/2020 3:32 PM Age: 55 years old Clinical indication: Headache; Patient HX: Fall today with blow to head. C/O pain. ; Additional info: Closed head injury TECHNIQUE: Imaging protocol: Computed tomography of the head without contrast. Radiation optimization: All CT scans at this facility use at least one of these dose optimization techniques: automated exposure control; mA and/or kV adjustment per patient size (includes targeted exams where dose is matched to clinical indication); or iterative reconstruction. COMPARISON: No relevant prior studies available. RADIATION DOSE METRICS: Total DLP (mGy-cm): 841.92 FINDINGS: Brain: There is mild white matter lucency consistent with chronic microvascular disease. There is no evidence of acute infarct. There is no hemorrhage or extra-axial collection. There is no mass. Cerebral ventricles: No ventriculomegaly. Bones/joints: Unremarkable. No acute fracture. Paranasal sinuses: There is left maxillary sinus mucosal thickening. No air-fluid levels. Mastoid air cells: Visualized mastoid air cells are well aerated. Soft tissues: Unremarkable. CT/CT head wo con* [id number] IMPRESSION: 1. There is mild chronic microvascular disease. 2. No acute intracranial injury or lesion. Radiation Dose CTDIVOL = (mGy): DLP = 841.92 (mGy-cm)
--- NOTE | 2020-05-14 15:26 | ECG_ITS ---
[facility] Test Date: 2020-05-14 Pat Name: Miguel Kuhn Department: Room: Gender: Male Tomographic Tech: : 1965 Requested By: Papito Gomez Order Number: [id number] Delgado MD: Maria Elena Bolaños M.D. Measurements Intervals [place] Rate: 87 P: 77 [place]: 184 QRS: 74 QRSD: 101 T: 32 QT: 405 QTc: 489 Interpretive Statements SINUS RHYTHM Compared to ECG 01/22/2020 01:33:51 T-wave abnormality no longer present Electronically Signed On 05-14-2020 17:27:17 CDT by Maria Elena Bolaños M.D. [id number]
--- NOTE | 2020-05-14 15:27 | W.ED.FALL ---
Documented by User: Papito Méndez DO 05/20/20 08:12 HPI - Fall General: Chief Complaint: Fall Stated Complaint: fell/back pain Time Seen by Provider: 05/14/20 14:47 History of Present Illness: HPI Narrative: 55 yo male present to the ER with a complaint of fall at [employer] parking lot yesterday. He was recently hospitalized in [place]. Today's having some chest pain and dizziness is very nonspecific about his symptoms. His biggest complaint is back pain. MD complaint: fall Onset (ago): day(s) Fall from: standing Fall witnessed: yes, by family Place fall occurred: street Loss of consciousness: None Prolonged down time: no Symptoms prior to fall: lightheadedness and dizziness Quality: aching Associated symptoms-after fall: Reports chest pain; Denies abdominal pain Review of Systems Const: Denies: fever(s), chills, body aches, change in appetite, fatigue or malaise ENMT: Denies: throat pain, ear or mastoid pain, nasal discharge or nasal congestion Card: Reports: chest pain Resp: Denies: dyspnea, productive cough or non-productive cough GI: Denies: abdominal pain, nausea, vomiting, hematemesis, coffee ground emesis, diarrhea, constipation, bloating, hematochezia or melena : Denies: flank pain, dysuria, urinary frequency or urinary urgency Skin/Breast: Denies: rash or pruritus PFSH ED PFSH: Medical History Anemia BPH (benign prostatic hyperplasia) Follows up with Dr. Bryant Bladder outlet obstruction CAD (coronary artery disease) CHF (congestive heart failure) EF 40% Chronic back pain Chronic pancreatitis Secondary to alcoholism Constipation COPD (chronic obstructive pulmonary disease) LIZZIE (generalized anxiety disorder) GERD (gastroesophageal reflux disease) Hx of hypokalemia Hypertension Peripheral neuropathy Presence of pancreatic duct stent Type 2 diabetes mellitus Surgical History H/O cardiac catheterization Recent stent at [place] 2 months ago Stented coronary artery Family History Denies family history of Lung disease Hypertension Social History Smoking and tobacco status: current every day smoker cigarettes Alcohol intake: former Household members: family and other Details: Takes care of his father 87 years old Housing: House Physical Exam Const: COMMON NORMALS: no acute distress GENERAL APPEARANCE: cooperative and comfortable ORIENTATION/CONSCIOUSNESS: Yes awake, Yes oriented to person, Yes oriented to place and Yes oriented to time HENMT: COMMON NORMALS: normocephalic, atraumatic and hearing grossly normal bilaterally HEAD & SCALP: normocephalic and atraumatic Eye: COMMON NORMALS: Equal, round and reactive pupils present, EOMs intact bilaterally, conjunctivae normal and no scleral icterus CONJUNCTIVA: Yes conjunctivae normal PUPIL: Yes Equal, round and reactive pupils present Neck/C-Spine: COMMON NORMALS: full ROM, no lymphadenopathy, supple and no JVD Lymph: LYMPHATIC: no lymphadenopathy noted and no lymphedema noted Resp: COMMON NORMALS: normal respiratory effort, No retractions, No use of accessory muscles and clear to auscultation bilaterally AUSCULTATION: clear to auscultation bilaterally Cardio: COMMON NORMALS: no JVD, regular rate, regular rhythm and No murmurs present (Cardio) RATE: regular rate RHYTHM: regular rhythm GI: COMMON NORMALS: Soft to palpation and No hepatosplenomegaly present AUSCULTATION: Yes normoactive bowel sounds PALPATION: Yes Soft to palpation, No Tenderness to palpation present (GI), No Guarding due to palpation present (GI) and Yes No hepatosplenomegaly present Extremity: COMMON NORMALS: normal to inspection, capillary refill normal, no clubbing, cyanosis or edema, no calf tenderness and no pedal edema Neuro: SENSORIUM/ORIENTATION: Yes oriented to person, Yes oriented to place and Yes oriented to time Skin: COMMON NORMALS: no rashes or lesions noted GENERAL SKIN EXAM: no rashes or lesions noted Course Vital Signs: Vital signs: Vital Signs Temperature 97.3 F L 05/14/20 14:50 Pulse Rate 88 05/14/20 21:56 Respiratory Rate 16 05/14/20 21:56 Blood Pressure 150/96 05/14/20 21:56 Pulse Oximetry 100 05/14/20 21:56 MDM - Fall MDM Narrative: Medical decision making narrative: Care turned over to Dr. Jaimes at change of shift Lab Data: Labs: Lab Results 05/14/20 05/14/20 05/14/20 Range/Units 15:57 15:57 15:57 WBC 8.7 (4.0-10.0) 10^3/ uL RBC 2.81 L (4.1-5.3) 10^6/u L Hgb 8.6 L (11.7-16.6) g/dL Hct 25.8 L (42.0-52.0) % MCV 91.8 (80-94) fL MCH 30.6 (28.0-34.0) pg MCHC 33.3 (30.0-36.0) g/dL RDW 17.0 H (12.1-15.1) % Plt Count 178 (130-400) 10^3/c mm MPV 11.3 H (7.4-10.4) fL Neut % (Auto) 67.3 % Lymph % (Auto) 25.1 % Mathews % (Auto) 6.4 % Eos % (Auto) 0.2 % Baso % (Auto) 0.7 % Neut # (Auto) 5.84 (1.8-7.7) 10^3/u L Lymph # (Auto) 2.2 (0.8-4.8) 10^3/u L Mathews # (Auto) 0.6 (0.2-0.9) 10^3/u L Eos # (Auto) 0.0 (0.0-0.8) 10^3/u L Baso # (Auto) 0.1 (0.0-0.1) 10^3/u L Nucleated RBC % (a uto) 0 % Nucleated RBCs # 0.0 /100WBC Sodium 134 L (136-145) mmol/L Potassium 3.4 L (3.5-5.1) mmol/L Chloride 98 (98-107) mmol/L Carbon Dioxide 27 (22-29) mmol/L Anion Gap 12.4 (5-19) BUN 15 (6-20) mg/dL Creatinine 0.6 L (0.7-1.2) mg/dL GFR Calculation 138.9 H (90-130) mL/min Glucose 87 (65-115) mg/dL Calculated Osmolal ity 278 L (285-295) mOsm/k g Lactic Acid (0.5-2.2) mmol/L Calcium 8.2 L (8.5-10.5) mg/dL Total Bilirubin 0.5 (0.15-1.2) mg/dL AST 90 H (0-40) U/L ALT 46 H (0-41) U/L Alkaline Phosphata se 310 H (40-130) IU/L Creatine Kinase 83 (39-308) U/L Troponin T Baselin e 97 H (0-15) ng/L Total Protein 6.7 (6.6-8.7) g/dL Albumin 3.0 L (3.5-5.2) g/dL Globulin 3.7 (1.3-4.6) g/dL Lipase 4 L (13-60) U/L Urine Color (Yellow) Urine Appearance (CLEAR) Urine pH (5-7) Ur Specific Gravit y (1.005-1.030) Urine Protein (Negative) Urine Glucose (UA) (Normal) Urine Ketones (Negative) Urine Blood (Negative) Urine Nitrate (Negative) Urine Bilirubin (Negative) Urine Urobilinogen (Negative) mg/dL Ur Leukocyte Destiny ase (Negative) Urine RBC (0-2) /hpf Urine WBC (0-5) /hpf Ur Squamous Epith Cells (0-5) /hpf Calcium Oxalate Cr ystal /hpf Amorphous Sediment Urine Bacteria (NONE) /hpf Urine Yeast /hpf Serum Ketones Negative (Negative) Hepatitis A IgM Ab (Nonreactive) Hep Bs Antigen (Nonreactive) Hep B Core IgM Ab (Nonreactive) Hepatitis C Antibo dy (Nonreactive) SARS-CoV-2 Ag (Rap id) (Negative) 05/14/20 05/14/20 05/14/20 Range/Units 16:00 17:01 17:06 WBC (4.0-10.0) 10^3/ uL RBC (4.1-5.3) 10^6/u L Hgb (11.7-16.6) g/dL Hct (42.0-52.0) % MCV (80-94) fL MCH (28.0-34.0) pg MCHC (30.0-36.0) g/dL RDW (12.1-15.1) % Plt Count (130-400) 10^3/c mm MPV (7.4-10.4) fL Neut % (Auto) % Lymph % (Auto) % Mathews % (Auto) % Eos % (Auto) % Baso % (Auto) % Neut # (Auto) (1.8-7.7) 10^3/u L Lymph # (Auto) (0.8-4.8) 10^3/u L Mathews # (Auto) (0.2-0.9) 10^3/u L Eos # (Auto) (0.0-0.8) 10^3/u L Baso # (Auto) (0.0-0.1) 10^3/u L Nucleated RBC % (a uto) % Nucleated RBCs # /100WBC Sodium (136-145) mmol/L Potassium (3.5-5.1) mmol/L Chloride (98-107) mmol/L Carbon Dioxide (22-29) mmol/L Anion Gap (5-19) BUN (6-20) mg/dL Creatinine (0.7-1.2) mg/dL GFR Calculation (90-130) mL/min Glucose (65-115) mg/dL Calculated Osmolal ity (285-295) mOsm/k g Lactic Acid (0.5-2.2) mmol/L Calcium (8.5-10.5) mg/dL Total Bilirubin (0.15-1.2) mg/dL AST (0-40) U/L ALT (0-41) U/L Alkaline Phosphata se (40-130) IU/L Creatine Kinase (39-308) U/L Troponin T Baselin e (0-15) ng/L Total Protein (6.6-8.7) g/dL Albumin (3.5-5.2) g/dL Globulin (1.3-4.6) g/dL Lipase (13-60) U/L Urine Color Yellow (Yellow) Urine Appearance Hazy A (CLEAR) Urine pH 5 (5-7) Ur Specific Gravit y 1.015 (1.005-1.030) Urine Protein Neg (Negative) Urine Glucose (UA) Norm (Normal) Urine Ketones Negative (Negative) Urine Blood 2+ H (Negative) Urine Nitrate Negative (Negative) Urine Bilirubin Neg (Negative) Urine Urobilinogen Norm (Negative) mg/dL Ur Leukocyte Destiny ase 1+ H (Negative) Urine RBC 0-4 H (0-2) /hpf Urine WBC 5-10 H (0-5) /hpf Ur Squamous Epith Cells 0-4 H (0-5) /hpf Calcium Oxalate Cr ystal Too numerous to c nt H /hpf Amorphous Sediment Not Reportable Urine Bacteria Trace (NONE) /hpf Urine Yeast 4+ H /hpf Serum Ketones (Negative) Hepatitis A IgM Ab Non-reactive (Nonreactive) Hep Bs Antigen Non-reactive (Nonreactive) Hep B Core IgM Ab Non-reactive (Nonreactive) Hepatitis C Antibo dy Non-reactive (Nonreactive) SARS-CoV-2 Ag (Rap id) Negative (Negative) 05/14/20 05/14/20 Range/Units 20:25 20:30 WBC (4.0-10.0) 10^3/ uL RBC (4.1-5.3) 10^6/u L Hgb (11.7-16.6) g/dL Hct (42.0-52.0) % MCV (80-94) fL MCH (28.0-34.0) pg MCHC (30.0-36.0) g/dL RDW (12.1-15.1) % Plt Count (130-400) 10^3/c mm MPV (7.4-10.4) fL Neut % (Auto) % Lymph % (Auto) % Mathews % (Auto) % Eos % (Auto) % Baso % (Auto) % Neut # (Auto) (1.8-7.7) 10^3/u L Lymph # (Auto) (0.8-4.8) 10^3/u L Mathews # (Auto) (0.2-0.9) 10^3/u L Eos # (Auto) (0.0-0.8) 10^3/u L Baso # (Auto) (0.0-0.1) 10^3/u L Nucleated RBC % (a uto) % Nucleated RBCs # /100WBC Sodium (136-145) mmol/L Potassium (3.5-5.1) mmol/L Chloride (98-107) mmol/L Carbon Dioxide (22-29) mmol/L Anion Gap (5-19) BUN (6-20) mg/dL Creatinine (0.7-1.2) mg/dL GFR Calculation (90-130) mL/min Glucose (65-115) mg/dL Calculated Osmolal ity (285-295) mOsm/k g Lactic Acid 2.0 (0.5-2.2) mmol/L Calcium (8.5-10.5) mg/dL Total Bilirubin (0.15-1.2) mg/dL AST (0-40) U/L ALT (0-41) U/L Alkaline Phosphata se (40-130) IU/L Creatine Kinase (39-308) U/L Troponin T Baselin e 88 H (0-15) ng/L Total Protein (6.6-8.7) g/dL Albumin (3.5-5.2) g/dL Globulin (1.3-4.6) g/dL Lipase (13-60) U/L Urine Color (Yellow) Urine Appearance (CLEAR) Urine pH (5-7) Ur Specific Gravit y (1.005-1.030) Urine Protein (Negative) Urine Glucose (UA) (Normal) Urine Ketones (Negative) Urine Blood (Negative) Urine Nitrate (Negative) Urine Bilirubin (Negative) Urine Urobilinogen (Negative) mg/dL Ur Leukocyte Destiny ase (Negative) Urine RBC (0-2) /hpf Urine WBC (0-5) /hpf Ur Squamous Epith Cells (0-5) /hpf Calcium Oxalate Cr ystal /hpf Amorphous Sediment Urine Bacteria (NONE) /hpf Urine Yeast /hpf Serum Ketones (Negative) Hepatitis A IgM Ab (Nonreactive) Hep Bs Antigen (Nonreactive) Hep B Core IgM Ab (Nonreactive) Hepatitis C Antibo dy (Nonreactive) SARS-CoV-2 Ag (Rap id) (Negative) Discharge Plan Discharge Patient Disposition: Home Clinical Impression: Fall Qualifiers: Encounter type: initial encounter Qualified Code(s): W19.XXXA - Unspecified fall, initial encounter Pneumonia Qualifiers: Pneumonia type: due to unspecified organism Condition: Stable Prescriptions: New levofloxacin 750 mg tablet 750 mg PO DAILY 7 Days RF: 0 No Action aspirin 81 mg tablet,delayed release (DR/EC) 81 mg PO DAILY 30 Days Qty: 30 RF: 11 atorvastatin 40 mg tablet 40 mg PO DAILY 30 Days Qty: 30 RF: 11 Adult Probiotic 3 billion cell capsule 3,000 mmu cells PO DAILY 30 Days Qty: 30 RF: 5 nitroglycerin 0.4 mg tablet, sublingual 0.4 mg SUBLINGUAL Q5M PRN (Reason: chest pain) Qty: 14 RF: 0 ondansetron HCl [Zofran] 4 mg tablet 4 mg PO Q8H 30 Days Qty: 90 RF: 1 pantoprazole 40 mg tablet,delayed release (DR/EC) 40 mg PO DAILY 30 Days Qty: 30 RF: 5 Zenpep 5,000-17,000- 24,000 unit capsule,delayed release(DR/EC) 1 cap PO TID 30 Days Qty: 90 RF: 2 vancomycin 125 mg capsule 125 mg PO QID 10 Days Qty: 40 RF: 0 Fluarix Quad [id number] (PF) 60 mcg (15 mcg x 4)/0.5 mL syringe 0.5 ml IM ONCE Qty: 0.5 RF: 0 Symbicort 160-4.5 mcg/actuation HFA aerosol inhaler 2 inh INHALATION Q12H Qty: 10.2 RF: 2 sertraline 50 mg tablet 50 mg PO DAILY 30 Days Qty: 30 RF: 2 clopidogrel 75 mg tablet 75 mg PO DAILY 30 Days Qty: 30 RF: 2 Levemir FlexTouch U-100 Insuln 100 unit/mL (3 mL) insulin pen 15 unit SUBCUT DAILY 30 Days Qty: 15 RF: 2 tamsulosin 0.4 mg capsule 0.4 mg PO DAILY 30 Days Qty: 30 RF: 2 cyclobenzaprine 5 mg tablet 10 mg PO TID MDD 6 tabs PRN (Reason: muscle spasm) Qty: 30 RF: 1 furosemide 40 mg tablet 40 mg PO BID 30 Days Qty: 60 RF: 2 gabapentin 300 mg capsule 300 mg PO TID 30 Days Qty: 90 RF: 2 isosorbide mononitrate 30 mg tablet extended release 24 hr 30 mg PO QAM 30 Days Qty: 30 RF: 2 clonazepam 0.5 mg tablet 0.5 mg PO DAILY PRN (Reason: anxiety) 30 Days Qty: 30 RF: 0 potassium chloride 20 mEq tablet extended release 20 meq PO TID 30 Days Qty: 90 RF: 2 ferrous sulfate 325 mg (65 mg iron) tablet 325 mg PO DAILY 30 Days Qty: 30 RF: 2 Novolog Flexpen U-100 Insulin 100 unit/mL (3 mL) insulin pen See Rx Instructions .ROUTE .COMPLEX MDD 30 units RF: 0 Hold Instructions: Home Medication placed on hold at Doctor's office Discharge Orders: Discharge Order (Routine); Ordered 05/14/20 Ordered By: Martin Jaimes Referrals: Silvana Nieves MD [Primary Care Provider] - Discharge Diet: Advance as tolerated Discharge Activity: Resume usual activity Patient Instructions: Fall Prevention (ED), Pneumonia (ED) Discharge Date/Time: 05/14/20 21:57 Coding Level of Care Code ED Pharmacy Benefit Manager for Chg Fwd Documented by User: Martin Jaimes MD 05/14/20 22:03 HPI - Fall General: Chief Complaint: Fall Stated Complaint: fell/back pain Time Seen by Provider: 05/14/20 14:47 PFSH ED PFSH: Medical History Anemia BPH (benign prostatic hyperplasia) Follows up with Dr. Bryant Bladder outlet obstruction CAD (coronary artery disease) CHF (congestive heart failure) EF 40% Chronic back pain Chronic pancreatitis Secondary to alcoholism Constipation COPD (chronic obstructive pulmonary disease) LIZZIE (generalized anxiety disorder) GERD (gastroesophageal reflux disease) Hx of hypokalemia Hypertension Peripheral neuropathy Presence of pancreatic duct stent Type 2 diabetes mellitus Surgical History H/O cardiac catheterization Recent stent at [place] 2 months ago Stented coronary artery Family History Denies family history of Lung disease Hypertension Social History Smoking and tobacco status: current every day smoker cigarettes Alcohol intake: former Household members: family and other Details: Takes care of his father 87 years old Housing: House Course Vital Signs: Vital signs: Vital Signs Temperature 97.3 F L 05/14/20 14:50 Pulse Rate 88 10/20/20 21:56 Respiratory Rate 16 05/14/20 21:56 Blood Pressure 150/96 05/14/20 21:56 Pulse Oximetry 100 05/14/20 21:56 MDM - Fall MDM Narrative: Medical decision making narrative: 55-year-old male who presents here with back neck pain from a fall. Patient states he is also had a slight cough. His Covid here is negative. X-ray chest was negative but CT abdomen pelvis did show some opacities in lower lobes we will start him on Levaquin. Patient feels improved here. Patient is stable for discharge and return if worsening. Lab Data: Labs: Lab Results 05/14/20 05/14/20 05/14/20 Range/Units 15:57 15:57 15:57 WBC 8.7 (4.0-10.0) 10^3/ uL RBC 2.81 L (4.1-5.3) 10^6/u L Hgb 8.6 L (11.7-16.6) g/dL Hct 25.8 L (42.0-52.0) % MCV 91.8 (80-94) fL MCH 30.6 (28.0-34.0) pg MCHC 33.3 (30.0-36.0) g/dL RDW 17.0 H (12.1-15.1) % Plt Count 178 (130-400) 10^3/c mm MPV 11.3 H (7.4-10.4) fL Neut % (Auto) 67.3 % Lymph % (Auto) 25.1 % Mathews % (Auto) 6.4 % Eos % (Auto) 0.2 % Baso % (Auto) 0.7 % Neut # (Auto) 5.84 (1.8-7.7) 10^3/u L Lymph # (Auto) 2.2 (0.8-4.8) 10^3/u L Mathews # (Auto) 0.6 (0.2-0.9) 10^3/u L Eos # (Auto) 0.0 (0.0-0.8) 10^3/u L Baso # (Auto) 0.1 (0.0-0.1) 10^3/u L Nucleated RBC % (a uto) 0 % Nucleated RBCs # 0.0 /100WBC Sodium 134 L (136-145) mmol/L Potassium 3.4 L (3.5-5.1) mmol/L Chloride 98 (98-107) mmol/L Carbon Dioxide 27 (22-29) mmol/L Anion Gap 12.4 (5-19) BUN 15 (6-20) mg/dL Creatinine 0.6 L (0.7-1.2) mg/dL GFR Calculation 138.9 H (90-130) mL/min Glucose 87 (65-115) mg/dL Calculated Osmolal ity 278 L (285-295) mOsm/k g Lactic Acid (0.5-2.2) mmol/L Calcium 8.2 L (8.5-10.5) mg/dL Total Bilirubin 0.5 (0.15-1.2) mg/dL AST 90 H (0-40) U/L ALT 46 H (0-41) U/L Alkaline Phosphata se 310 H (40-130) IU/L Creatine Kinase 83 (39-308) U/L Troponin T Baselin e 97 H (0-15) ng/L Total Protein 6.7 (6.6-8.7) g/dL Albumin 3.0 L (3.5-5.2) g/dL Globulin 3.7 (1.3-4.6) g/dL Lipase 4 L (13-60) U/L Urine Color (Yellow) Urine Appearance (CLEAR) Urine pH (5-7) Ur Specific Gravit y (1.005-1.030) Urine Protein (Negative) Urine Glucose (UA) (Normal) Urine Ketones (Negative) Urine Blood (Negative) Urine Nitrate (Negative) Urine Bilirubin (Negative) Urine Urobilinogen (Negative) mg/dL Ur Leukocyte Destiny ase (Negative) Urine RBC (0-2) /hpf Urine WBC (0-5) /hpf Ur Squamous Epith Cells (0-5) /hpf Calcium Oxalate Cr ystal /hpf Amorphous Sediment Urine Bacteria (NONE) /hpf Urine Yeast /hpf Serum Ketones Negative (Negative) Hepatitis A IgM Ab (Nonreactive) Hep Bs Antigen (Nonreactive) Hep B Core IgM Ab (Nonreactive) Hepatitis C Antibo dy (Nonreactive) SARS-CoV-2 Ag (Rap id) (Negative) 05/14/20 05/14/20 05/14/20 Range/Units 16:00 17:01 17:06 WBC (4.0-10.0) 10^3/ uL RBC (4.1-5.3) 10^6/u L Hgb (11.7-16.6) g/dL Hct (42.0-52.0) % MCV (80-94) fL MCH (28.0-34.0) pg MCHC (30.0-36.0) g/dL RDW (12.1-15.1) % Plt Count (130-400) 10^3/c mm MPV (7.4-10.4) fL Neut % (Auto) % Lymph % (Auto) % Mathews % (Auto) % Eos % (Auto) % Baso % (Auto) % Neut # (Auto) (1.8-7.7) 10^3/u L Lymph # (Auto) (0.8-4.8) 10^3/u L Mathews # (Auto) (0.2-0.9) 10^3/u L Eos # (Auto) (0.0-0.8) 10^3/u L Baso # (Auto) (0.0-0.1) 10^3/u L Nucleated RBC % (a uto) % Nucleated RBCs # /100WBC Sodium (136-145) mmol/L Potassium (3.5-5.1) mmol/L Chloride (98-107) mmol/L Carbon Dioxide (22-29) mmol/L Anion Gap (5-19) BUN (6-20) mg/dL Creatinine (0.7-1.2) mg/dL GFR Calculation (90-130) mL/min Glucose (65-115) mg/dL Calculated Osmolal ity (285-295) mOsm/k g Lactic Acid (0.5-2.2) mmol/L Calcium (8.5-10.5) mg/dL Total Bilirubin (0.15-1.2) mg/dL AST (0-40) U/L ALT (0-41) U/L Alkaline Phosphata se (40-130) IU/L Creatine Kinase (39-308) U/L Troponin T Baselin e (0-15) ng/L Total Protein (6.6-8.7) g/dL Albumin (3.5-5.2) g/dL Globulin (1.3-4.6) g/dL Lipase (13-60) U/L Urine Color Yellow (Yellow) Urine Appearance Hazy A (CLEAR) Urine pH 5 (5-7) Ur Specific Gravit y 1.015 (1.005-1.030) Urine Protein Neg (Negative) Urine Glucose (UA) Norm (Normal) Urine Ketones Negative (Negative) Urine Blood 2+ H (Negative) Urine Nitrate Negative (Negative) Urine Bilirubin Neg (Negative) Urine Urobilinogen Norm (Negative) mg/dL Ur Leukocyte Destiny ase 1+ H (Negative) Urine RBC 0-4 H (0-2) /hpf Urine WBC 5-10 H (0-5) /hpf Ur Squamous Epith Cells 0-4 H (0-5) /hpf Calcium Oxalate Cr ystal Too numerous to c nt H /hpf Amorphous Sediment Not Reportable Urine Bacteria Trace (NONE) /hpf Urine Yeast 4+ H /hpf Serum Ketones (Negative) Hepatitis A IgM Ab Non-reactive (Nonreactive) Hep Bs Antigen Non-reactive (Nonreactive) Hep B Core IgM Ab Non-reactive (Nonreactive) Hepatitis C Antibo dy Non-reactive (Nonreactive) SARS-CoV-2 Ag (Rap id) Negative (Negative) 05/14/20 05/14/20 Range/Units 20:25 20:30 WBC (4.0-10.0) 10^3/ uL RBC (4.1-5.3) 10^6/u L Hgb (11.7-16.6) g/dL Hct (42.0-52.0) % MCV (80-94) fL MCH (28.0-34.0) pg MCHC (30.0-36.0) g/dL RDW (12.1-15.1) % Plt Count (130-400) 10^3/c mm MPV (7.4-10.4) fL Neut % (Auto) % Lymph % (Auto) % Mathews % (Auto) % Eos % (Auto) % Baso % (Auto) % Neut # (Auto) (1.8-7.7) 10^3/u L Lymph # (Auto) (0.8-4.8) 10^3/u L Mathews # (Auto) (0.2-0.9) 10^3/u L Eos # (Auto) (0.0-0.8) 10^3/u L Baso # (Auto) (0.0-0.1) 10^3/u L Nucleated RBC % (a uto) % Nucleated RBCs # /100WBC Sodium (136-145) mmol/L Potassium (3.5-5.1) mmol/L Chloride (98-107) mmol/L Carbon Dioxide (22-29) mmol/L Anion Gap (5-19) BUN (6-20) mg/dL Creatinine (0.7-1.2) mg/dL GFR Calculation (90-130) mL/min Glucose (65-115) mg/dL Calculated Osmolal ity (285-295) mOsm/k g Lactic Acid 2.0 (0.5-2.2) mmol/L Calcium (8.5-10.5) mg/dL Total Bilirubin (0.15-1.2) mg/dL AST (0-40) U/L ALT (0-41) U/L Alkaline Phosphata se (40-130) IU/L Creatine Kinase (39-308) U/L Troponin T Baselin e 88 H (0-15) ng/L Total Protein (6.6-8.7) g/dL Albumin (3.5-5.2) g/dL Globulin (1.3-4.6) g/dL Lipase (13-60) U/L Urine Color (Yellow) Urine Appearance (CLEAR) Urine pH (5-7) Ur Specific Gravit y (1.005-1.030) Urine Protein (Negative) Urine Glucose (UA) (Normal) Urine Ketones (Negative) Urine Blood (Negative) Urine Nitrate (Negative) Urine Bilirubin (Negative) Urine Urobilinogen (Negative) mg/dL Ur Leukocyte Destiny ase (Negative) Urine RBC (0-2) /hpf Urine WBC (0-5) /hpf Ur Squamous Epith Cells (0-5) /hpf Calcium Oxalate Cr ystal /hpf Amorphous Sediment Urine Bacteria (NONE) /hpf Urine Yeast /hpf Serum Ketones (Negative) Hepatitis A IgM Ab (Nonreactive) Hep Bs Antigen (Nonreactive) Hep B Core IgM Ab (Nonreactive) Hepatitis C Antibo dy (Nonreactive) SARS-CoV-2 Ag (Rap id) (Negative) Imaging Data^: CT Abd/Pel: Radiologist's impression: [facility] [address] [place] [address] CT Scan Report Signed Patient: Miguel Kuhn Unit #: [id number] : [id number] Age/Sex: 55 / M ADM Date: 05/14/20 Loc: ER Room/Bed: Attending Dr: Ordering Provider/Ordering MD: Papito Méndez DO Date of Service: 05/14/20 Procedure(s): CT abdomen pelvis w con* [id number] Accession Number(s): [id number] Report Number: [id number] PROCEDURE INFORMATION: Exam: CT Abdomen And Pelvis With Contrast Exam date and time: 05/14/2020 7:55 PM Age: 55 years old Clinical indication: Other: Diarrhea, 100 lb weight loss; Abdominal pain; Localized; Left; Additional info: Unexplained weight loss - abnormal lfts TECHNIQUE: Imaging protocol: Computed tomography of the abdomen and pelvis with intravenous contrast. Radiation optimization: All CT scans at this facility use at least one of these dose optimization techniques: automated exposure control; mA and/or kV adjustment per patient size (includes targeted exams where dose is matched to clinical indication); or iterative reconstruction. Contrast material: OMNI 300; Contrast volume: 75 ml; Contrast route: INTRAVENOUS (IV); COMPARISON: CT abdomen pelvis w con* [id number] 03/19/2019 6:44 PM RADIATION DOSE METRICS: Total DLP (mGy-cm): 209.94 FINDINGS: Lungs: Nonspecific bibasilar patchy opacity is present, consistent with atelectasis, edema, or pneumonia. Liver: Unremarkable.No mass. Gallbladder and bile ducts: There is no common bile duct dilation. The gallbladder is not visualized presumed to be from prior cholecystectomy. Pancreas: The pancreas is atrophic with scattered small calcifications compatible with sequela of chronic pancreatitis. Spleen: Normal. No splenomegaly. Adrenals: Normal. No mass. Kidneys and ureters: There is no evidence of hydronephrosis. There is no evidence of renal calcifications. Stomach and bowel: There is no evidence of intestinal perforation or obstruction. There is no evidence of colitis/diverticulitis. There is moderately excessive colonic stool content. The stomach is very distended with a large amount of food/secretions and fluid. There is an abrupt caliber change in the 2nd portion the duodenum but no definite mass or site of obstruction is identified. The loops of small bowel are unremarkable. Appendix: No evidence of appendicitis. Intraperitoneal space: Unremarkable. No free air. No significant fluid collection. Vasculature: The aorta demonstrates moderate atherosclerotic calcification. Lymph nodes: Unremarkable.No enlarged lymph nodes. Urinary bladder: There is nonspecific bladder wall thickening. This may be related to incomplete distention. Reproductive: Unremarkable as visualized. Bones/joints: Unremarkable. No acute fracture. Soft tissues: There is diffuse induration of the subcutaneous fat and mesenteric fat compatible with anasarca type changes. CT/CT abdomen pelvis w con* [id number] IMPRESSION: 1. The stomach is very distended with a large amount of food/secretions and fluid. There is an abrupt caliber change in the 2nd portion the duodenum but no definite mass or site of obstruction is identified. 2. No mass or adenopathy. The liver has an appropriate appearance. No pathologic adenopathy. 3. Nonspecific bibasilar patchy opacity is present, consistent with atelectasis, edema, or pneumonia. 4. There is diffuse induration of the subcutaneous fat and mesenteric fat compatible with anasarca type changes. Discharge Plan Discharge Patient Disposition: Home Clinical Impression: Fall Qualifiers: Encounter type: initial encounter Qualified Code(s): W19.XXXA - Unspecified fall, initial encounter Pneumonia Qualifiers: Pneumonia type: due to unspecified organism Condition: Stable Prescriptions: New levofloxacin 750 mg tablet 750 mg PO DAILY 7 Days RF: 0 No Action aspirin 81 mg tablet,delayed release (DR/EC) 81 mg PO DAILY 30 Days Qty: 30 RF: 11 atorvastatin 40 mg tablet 40 mg PO DAILY 30 Days Qty: 30 RF: 11 Adult Probiotic 3 billion cell capsule 3,000 mmu cells PO DAILY 30 Days Qty: 30 RF: 5 nitroglycerin 0.4 mg tablet, sublingual 0.4 mg SUBLINGUAL Q5M PRN (Reason: chest pain) Qty: 14 RF: 0 ondansetron HCl [Zofran] 4 mg tablet 4 mg PO Q8H 30 Days Qty: 90 RF: 1 pantoprazole 40 mg tablet,delayed release (DR/EC) 40 mg PO DAILY 30 Days Qty: 30 RF: 5 Zenpep 5,000-17,000- 24,000 unit capsule,delayed release(DR/EC) 1 cap PO TID 30 Days Qty: 90 RF: 2 vancomycin 125 mg capsule 125 mg PO QID 10 Days Qty: 40 RF: 0 Fluarix Quad (PF) 60 mcg (15 mcg x 4)/0.5 mL syringe 0.5 ml IM ONCE Qty: 0.5 RF: 0 Symbicort 160-4.5 mcg/actuation HFA aerosol inhaler 2 inh INHALATION Q12H Qty: 10.2 RF: 2 sertraline 50 mg tablet 50 mg PO DAILY 30 Days Qty: 30 RF: 2 clopidogrel 75 mg tablet 75 mg PO DAILY 30 Days Qty: 30 RF: 2 Levemir FlexTouch U-100 Insuln 100 unit/mL (3 mL) insulin pen 15 unit SUBCUT DAILY 30 Days Qty: 15 RF: 2 tamsulosin 0.4 mg capsule 0.4 mg PO DAILY 30 Days Qty: 30 RF: 2 cyclobenzaprine 5 mg tablet 10 mg PO TID MDD 6 tabs PRN (Reason: muscle spasm) Qty: 30 RF: 1 furosemide 40 mg tablet 40 mg PO BID 30 Days Qty: 60 RF: 2 gabapentin 300 mg capsule 300 mg PO TID 30 Days Qty: 90 RF: 2 isosorbide mononitrate 30 mg tablet extended release 24 hr 30 mg PO QAM 30 Days Qty: 30 RF: 2 clonazepam 0.5 mg tablet 0.5 mg PO DAILY PRN (Reason: anxiety) 30 Days Qty: 30 RF: 0 potassium chloride 20 mEq tablet extended release 20 meq PO TID 30 Days Qty: 90 RF: 2 ferrous sulfate 325 mg (65 mg iron) tablet 325 mg PO DAILY 30 Days Qty: 30 RF: 2 Novolog Flexpen U-100 Insulin 100 unit/mL (3 mL) insulin pen See Rx Instructions .ROUTE .COMPLEX MDD 30 units RF: 0 Hold Instructions: Home Medication placed on hold at Doctor's office Discharge Orders: Discharge Order (Routine); Ordered 05/14/20 Ordered By: Martin Jaimes Referrals: Silvana Nieves MD [Primary Care Provider] - Discharge Diet: Advance as tolerated Discharge Activity: Resume usual activity Patient Instructions: Fall Prevention (ED), Pneumonia (ED) Discharge Date/Time: 05/14/20 21:57 Coding Level of Care Code ED Pharmacy Benefit Manager for Chg Fwd
[2020-05-14 16:01] LABS: Basophils # 0.1 10^3/uL (0.0-0.1); Basophils % 0.7 %; Eosinophils % 0.2 %; Hematocrit 25.8 % (42.0-52.0); Hemoglobin 8.6 g/dL (11.7-16.6); Lymphocytes # 2.2 10^3/uL (0.8-4.8); Lymphocytes % 25.1 %; Mean Corpuscular HGB Conc 33.3 g/dL (30.0-36.0); Mean Corpuscular Hemoglobin 30.6 pg (28.0-34.0); Mean Corpuscular Volume 91.8 fL (80-94); Mean Platelet Volume 11.3 fL (7.4-10.4); Monocytes # 0.6 10^3/uL (0.2-0.9); Monocytes % 6.4 %; Neutrophils # 5.84 10^3/uL (1.8-7.7); Neutrophils % 67.3 %; Nucleated Red Blood Cells % 0 %; Platelet Count 178 10^3/cmm (130-400); Red Blood Count 2.81 10^6/uL (4.1-5.3); White Blood Count 8.7 10^3/uL (4.0-10.0)
[2020-05-14 16:22] LABS: Alanine Aminotransferase 46 U/L (0-41); Alkaline Phosphatase 310 IU/L (40-130); Anion Gap 12.4 (5-19); Aspartate Amino Transferase 90 U/L (0-40); Blood Urea Nitrogen 15 mg/dL (6-20); Calcium 8.2 mg/dL (8.5-10.5); Carbon Dioxide 27 mmol/L (22-29); Chloride 98 mmol/L (98-107); Creatine Phosphokinase 83 U/L (39-308); Globulin 3.7 g/dL (1.3-4.6); Glomerular Filtration Rate 138.9 mL/min (90-130); Glucose 87 mg/dL (65-115); Lipase 4 U/L (13-60); Osmolality Calculated 278 mOsm/kg (285-295); Potassium 3.4 mmol/L (3.5-5.1); Sodium 134 mmol/L (136-145); Total Bilirubin 0.5 mg/dL (0.15-1.2); Total Protein 6.7 g/dL (6.6-8.7); Troponin(5th) Baseline 97 ng/L (0-15)
[2020-05-14 16:26] LABS: Ketone (Acetest) Serum Negative (Negative)
--- NOTE | 2020-05-14 17:26 | ECG_ITS ---
[facility] Test Date: 2020-05-14 Pat Name: Miguel Kuhn Department: Room: Gender: Male Cigar Inspector: : 1965 Requested By: Papito Gomez Order Number: [id number] Delgado MD: Maria Elena Bolaños M.D. Measurements Intervals [place] Rate: 90 P: -52 IN: 167 QRS: 74 QRSD: 96 T: 64 QT: 386 QTc: 474 Interpretive Statements SINUS RHYTHM MODERATE ST DEPRESSION [0.05+ mV ST DEPRESSION] Compared to ECG 05/14/2020 16:05:57 ST (T wave) deviation now present Electronically Signed On 05-14-2020 20:14:55 CDT by Maria Elena Bolaños M.D. [email or web address] Managementtrace regional hospitalGruppo MutuiOnlinecoshocton regional [facility] center.Prelert/store/OM/[id number]/[email or web address]/[id number]
--- NOTE | 2020-05-14 17:48 | CTR_ITS ---
PROCEDURE INFORMATION: Exam: CT Abdomen And Pelvis With Contrast Exam date and time: 05/14/2020 7:55 PM Age: 55 years old Clinical indication: Other: Diarrhea, 100 lb weight loss; Abdominal pain; Localized; Left; Additional info: Unexplained weight loss - abnormal lfts TECHNIQUE: Imaging protocol: Computed tomography of the abdomen and pelvis with intravenous contrast. Radiation optimization: All CT scans at this facility use at least one of these dose optimization techniques: automated exposure control; mA and/or kV adjustment per patient size (includes targeted exams where dose is matched to clinical indication); or iterative reconstruction. Contrast material: OMNI 300; Contrast volume: 75 ml; Contrast route: INTRAVENOUS (IV); COMPARISON: CT abdomen pelvis w con* [id number] 03/19/2019 6:44 PM RADIATION DOSE METRICS: Total DLP (mGy-cm): 209.94 FINDINGS: Lungs: Nonspecific bibasilar patchy opacity is present, consistent with atelectasis, edema, or pneumonia. Liver: Unremarkable.No mass. Gallbladder and bile ducts: There is no common bile duct dilation. The gallbladder is not visualized presumed to be from prior cholecystectomy. Pancreas: The pancreas is atrophic with scattered small calcifications compatible with sequela of chronic pancreatitis. Spleen: Normal. No splenomegaly. Adrenals: Normal. No mass. Kidneys and ureters: There is no evidence of hydronephrosis. There is no evidence of renal calcifications. Stomach and bowel: There is no evidence of intestinal perforation or obstruction. There is no evidence of colitis/diverticulitis. There is moderately excessive colonic stool content. The stomach is very distended with a large amount of food/secretions and fluid. There is an abrupt caliber change in the 2nd portion the duodenum but no definite mass or site of obstruction is identified. The loops of small bowel are unremarkable. Appendix: No evidence of appendicitis. Intraperitoneal space: Unremarkable. No free air. No significant fluid collection. Vasculature: The aorta demonstrates moderate atherosclerotic calcification. Lymph nodes: Unremarkable.No enlarged lymph nodes. Urinary bladder: There is nonspecific bladder wall thickening. This may be related to incomplete distention. Reproductive: Unremarkable as visualized. Bones/joints: Unremarkable. No acute fracture. Soft tissues: There is diffuse induration of the subcutaneous fat and mesenteric fat compatible with anasarca type changes. CT/CT abdomen pelvis w con* [id number] IMPRESSION: 1. The stomach is very distended with a large amount of food/secretions and fluid. There is an abrupt caliber change in the 2nd portion the duodenum but no definite mass or site of obstruction is identified. 2. No mass or adenopathy. The liver has an appropriate appearance. No pathologic adenopathy. 3. Nonspecific bibasilar patchy opacity is present, consistent with atelectasis, edema, or pneumonia. 4. There is diffuse induration of the subcutaneous fat and mesenteric fat compatible with anasarca type changes. Radiation Dose CTDIVOL = (mGy): DLP = 209.94 (mGy-cm)
[2020-05-14 18:29] LABS: Hepatitis A Antibody IgM Non-Reactive (Nonreactive); Hepatitis B Core IgM Non-Reactive (Nonreactive); Hepatitis B Surface Antigen Non-Reactive (Nonreactive); Hepatitis C Virus Antibody Non-Reactive (Nonreactive)
[2020-05-14 19:00] LABS: Add Urine Microscopic? YES; Bilirubin Urine Neg (Negative); Blood Urine 2+ (Negative); Glucose Urine UA Norm (Normal); Ketones Urine Negative (Negative); Leukocyte Esterase Urine 1+ (Negative); Nitrate Urine Negative (Negative); Protein Urine Neg (Negative); Specific Gravity, Urine 1.015 (1.005-1.030); Urine Appearance Hazy (CLEAR); Urine Color Yellow (Yellow); Urobilinogen Urine Norm (Negative); pH Urine 5 (5-7)
[2020-05-14 19:26] VITALS: BP 144/82; PULSE 90; RESP 18; O2SAT 98
[2020-05-14 19:26] LABS: RBC Urine 0-4 /hpf (0-2)
[2020-05-14 19:27] LABS: Add Urine Culture? Yes; Bacteria Urine TRACE /hpf; Calcium Oxalate Crystals Urine TOO NUMEROUS TO CNT /hpf; Squamous Epithelial Cell Urine 0-4 /hpf (0-5)
[2020-05-14 19:50] LABS: SARS Covid-2 Antigen Negative (Negative)
--- NOTE | 2020-05-14 20:09 | ECG_ITS ---
[facility] Test Date: 2020-05-14 Pat Name: Miguel Kuhn Department: Room: Gender: Male Adult Care Provider: : 1965 Requested By: Martin Jaimes Order Number: [id number] Delgado MD: Maria Elena Bolaños M.D. Measurements Intervals [place] Rate: 87 P: 27 AL: 133 QRS: 72 QRSD: 102 T: 44 QT: 393 QTc: 475 Interpretive Statements SINUS RHYTHM NONSPECIFIC ST & T-WAVE ABNORMALITY Compared to ECG 05/14/2020 18:57:44 T-wave abnormality now present ST (T wave) deviation no longer present Electronically Signed On 05-14-2020 21:09:22 CDT by Maria Elena Bolaños M.D. [email or web address]/store/[id number]
[2020-05-14 20:31] VITALS: RESP 18; O2SAT 98
[2020-05-14] MEDS: HYDROmorphone 1 mg/mL INJ 1 mL IVP (20:31)
[2020-05-14] MEDS: iohexol 300 mg/mL 100 mL Btl IV (20:42)
[2020-05-14 21:12] LABS: Troponin(5th) Baseline 88 ng/L (0-15)
--- NOTE | 2020-05-14 21:26 | ECG_ITS ---
Test Date: 2020-05-14 Pat Name: Miguel Kuhn Department: Room: Gender: Male Work Order Clerk: : 1965 Requested By: Papito Gomez Order Number: [id number] Delgado MD: Maria Elena Bolaños M.D. Measurements Intervals [place] Rate: 59 P: 44 VT: 122 QRS: 57 QRSD: 81 T: 43 QT: 435 QTc: 433 Interpretive Statements SINUS BRADYCARDIA WITH MARKED SINUS ARRHYTHMIA NONSPECIFIC T-WAVE ABNORMALITY Compared to ECG 05/14/2020 18:57:44 T-wave abnormality now present Sinus rhythm no longer present ST (T wave) deviation no longer present Electronically Signed On 05-15-2020 12:58:09 CDT by Maria Elena Bolaños M.D. [email or web address].Reble/store/[id number] f
[2020-05-14 21:56] VITALS: BP 150/96; PULSE 88; RESP 16; O2SAT 100
== END 2020-05-14 21:57 | disposition home or self-care (01) ==
PROVIDERS: Family Medicine; Emergency Provider Emergency Medicine; PCP Family Medicine
DX: J18.9 Pneumonia, unspecified organism (principal); Z79.82 Long term (current) use of aspirin; Z79.02 Long term (current) use of antithrombotics/antiplatelets; Z79.4 Long term (current) use of insulin; I25.10 Atherosclerotic heart disease of native coronary artery without angina pectoris; I11.0 Hypertensive heart disease with heart failure; I50.9 Heart failure, unspecified; J44.9 Chronic obstructive pulmonary disease, unspecified; E11.42 Type 2 diabetes mellitus with diabetic polyneuropathy; F17.210 Nicotine dependence, cigarettes, uncomplicated
CPT/HCPCS: 12345; 70450; 71045; 72131; 74177; 80053; 80074; 81001; 82009; 82550; 83605; 83690; 84484; 85025; 87086; 87426; 93005; 96374; 96375; 99284; J1170; Q9967

== ENCOUNTER 2020-06-05 17:40 | Emergency (ER) | payer MEDICAID, SELFPAY ==
[2020-06-05 17:46] VITALS: BP 102/69; PULSE 81; RESP 20; TEMP 35.9; O2SAT 100; BMI 18.2
--- NOTE | 2020-06-05 17:55 | ECG_ITS ---
[facility] Test Date: 2020-06-05 Pat Name: Miguel Kuhn Department: Room: Gender: Male Conflict Resolution Professional: : 1965 Requested By: Martin Jaimes Order Number: [id number] Delgado MD: Costa Liz M.D. Measurements Intervals [place] Rate: 80 P: 78 [place]: 176 QRS: 81 QRSD: 112 T: 259 QT: 395 QTc: 458 Interpretive Statements SINUS RHYTHM WITH SINUS ARRHYTHMIA Compared to ECG 05/14/2020 20:59:54 T-wave abnormality no longer present Electronically Signed On 06-07-2020 20:13:36 AFTER SCHOOL PROGRAM DIRECTOR by Costa Liz M.D. [email or web address] [email or web address] medical [email or web address] [email or web address]/[id number] f
--- NOTE | 2020-06-05 17:55 | XR_ITS ---
WS: [id number] Portable AP upright chest, 06/05/2020 Clinical Data: cp Comparison: Portable chest, 05/14/2020. Findings: No nodules, masses or effusions are seen. The heart is normal. The pulmonary vascularity is not increased. No pneumonia or pneumothorax is seen. The diaphragms are flattened. The aortic arch a nd descending aorta show minimal calcification and tortuosity. XR/XR chest 1V portable [id number] Impression: Atherosclerosis and hyperinflation.
--- NOTE | 2020-06-05 18:05 | ED_ITS ---
HPI - Chest Pain General: Chief Complaint: Chest Pain Stated Complaint: CP Time Seen by Provider: 06/05/20 17:56 Source: patient Mode of arrival: ambulatory Limitations: no limitations History of Present Illness: HPI narrative: 55-year-old male states has been having chest pain over the last 3 days. He states the pain is been a sharp pain. Denies any shortness of breath and denies any worsening improving factors. States pain is currently a 4 out of 10. He is currently in no distress. He has had multiple heart attacks and had a stent placed in October. complaint: chest pain Associated symptoms: Deny abdominal pain, dyspnea, fever(s), nausea or vomiting Review of Systems Const: Denies: fever(s), chills, body aches or change in appetite Eyes: Denies: blurry vision or eye discomfort ENMT: Denies: throat pain or dental pain Card: Reports: chest pain Resp: Denies: dyspnea GI: Denies: abdominal pain, nausea, vomiting or diarrhea : Denies: dysuria Musc: Denies: neck pain or back pain Skin/Breast: Denies: rash Neuro: Denies: headache(s) Psych: Denies: depression Oumar/Lymph: Denies: easy bruising All/Imm: Denies: urticaria PFSH ED PFSH: Medical History (Updated 06/05/20 @ 22:34 by Martin Jaimes MD) Anemia BPH (benign prostatic hyperplasia) Follows up with Dr. Bryant Bladder outlet obstruction CAD (coronary artery disease) CHF (congestive heart failure) EF 40% Chronic back pain Chronic pancreatitis Secondary to alcoholism Constipation COPD (chronic obstructive pulmonary disease) LIZZIE (generalized anxiety disorder) GERD (gastroesophageal reflux disease) Hx of hypokalemia Hypertension Peripheral neuropathy Presence of pancreatic duct stent Type 2 diabetes mellitus Surgical History H/O cardiac catheterization Recent stent at [place] 2 months ago Stented coronary artery Family History Denies family history of Lung disease Hypertension Social History Smoking and tobacco status: current every day smoker cigarettes Alcohol intake: former Household members: family and other Details: Takes care of his father 87 years old Housing: House Physical Exam Const: COMMON NORMALS: no acute distress, patient oriented x3 and healthy appearing HENMT: COMMON NORMALS: normocephalic and atraumatic HEAD & SCALP: normocephalic and atraumatic Eye: COMMON NORMALS: Equal, round and reactive pupils present and EOMs intact bilaterally PUPIL: Yes Equal, round and reactive pupils present Neck/C-Spine: COMMON NORMALS: full ROM and supple Chest: COMMONS NORMALS: normal inspection of the chest and normal palpation of entire chest wall Resp: COMMON NORMALS: normal respiratory effort, No retractions, No use of accessory muscles and clear to auscultation bilaterally AUSCULTATION: clear to auscultation bilaterally Cardio: COMMON NORMALS: regular rate, regular rhythm and No murmurs present (Cardio) RATE: regular rate RHYTHM: regular rhythm GI: COMMON NORMALS: Normal to inspection, nondistended, normoactive bowel sounds present, Soft to palpation, non-tender and no masses PALPATION: Yes Soft to palpation Extremity: COMMON NORMALS: normal to inspection and full ROM Neuro: COMMON NORMALS: patient oriented x3, moves all extremities and no focal motor deficits Psych: COMMON NORMALS: mental status grossly normal, Normal thought process present and cooperative THOUGHT PROCESS: Normal thought process present Skin: COMMON NORMALS: no rashes or lesions noted and no wounds GENERAL SKIN EXAM: no rashes or lesions noted Course Vital Signs: Vital signs: Vital Signs Temperature 96.6 F L 06/05/20 17:46 Pulse Rate 73 06/05/20 19:53 Respiratory Rate 12 06/05/20 19:53 Blood Pressure 86/63 06/05/20 19:53 Pulse Oximetry 100 06/05/20 19:53 MDM - Chest Pain MDM Narrative: Medical decision making narrative: Patient presents with chest pain that is atypical in nature. Patient's initial blood pressure was inaccurate as he had a cuff on that was way too large. I change his cuff out and his blood pressure is now 106/64. His 2-hour troponin showed a decrease. His troponins are chronically elevated looking at past troponins. He has been chest pain-free here and has no signs of acute coronary syndrome. Patient has no signs of pulmonary embolism. He is stable for discharge is to follow-up his PCP in 3 to 5 days and return if worsening. He understands and agrees to plan. Lab Data: Labs: Lab Results 06/05/20 06/05/20 06/05/20 Range/Units 18:34 18:34 18:34 WBC 7.2 (4.0-10.0) 10^3/ uL RBC 2.48 L (4.1-5.3) 10^6/u L Hgb 7.9 L (11.7-16.6) g/dL Hct 24.0 L (42.0-52.0) % MCV 96.8 H (80-94) fL MCH 31.9 (28.0-34.0) pg MCHC 32.9 (30.0-36.0) g/dL RDW 14.8 (12.1-15.1) % Plt Count 179 (130-400) 10^3/c mm MPV 11.9 H (7.4-10.4) fL Neut % (Auto) 69.8 % Lymph % (Auto) 24.1 % Bremer % (Auto) 4.9 % Eos % (Auto) 0.3 % Baso % (Auto) 0.6 % Neut # (Auto) 5.02 (1.8-7.7) 10^3/u L Lymph # (Auto) 1.7 (0.8-4.8) 10^3/u L Bremer # (Auto) 0.4 (0.2-0.9) 10^3/u L Eos # (Auto) 0.0 (0.0-0.8) 10^3/u L Baso # (Auto) 0.0 (0.0-0.1) 10^3/u L Nucleated RBC % (a uto) 0 % Nucleated RBCs # 0.0 /100WBC Sodium 130 L (136-145) mmol/L Potassium 3.3 L (3.5-5.1) mmol/L Chloride 90 L (98-107) mmol/L Carbon Dioxide 33 H (22-29) mmol/L Anion Gap 10.3 (5-19) BUN 12 (6-20) mg/dL Creatinine 0.6 L (0.7-1.2) mg/dL GFR Calculation 138.9 H (90-130) mL/min Glucose 162 H (65-115) mg/dL Calculated Osmolal ity 273 L (285-295) mOsm/k g Calcium 8.2 L (8.5-10.5) mg/dL Total Bilirubin 0.8 (0.15-1.2) mg/dL AST 44 H (0-40) U/L ALT 50 H (0-41) U/L Alkaline Phosphata se 398 H (40-130) IU/L Troponin T Baselin e 137 H* (0-15) ng/L Troponin T 120 Min torres martinez (0-15) ng/L Delta Troponin T (0-10) ABS# Total Protein 6.6 (6.6-8.7) g/dL Albumin 3.0 L (3.5-5.2) g/dL Globulin 3.6 (1.3-4.6) g/dL 06/05/20 Range/Units 21:15 WBC (4.0-10.0) 10^3/ uL RBC (4.1-5.3) 10^6/u L Hgb (11.7-16.6) g/dL Hct (42.0-52.0) % MCV (80-94) fL MCH (28.0-34.0) pg MCHC (30.0-36.0) g/dL RDW (12.1-15.1) % Plt Count (130-400) 10^3/c mm MPV (7.4-10.4) fL Neut % (Auto) % Lymph % (Auto) % Bremer % (Auto) % Eos % (Auto) % Baso % (Auto) % Neut # (Auto) (1.8-7.7) 10^3/u L Lymph # (Auto) (0.8-4.8) 10^3/u L Bremer # (Auto) (0.2-0.9) 10^3/u L Eos # (Auto) (0.0-0.8) 10^3/u L Baso # (Auto) (0.0-0.1) 10^3/u L Nucleated RBC % (a uto) % Nucleated RBCs # /100WBC Sodium (136-145) mmol/L Potassium (3.5-5.1) mmol/L Chloride (98-107) mmol/L Carbon Dioxide (22-29) mmol/L Anion Gap (5-19) BUN (6-20) mg/dL Creatinine (0.7-1.2) mg/dL GFR Calculation (90-130) mL/min Glucose (65-115) mg/dL Calculated Osmolal ity (285-295) mOsm/k g Calcium (8.5-10.5) mg/dL Total Bilirubin (0.15-1.2) mg/dL AST (0-40) U/L ALT (0-41) U/L Alkaline Phosphata se (40-130) IU/L Troponin T Baselin e (0-15) ng/L Troponin T 120 Min torres martinez 122.8 H (0-15) ng/L Delta Troponin T -14.2 L (0-10) ABS# Total Protein (6.6-8.7) g/dL Albumin (3.5-5.2) g/dL Globulin (1.3-4.6) g/dL Imaging Data^: CXR: Attestation: I personally reviewed and interpreted this imaging study as follows: My impression: no acute abnormality EKG Data^: EKG 1: Attestation: I personally reviewed and interpreted this EKG as follows: EKG interpretation date: 06/05/20 Interpretation: nsr hr [address] elevation qrs 112 qtc 431 EKG 2: Attestation: I personally reviewed and interpreted this EKG as follows: EKG interpretation date: 06/05/20 EKG interpretation time: 19:59 Interpretation: nsr hr [address] or t wave abnormalities qrs 109 qtc 457 Discharge Plan Discharge Patient Disposition: Home Clinical Impression: Chest pain Qualifiers: Chest pain type: unspecified Qualified Code(s): R07.9 - Chest pain, unspecified Condition: Stable Prescriptions: No Action aspirin 81 mg tablet,delayed release (DR/EC) 81 mg PO DAILY 30 Days Qty: 30 RF: 11 atorvastatin 40 mg tablet 40 mg PO DAILY 30 Days Qty: 30 RF: 11 Adult Probiotic 3 billion cell capsule 3,000 mmu cells PO DAILY 30 Days Qty: 30 RF: 5 nitroglycerin 0.4 mg tablet, sublingual 0.4 mg SUBLINGUAL Q5M PRN (Reason: chest pain) Qty: 14 RF: 0 ondansetron HCl [Zofran] 4 mg tablet 4 mg PO Q8H 30 Days Qty: 90 RF: 1 pantoprazole 40 mg tablet,delayed release (DR/EC) 40 mg PO DAILY 30 Days Qty: 30 RF: 5 Zenpep 5,000-17,000- 24,000 unit capsule,delayed release(DR/EC) 1 cap PO TID 30 Days Qty: 90 RF: 2 Fluarix Quad 1088-8882 (PF) 60 mcg (15 mcg x 4)/0.5 mL syringe 0.5 ml IM ONCE Qty: 0.5 RF: 0 Symbicort 160-4.5 mcg/actuation HFA aerosol inhaler 2 inh INHALATION Q12H Qty: 10.2 RF: 2 sertraline 50 mg tablet 50 mg PO DAILY 30 Days Qty: 30 RF: 2 clopidogrel 75 mg tablet 75 mg PO DAILY 30 Days Qty: 30 RF: 2 Levemir FlexTouch U-100 Insuln 100 unit/mL (3 mL) insulin pen 15 unit SUBCUT DAILY 30 Days Qty: 15 RF: 2 tamsulosin 0.4 mg capsule 0.4 mg PO DAILY 30 Days Qty: 30 RF: 2 cyclobenzaprine 5 mg tablet 10 mg PO TID MDD 6 tabs PRN (Reason: muscle spasm) Qty: 30 RF: 1 furosemide 40 mg tablet 40 mg PO BID 30 Days Qty: 60 RF: 2 gabapentin 300 mg capsule 300 mg PO TID 30 Days Qty: 90 RF: 2 isosorbide mononitrate 30 mg tablet extended release 24 hr 30 mg PO QAM 30 Days Qty: 30 RF: 2 clonazepam 0.5 mg tablet 0.5 mg PO DAILY PRN (Reason: anxiety) 30 Days Qty: 30 RF: 0 potassium chloride 20 mEq tablet extended release 20 meq PO TID 30 Days Qty: 90 RF: 2 ferrous sulfate 325 mg (65 mg iron) tablet 325 mg PO DAILY 30 Days Qty: 30 RF: 2 (DME) pen needle, diabetic [Comfort EZ Pen Sawyer] 31 gauge x 5/16 needle See Rx Instructions .ROUTE .MEDSUPPLY Qty: 100 RF: 2 insulin aspart U-100 [Novolog Flexpen U-100 Insulin] 100 unit/mL (3 mL) insulin pen See Rx Instructions .ROUTE .COMPLEX MDD 30 units RF: 0 Hold Instructions: Home Medication placed on hold at Doctor's office Discharge Orders: Discharge Order (Routine); Ordered 06/05/20 Ordered By: Martin Jaimes Referrals: Silvana Nieves MD [Primary Care Provider] - 1-3 days Discharge Diet: Advance as tolerated Discharge Activity: Resume usual activity Patient Instructions: Chest Pain (ED) Coding Level of Care Code ED Official Court Interpreter for Chg Fwd Exam Comprehensive
[2020-06-05 18:37] VITALS: BP 126/81; PULSE 78; RESP 16; O2SAT 98
[2020-06-05 18:49] LABS: Basophils % 0.6 %; Eosinophils % 0.3 %; Hemoglobin 7.9 g/dL (11.7-16.6); Lymphocytes # 1.7 10^3/uL (0.8-4.8); Lymphocytes % 24.1 %; Mean Corpuscular HGB Conc 32.9 g/dL (30.0-36.0); Mean Corpuscular Hemoglobin 31.9 pg (28.0-34.0); Mean Corpuscular Volume 96.8 fL (80-94); Mean Platelet Volume 11.9 fL (7.4-10.4); Monocytes # 0.4 10^3/uL (0.2-0.9); Monocytes % 4.9 %; Neutrophils # 5.02 10^3/uL (1.8-7.7); Neutrophils % 69.8 %; Nucleated Red Blood Cells % 0 %; Platelet Count 179 10^3/cmm (130-400); Red Blood Count 2.48 10^6/uL (4.1-5.3); Red Cell Distribution Width 14.8 % (12.1-15.1); White Blood Count 7.2 10^3/uL (4.0-10.0)
[2020-06-05 18:51] VITALS: RESP 16
[2020-06-05] MEDS: morphine 4 mg/mL SDV 1 mL IVP (18:51)
[2020-06-05] MEDS: ondansetron 2 mg/ML SDV 2 mL 4 MG IVP (18:51)
[2020-06-05 19:53] VITALS: BP 86/63; PULSE 73; RESP 12; O2SAT 100
[2020-06-05 19:55] LABS: Alanine Aminotransferase 50 U/L (0-41); Alkaline Phosphatase 398 IU/L (40-130); Blood Urea Nitrogen 12 mg/dL (6-20); Calcium 8.2 mg/dL (8.5-10.5); Carbon Dioxide 33 mmol/L (22-29); Chloride 90 mmol/L (98-107); Globulin 3.6 g/dL (1.3-4.6); Glomerular Filtration Rate 138.9 mL/min (90-130); Glucose 162 mg/dL (65-115); Osmolality Calculated 273 mOsm/kg (285-295); Sodium 130 mmol/L (136-145); Total Bilirubin 0.8 mg/dL (0.15-1.2); Total Protein 6.6 g/dL (6.6-8.7)
--- NOTE | 2020-06-05 19:55 | ECG_ITS ---
[facility] Test Date: 2020-06-05 Pat Name: Miguel Kuhn Department: Room: Gender: Male Director Of Design: : 1965 Requested By: Martin Jaimes Order Number: [id number] Delgado MD: Costa Liz M.D. Measurements Intervals [place] Rate: 72 P: 74 [place]: 197 QRS: 82 QRSD: 109 T: 126 QT: 433 QTc: 475 Interpretive Statements SINUS RHYTHM Compared to ECG 06/05/2020 17:43:57 Sinus arrhythmia no longer present Myocardial infarct finding no longer present Electronically Signed On 06-07-2020 20:24:07 MERGERS AND ACQUISITIONS MANAGER by Costa Liz M.D. [email or web address] [email or web address]/store/[id number]
[2020-06-05 20:02] LABS: Troponin(5th) Baseline 137 ng/L (0-15)
[2020-06-05 20:07] LABS: Anion Gap 10.3 (5-19); Aspartate Amino Transferase 44 U/L (0-40); Potassium 3.3 mmol/L (3.5-5.1)
--- NOTE | 2020-06-05 20:09 | PC.NURSE ---
EKG done at 1954 and shown to ER doctor
[2020-06-05] MEDS: sodium chloride 0.9% 500 ML 999 ML IV (21:32)
[2020-06-05 22:25] LABS: Troponin 5 2HR 122.8 ng/L (0-15); Troponin 5 2HR Delta -14.2 ABS# (0-10)
[2020-06-05 23:03] VITALS: BP 86/63; PULSE 73; RESP 12; O2SAT 100
--- NOTE | 2020-06-06 08:45 | PC.SOCIAL ---
Spoke with the patients brother about options of care. I mentioned going to SNF, and mentioned In Home services. The patient is not currently on disability but has applied. He does have Medicaid. I also encouraged the brother to see if the patient would be willing to do Medical Advanced Directives/DPOA paperwork for future purposes. HE stated that it wouldn't be a bad idea. I told him next time his brother comes into hospital to mention that he would like to do that if this is something he would like to do.
== END 2020-06-05 23:03 | disposition home or self-care (01) ==
PROVIDERS: Emergency Provider Emergency Medicine; PCP Family Medicine
DX: R07.9 Chest pain, unspecified (principal); Z79.82 Long term (current) use of aspirin; Z79.02 Long term (current) use of antithrombotics/antiplatelets; Z79.4 Long term (current) use of insulin; I25.10 Atherosclerotic heart disease of native coronary artery without angina pectoris; I11.0 Hypertensive heart disease with heart failure; I50.9 Heart failure, unspecified; J44.9 Chronic obstructive pulmonary disease, unspecified; E11.42 Type 2 diabetes mellitus with diabetic polyneuropathy; F17.210 Nicotine dependence, cigarettes, uncomplicated
CPT/HCPCS: 12345; 71045; 80053; 84484; 85025; 93005; 96374; 96375; 99282; 99283; J2270; J2405; J7040

== ENCOUNTER 2020-06-15 04:25 | Inpatient (IN) | payer MEDICAID, SELFPAY ==
[2020-06-15] VITALS (58 sets, daily range): BP systolic 78–175; BP diastolic 54–116; PULSE 91–107; RESP 10–24; TEMP 36.3–37; O2SAT 95–100; BMI 18.3
--- NOTE | 2020-06-15 04:30 | PM.HP ---
Providers/Chief Complaint Admitting Physician: Sandro Mena MD Primary Care Provider: Silvana Nieves MD History of Present Illness Miguel Kuhn is 55-year-old male with a history of congestive heart failure, bladder outlet obstruction, double vessel coronary artery disease status post PTCA left circumflex/OM1, EF 55%, moderate aortic insufficiency, history of alcoholism, presented to [facility] ER in state of shock, initially systolic blood pressure was in 60s, they were not able to draw any blood at that time, dopamine drip was started along with IV fluids which improved his blood pressure, he received 2 units of O+blood before getting CBC, after 2 units his hemoglobin was 7.3, his blood glucose at the time of presentation was in 500s, nonacidotic, serum ketones negative, which improved after 3 L normal saline fluid resuscitation to 300s, patient mentation improved, patient remained on dopamine drip until midnight and then it was turned off. In the ER he experienced multiple episodes of emesis with subsequent development of hematemesis and melena. He has been having dark maroon bowel movements at the ER. [facility] ER physician asked patient to be transferred to our facility for GI bleed, recent shock and concern for DKA. I requested serum ketones level and ABG which were unremarkable. Of note, this patient was admitted in December for NSTEMI, had chest tube placement for 4 to 5 days for loculated exudative effusion, he was discharged home on Levaquin because a sputum culture grew Levaquin. Secondary to cachexia, malignancy and tuberculosis diagnoses were also being entertained. Review of previous labs: Cultures from pleural fluid did not grow any microorganisms, mycobacterial smear contain minimal volume so not reliable negative report, blood cultures stayed negative. Cytology from pleural fluid showed mild mixed inflammatory infiltrate cells without any evidence of dysplasia or malignancy On arrival in the ED today his blood pressure was 97/61 heart rate 100, Covid antigen was sent, he has started on normal saline fluid resuscitation, patient is awake alert oriented x3 GCS 15. Patient is able to tell me that today around afternoon he was trying to go towards the bathroom when he blacked out, his father found him on the floor and sent him to the [facility] ER. Patient is denying chest pain, shortness of breath before this event, no seizure-like activities. He is not sure why this happened. He is endorsing that for last 3 days he has been experiencing blood in his vomiting, he has been noticing coffee-ground emesis from his first episode, associated with abdominal pain mainly mid epigastric region and maroon color stool. At the time of my evaluation he is not complaining of active chest pain, headache, dysuria, his only complaint is midepigastric pain. His last dose of aspirin Plavix was this morning, his last alcoholic drink was in 2014, he is endorsing history of peptic ulcer disease, gastritis, gastric ulcers and taking a lot of ibuprofen on daily basis. He is not sure about the dosages but states he takes a lot of ibuprofen I have requested CT abdomen pelvis with contrast, After transfusion CBC white count 9.3, hemoglobin 7.3, platelet 82, creatinine 0.8 Sodium 134 Potassium 5.0 Bicarb 14 Total bilirubin 0.8 AST 623 ALT 161 Calcium 10.6 Albumin 2.4 BNP 11,000 ABG pH 7.50/CO2 29/PO2 95 on room air saturating 96%, serum ketones negative Review of Systems Const: Reports: body aches, change in appetite, change in weight, fatigue and malaise; Denies: fever(s) or chills Eyes: Denies: change in vision ENMT: Denies: throat pain Card: Reports: chest pain, syncope and dyspnea on exertion Resp: Reports: dyspnea GI: Reports: abdominal pain, nausea, vomiting, heartburn and melena : Denies: flank pain Musc: Denies: neck pain Skin/Breast: Reports: skin pain, new lesions and lesions Neuro: Reports: frequent falls and confusion Psych: Reports: depression Endo: Denies: polyuria Oumar/Lymph: Reports: easy bruising, easy bleeding and petechiae All/Imm: Denies: urticaria Medications/Allergies Home Medications Medication Instructions Recorded Confirmed Last Taken Type aspirin 81 mg tablet,delayed 81 mg PO DAILY 30 Days #30 tab 01/01/20 06/05/20 06/05/20 Rx release atorvastatin 40 mg tablet 40 mg PO DAILY 30 Days #30 tab 01/01/20 06/05/20 06/05/20 Rx insulin aspart U-100 [Novolog See Rx Instructions .ROUTE 01/21/20 06/05/20 06/05/20 History Flexpen U-100 Insulin] .COMPLEX MDD 30 units lactobacillus combination no.8 3 3,000 mmu cells PO DAILY 30 Days 01/31/20 06/05/20 06/05/20 Rx billion cell capsule #30 cap uprcby-ivpqstjr-sutdoem 1 cap PO TID 30 Days #90 cap 03/27/20 06/05/20 06/05/20 Rx 5,000-17,000-24,000 unit capsule, delayed rel nitroglycerin 0.4 mg sublingual 0.4 mg SUBLINGUAL Q5M PRN #14 tab 03/27/20 06/05/20 06/05/20 Rx tablet ondansetron HCl 4 mg tablet 4 mg PO Q8H 30 Days #90 tab 03/27/20 06/05/20 Unknown Rx pantoprazole 40 mg tablet,delayed 40 mg PO DAILY 30 Days #30 tab 03/27/20 06/05/20 06/05/20 Rx release budesonide-formoterol HFA 160 2 inh INHALATION Q12H #10.2 gm 05/06/20 06/05/20 06/05/20 Rx mcg-4.5 mcg/actuation aerosol inhaler clonazepam 0.5 mg tablet 0.5 mg PO DAILY PRN 30 Days #30 tab 05/06/20 06/05/20 06/05/20 Rx clopidogrel 75 mg tablet 75 mg PO DAILY 30 Days #30 tab 05/06/20 06/05/20 06/05/20 Rx cyclobenzaprine 5 mg tablet 10 mg PO TID PRN #30 tab MDD 6 tabs 05/06/20 06/05/20 Unknown Rx furosemide 40 mg tablet 40 mg PO BID 30 Days #60 tab 05/06/20 06/05/20 06/05/20 Rx gabapentin 300 mg capsule 300 mg PO TID 30 Days #90 cap 05/06/20 06/05/20 06/05/20 Rx insulin detemir U-100 100 unit/mL 15 unit SUBCUT DAILY 30 Days #15 ml 05/06/20 06/05/20 06/05/20 Rx (3 mL) subcutaneous pen isosorbide mononitrate 30 mg 30 mg PO QAM 30 Days #30 tab 05/06/20 06/05/20 06/05/20 Rx tablet,extended release 24 hr sertraline 50 mg tablet 50 mg PO DAILY 30 Days #30 tab 10/12/20 11/11/20 11/11/20 Rx tamsulosin 0.4 mg capsule 0.4 mg PO DAILY 30 Days #30 cap 05/06/20 06/05/20 06/05/20 Rx ferrous sulfate 325 mg (65 mg 325 mg PO DAILY 30 Days #30 tab 05/12/20 06/05/20 06/05/20 Rx iron) tablet potassium chloride 20 mEq 20 meq PO TID 30 Days #90 tab 05/12/20 06/05/20 06/05/20 Rx tablet,extended release pen needle, diabetic 31 gauge x #100 each 05/20/20 06/05/20 Unknown Rx 12/08 Allergies Allergy/AdvReac Type Severity Reaction Status Date / Time No Known Allergies Allergy Verified 06/05/20 17:48 PFSH Acute PFSH: Medical History Anemia BPH (benign prostatic hyperplasia) Follows up with Dr. Bryant Bladder outlet obstruction CAD (coronary artery disease) CHF (congestive heart failure) 55% EF Chronic back pain Chronic pain Chronic pancreatitis Secondary to alcoholism Constipation COPD (chronic obstructive pulmonary disease) Diabetic neuropathy LIZZIE (generalized anxiety disorder) GERD (gastroesophageal reflux disease) Hx of hypokalemia Hypertension Peripheral neuropathy Presence of pancreatic duct stent Sacral decubitus ulcer, stage II Type 2 diabetes mellitus Surgical History H/O cardiac catheterization Recent stent at [facility] 2 months ago Stented coronary artery Family History Denies family history of Lung disease Hypertension Social History Smoking and tobacco status: current every day smoker cigarettes Alcohol intake: former Household members: family and other Details: Takes care of his father 87 years old Housing: House Physical Exam Narrative: EXAM NARRATIVE: This is a very frail cachectic malnourished male Who is in right lateral position moaning in pain complaining of midepigastric pain Awake alert oriented x3 GCS 15 Able to mention above HPI Looks extremely dehydrated and pale EOMI, PERRLA Able to follow my commands and protect airways S1, S2 sinus tachycardia extremely dehydrated Abdomen tenderness in mid epigastric region, no overt signs of peritonitis, flat abdomen Lower extremity has multiple petechia bruises, lacerations and abrasions Right knee abrasion with mild purulent base of the wound Lower extremity without gangrene Cachectic malnourished appearance Patient is in distress A&P Assessment and plan (1) Acute blood loss anemia: Status: Acute (2) Alcoholism: Status: Acute (3) Hyperglycemia: Status: Acute (4) Hematemesis: Status: Acute (5) Melanotic stools: Status: Acute (6) Hypovolemic shock: Status: Acute Additional A&P Information Hypovolemic shock secondary to acute on chronic blood loss anemia Patient experiencing melanotic stool along hematemesis Status post [address] [facility], previous hemoglobin 7.9, currently he is at 7.3 with active melanotic stool Required dopamine for few hours along with fluid resuscitation at outside facility currently on normal saline N.p.o., Protonix 40 IV twice daily We will consult Dr. James for an EGD Acute on chronic macrocytic anemia B12 level 01/21/2026 and 39 Greater than 20 This most likely secondary to chronic alcoholism with acute onset most likely due to Priti-Gunderson tear versus alcohol induced gastritis Patient is also endorsing taking a lot of NSAIDs, is not able to tell me the dosages Will obtain CT abdomen pelvis with contrast Alcoholism We will keep him on CIWA protocol Check EtOH level Check magnesium level Abnormal transaminases secondary to alcoholic hepatosteatosis Hepatitis panel negative done a month ago Suboptimal control type 2 diabetes On arrival to the ER initial blood sugar 500 which improved to 300 after 2 L normal saline fluid resuscitation Serum ketones negative, I will keep him on normal saline for now, blood sugar checks every 6 hours Established coronary disease This year he had coronary artery stents placed left circumflex/OM1 Currently aspirin Plavix along statins on hold can resume after EGD as soon as possible Not complaining of active chest pain, EKG did not show ischemic infarct changes nonspecific T wave changes in lateral leads Obtain another EKG History of polysubstance abuse Previously his drug screen has been positive for opioids, amphetamine and marijuana Numerous calcium oxalate crystals noted as well along urine yeast Repeat drug screen today Full code N.p.o. DVT prophylaxis SCDs for now, On previous admission he had multiple pleural fluid studies done which did not show any malignancy, no positive cultures noted, Mycobacterium culture smear had inadequate volume, no bacteremia, he had exudative pleural effusion, received broad-spectrum antibiotics during that visit and was discharged on Levaquin Attestations Medical Necessity Statement*: Anticipating stay in the hospital course more than 2 midnights continued EGD diagnostic, ICU monitoring for recent episode of shock and management of hyperglycemia Time Spent in Patient Care: (>than 50% of time spent in counselling and/or direct pt care on unit). 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
--- NOTE | 2020-06-15 04:55 | ECG_ITS ---
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 Measurements Intervals [place] Rate: 102 P: 29 PA: 136 QRS: 81 QRSD: 99 T: 51 QT: 398 QTc: 519 Interpretive Statements SINUS TACHYCARDIA Compared to ECG 06/05/2020 19:59:15 Sinus rhythm no longer present Electronically Signed On 06-16-2020 19:19:13 BLAST HOLE DRILLER by Costa Liz M.D. [id number]
[2020-06-15 06:09] LABS: SARS Covid-2 Antigen Negative (Negative)
[2020-06-15 06:49] LABS: Glucose Point of Care 358 mg/dL (70-110)
[2020-06-15] MEDS: sodium chloride 0.9% 1,000 ML 75 ML IV (06:49)
[2020-06-15] MEDS: pantoprazole 40 mg SDV IVP (06:51)
--- NOTE | 2020-06-15 07:44 | PC.NURSE ---
admit into icu 8 while charting home meds found weedlike substance security called and given to them disposed of in needle box at this time
[2020-06-15 07:48] LABS: Basophils % 0.1 %; Lymphocytes % 13.8 %; Mean Corpuscular HGB Conc 31.7 g/dL (30.0-36.0); Mean Corpuscular Hemoglobin 29.7 pg (28.0-34.0); Mean Corpuscular Volume 93.5 fL (80-94); Mean Platelet Volume 13.2 fL (7.4-10.4); Monocytes # 0.4 10^3/uL (0.2-0.9); Monocytes % 2.7 %; Neutrophils # 11.86 10^3/uL (1.8-7.7); Neutrophils % 82.9 %; Nucleated Red Blood Cells % 0 %; Platelet Count 80 10^3/cmm (130-400); Red Blood Count 1.55 10^6/uL (4.1-5.3); Red Cell Distribution Width 17.6 % (12.1-15.1); White Blood Count 14.3 10^3/uL (4.0-10.0)
[2020-06-15 08:21] LABS: Hemoglobin 4.6 g/dL (11.7-16.6)
[2020-06-15 08:22] LABS: Hematocrit 14.5 % (42.0-52.0)
[2020-06-15 08:45] LABS: Alanine Aminotransferase 131 U/L (0-41); Albumin Level 2.5 g/dL (3.5-5.2); Alkaline Phosphatase 361 IU/L (40-130); Anion Gap 14.2 (5-19); Aspartate Amino Transferase 145 U/L (0-40); Blood Urea Nitrogen 39 mg/dL (6-20); Calcium 7.9 mg/dL (8.5-10.5); Carbon Dioxide 24 mmol/L (22-29); Chloride 103 mmol/L (98-107); Globulin 2.3 g/dL (1.3-4.6); Glomerular Filtration Rate 99.6 mL/min (90-130); Glucose 308 mg/dL (65-115); Magnesium 1.3 mg/dL (1.7-2.3); Osmolality Calculated 305 mOsm/kg (285-295); Potassium 4.2 mmol/L (3.5-5.1); Sodium 137 mmol/L (136-145); Total Bilirubin 0.9 mg/dL (0.15-1.2); Total Protein 4.8 g/dL (6.6-8.7)
--- NOTE | 2020-06-15 09:31 | PM.CONSULT ---
Providers/Reason For Consult Consulting Physican/Specialty*: General Surgery Leroy James MD Reason for Consult*: Hematemesis with melena and anemia. Attending Physician: Andrez Gill Primary Care Provider: Silvana Nieves MD History of Present Illness History of Present Illness Miguel Kuhn is a 55 year old male who was apparently accepted in transfer by the night hospitalist from [facility] with melena, hematemesis, and hypovolemic shock. The patient is alert but seemingly has a very poor memory and poor understanding of his medical history, but from what I can gather he started having trouble with hematemesis and melanotic stool 2 days ago. He takes Plavix, baby aspirin, and ibuprofen daily. He has been having frequent falls at home and apparently his father found him on the floor yesterday and sent him to [facility] emergency department. Because of his GI bleed, they wanted to transfer him to [place], although neither facility has a chemical production machine operator; both facilities only have general surgeons who do endoscopy. The patient originally had apparently told the hospitalist he has a history of peptic ulcer disease, but he denies knowing that with any certainty to me. He does have a significant history of drinking ethanol but says he has not had any significant to drink for a couple of years. He does take Plavix and baby aspirin daily. He tells me that he only takes one ibuprofen daily but has done that for years. He originally told me he last took all of these this morning but when I reminded him he was in the emergency department last night he agreed it must have been yesterday. Review of Systems General: Reports: 10 or more systems reviewed and unremarkable except in HPI and below and Other (Frequent falls at home) Const: Reports: body aches (Chronic); Denies: fever(s) Card: Reports: chest pain Resp: Reports: dyspnea GI: Reports: abdominal pain (Chronic) Oumar/Lymph: Reports: easy bruising Meds/Allergies Home Medications and Allergies Home Medications Medication Instructions Recorded Confirmed Last Taken Type aspirin 81 mg tablet,delayed 81 mg PO DAILY 30 Days #30 tab 01/01/20 06/15/20 06/05/20 Rx release atorvastatin 40 mg tablet 40 mg PO DAILY 30 Days #30 tab 01/01/20 06/15/20 06/05/20 Rx insulin aspart U-100 [Novolog See Rx Instructions .ROUTE 01/21/20 06/15/20 06/05/20 History Flexpen U-100 Insulin] .COMPLEX MDD 30 units lactobacillus combination no.8 3 3,000 mmu cells PO DAILY 30 Days 01/31/20 06/05/20 06/05/20 Rx billion cell capsule #30 cap [id number] 1 cap PO TID 30 Days #90 cap 03/27/20 06/15/20 06/05/20 Rx 5,000-17,000-24,000 unit capsule, delayed rel nitroglycerin 0.4 mg sublingual 0.4 mg SUBLINGUAL Q5M PRN #14 tab 03/27/20 06/05/20 06/05/20 Rx tablet ondansetron HCl 4 mg tablet 4 mg PO Q8H 30 Days #90 tab 03/27/20 06/05/20 Unknown Rx pantoprazole 40 mg tablet,delayed 40 mg PO DAILY 30 Days #30 tab 03/27/20 06/15/20 06/05/20 Rx release budesonide-formoterol HFA 160 2 inh INHALATION Q12H #10.2 gm 05/06/20 06/15/20 06/05/20 Rx mcg-4.5 mcg/actuation aerosol inhaler clonazepam 0.5 mg tablet 0.5 mg PO DAILY PRN 30 Days #30 tab 05/06/20 06/15/20 06/05/20 Rx clopidogrel 75 mg tablet 75 mg PO DAILY 30 Days #30 tab 05/06/20 06/15/20 06/05/20 Rx cyclobenzaprine 5 mg tablet 10 mg PO TID PRN #30 tab MDD 6 tabs 05/06/20 06/15/20 Unknown Rx furosemide 40 mg tablet 40 mg PO BID 30 Days #60 tab 05/06/20 06/15/20 06/05/20 Rx gabapentin 300 mg capsule 300 mg PO TID 30 Days #90 cap 05/06/20 06/15/20 06/05/20 Rx insulin detemir U-100 100 unit/mL 15 unit SUBCUT DAILY 30 Days #15 ml 05/06/20 06/15/20 06/05/20 Rx (3 mL) subcutaneous pen isosorbide mononitrate 30 mg 30 mg PO QAM 30 Days #30 tab 05/06/20 06/15/20 06/05/20 Rx tablet,extended release 24 hr sertraline 50 mg tablet 50 mg PO DAILY 30 Days #30 tab 05/06/20 06/15/20 06/05/20 Rx tamsulosin 0.4 mg capsule 0.4 mg PO DAILY 30 Days #30 cap 05/06/20 06/15/20 06/05/20 Rx ferrous sulfate 325 mg (65 mg 325 mg PO DAILY 30 Days #30 tab 05/12/20 06/15/20 06/05/20 Rx iron) tablet potassium chloride 20 mEq 20 meq PO TID 30 Days #90 tab 05/12/20 06/15/20 06/05/20 Rx tablet,extended release pen needle, diabetic 31 gauge x #100 each 05/20/20 06/05/20 Unknown Rx 12/08 docusate sodium 100 mg PO BID 06/15/20 06/15/20 Unknown History lisinopril 2.5 mg PO DAILY 06/15/20 06/15/20 Unknown History metformin 1,000 mg PO BID 06/15/20 06/15/20 Unknown History Allergies Allergy/AdvReac Type Severity Reaction Status Date / Time No Known Allergies Allergy Verified 06/05/20 17:48 Current Medications Current Medications Generic Name Dose Route Start Last Admin Trade Name Freq PRN Reason Stop Dose Admin Folic Acid 1 mg 06/15/20 09:00 06/15/20 08:32 Folic Acid 1 Mg Tablet PO Not Given DAILY [facility] Sodium Chloride 1,000 mls @ 75 mls/hr 06/15/20 05:00 06/15/20 06:49 Sodium Chloride 0.9% IV 75 mls/hr .[id number] ALBERTINA Administration Insulin Aspart 0 unit 06/15/20 08:00 06/15/20 07:08 Insulin Aspart 100 Unit/1 Ml SUBCUT 10 unit WM&BEDTIME ALBERTINA Administration Protocol Multivitamins Therapeutic 1 tab 06/15/20 09:00 06/15/20 08:32 Multivitamin Therapeutic Tablet PO Not Given DAILY [facility] Thiamine Mononitrate 100 mg 06/15/20 09:00 06/15/20 08:32 Thiamine 100 Mg Tablet PO Not Given DAILY ALBERTINA PFSH Acute PFSH: Medical History Anemia BPH (benign prostatic hyperplasia) Follows up with Dr. Bryant Bladder outlet obstruction CAD (coronary artery disease) CHF (congestive heart failure) 55% EF Chronic back pain Chronic pain Chronic pancreatitis Secondary to alcoholism Constipation COPD (chronic obstructive pulmonary disease) Diabetic neuropathy LIZZIE (generalized anxiety disorder) GERD (gastroesophageal reflux disease) Hx of hypokalemia Hypertension Peripheral neuropathy Presence of pancreatic duct stent Sacral decubitus ulcer, stage II Type 2 diabetes mellitus Surgical History (Updated 06/15/20 @ 09:58 by Leroy James MD) H/O cardiac catheterization Recent stent at [facility] 2 months ago History of tonsillectomy Stented coronary artery Family History Denies family history of Lung disease Hypertension Social History (Updated 06/15/20 @ 10:08 by Leroy James MD) Smoking and tobacco status: current every day smoker cigarettes Alcohol intake: former Year of sobriety/quit date alcohol: 2018 Former alcohol use details: but heavy Household members: family and other Details: Takes care of his father 87 years old Housing: House Vitals/I&O/Wt Weight last 48 hrs Weight 113 lb 8 oz Physical Exam Narrative: EXAM NARRATIVE: The patient was seen in the intensive care unit. Again, he seems alert but does not seem to have a good short-term memory or understanding of his medical history. His pupils seem equal. He has a resolving contusion on the left side of his forehead. The dentition is poor. The chest reveals symmetric air movement. The heart is regular. The abdomen reveals some scattered mild tenderness which does not always seem reproducible. The extremities are thin and reveal no edema. The patient can move all limbs to command. Data Imaging^: CT Abd/Pel: Radiologist's impression: CT abdomen/pelvis 06/15/2020 IMPRESSION: 1. Anasarca. 2. Improving bibasilar pneumonia. 3. Decreased density of the blood in the aorta consistent with anemia. 4. Prominent gastric distention but oral contrast passes to the colon indicating no complete obstruction. 5. Prominent calcification of the aorta and origins of the major vessels. Stenosis cannot be excluded. 6. Mural thickening of the urinary bladder. Correlate with urinalysis to exclude cystitis. A&P Assessment and plan (1) Hematemesis: The patient has clearly had evidence of an upper GI bleed over the last couple of days. The last time he took his Plavix and aspirin and ibuprofen was most likely yesterday. He continues to pass some dark stool/clots now. I cannot find any evidence of previous endoscopic procedures at this facility. I was prepared to do an emergency EGD on him to see if I could find any source of bleeding. Unfortunately, in looking at his CAT scan, his stomach appears to be moderately?severely distended and full of food material. This may very well be due to gastroparesis from his diabetes (as it is not brand-new on his imaging studies), but I do not think there would be any chance of us being able to see or treat anything endoscopically at this point (unless there was possibly some variceal bleeding which I cannot treat, anyway). He clearly is not obstructed as some oral contrast does move all the way into his colon. I have discussed the situation with Dr. Gill. I would highly recommend trying to get the patient transferred to a facility where they have greater endoscopic/gastroenterological capabilities, which is what I think should have probably happened in the first place. Unfortunately, I know that is going to be quite a chore given the current Covid pandemic and resultant lack of beds in facilities. Regardless, I think all we can do at the moment is support the patient with medical/conservative treatment and hope that he has enough time to allow the effects of his Plavix and NSAIDs to wear off. Status: Acute (2) Melanotic stools: Status: Acute (3) Hypovolemic shock: Status: Acute Consult Attestations Medical Necessity Statement: See admitting service's notation. 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
[2020-06-15 09:33] LABS: INR 1.84 (0.8-1.2)
[2020-06-15] MEDS: pantoprazole 40 MG in sodium chloride 0.9% (plus) 100 ML 20 MG IV (10:27)
[2020-06-15] MEDS: sodium chloride 0.9% (100 ml) 100 ML 20 ML (11:07)
--- NOTE | 2020-06-15 11:10 | PM.PN ---
Subjective Subjective: Interval history: States he is doing alright all things considering. States he is having some LUQ abdominal pain. States never had an EGD. Is not aware of history of liver cirrhosis. He states he is aware of history of gastroparesis. Vitals/I&O/Wt Weight last 48 hrs Weight 51.483 kg Physical Exam Const: COMMON NORMALS: patient oriented x3 and alert GENERAL APPEARANCE: cooperative and disheveled ORIENTATION/CONSCIOUSNESS: Yes awake OTHER: Pale HENMT: COMMON NORMALS: oropharynx normal Neck/C-Spine: COMMON NORMALS: no JVD Resp: COMMON NORMALS: normal respiratory effort and clear to auscultation bilaterally AUSCULTATION: clear to auscultation bilaterally Cardio: COMMON NORMALS: no JVD, regular rhythm, S1 normal heart sound present, S2 normal heart sound present and No murmurs present (Cardio) RHYTHM: regular rhythm HEART SOUNDS: S1 normal heart sound present and S2 normal heart sound present GI: COMMON NORMALS: Normal to inspection, nondistended, normoactive bowel sounds present, Soft to palpation and non-tender PALPATION: Yes Soft to palpation Extremity: COMMON NORMALS: no joint enlargement and no pedal edema Neuro: COMMON NORMALS: patient oriented x3 and moves all extremities SENSORIUM/ORIENTATION: Yes alert Skin: COMMON NORMALS: no rashes or lesions noted GENERAL SKIN EXAM: no rashes or lesions noted Data : 06/15/20 07:27 06/15/20 07:27 A&P Assessment and plan (1) Acute blood loss anemia: Status: Acute (2) Hematemesis: Status: Acute (3) Melanotic stools: Status: Acute (4) Hypovolemic shock: Status: Acute (5) Hyperglycemia: Status: Acute (6) Alcoholism: Status: Acute Coding Level of Care Code 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
[2020-06-15] MEDS: phytonadione (ADULT) 10 mg/mL Ampule 1 mL 5 MG PO (11:26)
[2020-06-15 11:30] LABS: Glucose Point of Care 127 mg/dL (70-110)
[2020-06-15] MEDS: cefTRIAXone 1,000 MG in sodium chloride 0.9% (plus) 50 ML 100 MG IV (11:43)
--- NOTE | 2020-06-15 12:05 | PC.NURSE ---
to ct at [address] of abdomen unable to start another iv site done without contrast per dr order at this time had large liquid clot of blood stool Dr aware at this time and h and h results back to room with noted drop in blood pressure untyped blood started on blood warmer wide open .
--- NOTE | 2020-06-15 12:11 | PC.NURSE ---
at 0930 started 2nd unit of blood continue to infuse and has loose bloody stools protonix started
--- NOTE | 2020-06-15 12:20 | PM.TDS ---
Transfer Summary Providers Date of Admission: 06/15/20 04:25 Date of Discharge: 06/15/20 Attending Provider at Admission: Sandro Mena MD Attending Provider at Transfer: Andrez Gill Primary Care Provider: Silvana Nieves MD Anticipated Date of Transfer: Anticipated date of transfer: 06/15/20 Receiving Facility & Provider: Receiving Provider: [] Receiving facility: [] Diagnoses at Discharge Discharge Diagnosis (1) Acute blood loss anemia: Status: Acute (2) Hematemesis: Status: Acute (3) Melanotic stools: Status: Acute (4) Hypovolemic shock: Status: Acute (5) Hyperglycemia: Status: Acute (6) Alcoholism: Status: Acute Reason for Visit Reason for Visit: Brief History: History of Present Illness Miguel Kuhn is 55-year-old male with a history of congestive heart failure, bladder outlet obstruction, double vessel coronary artery disease status post PTCA left circumflex/OM1, EF 55%, moderate aortic insufficiency, history of alcoholism, presented to [facility] ER in state of shock, initially systolic blood pressure was in 60s, they were not able to draw any blood at that time, dopamine drip was started along with IV fluids which improved his blood pressure, he received 2 units of O+blood before getting CBC, after 2 units his hemoglobin was 7.3, his blood glucose at the time of presentation was in 500s, nonacidotic, serum ketones negative, which improved after 3 L normal saline fluid resuscitation to 300s, patient mentation improved, patient remained on dopamine drip until midnight and then it was turned off. In the ER he experienced multiple episodes of emesis with subsequent development of hematemesis and melena. He has been having dark maroon bowel movements at the ER. [facility] ER physician asked patient to be transferred to our facility for GI bleed, recent shock and concern for DKA. I requested serum ketones level and ABG which were unremarkable. Of note, this patient was admitted in December for NSTEMI, had chest tube placement for 4 to 5 days for loculated exudative effusion, he was discharged home on Levaquin because a sputum culture grew Levaquin. Secondary to cachexia, malignancy and tuberculosis diagnoses were also being entertained. Review of previous labs: Cultures from pleural fluid did not grow any microorganisms, mycobacterial smear contain minimal volume so not reliable negative report, blood cultures stayed negative. Cytology from pleural fluid showed mild mixed inflammatory infiltrate cells without any evidence of dysplasia or malignancy On arrival in the ED today his blood pressure was 97/61 heart rate 100, Covid antigen was sent, he has started on normal saline fluid resuscitation, patient is awake alert oriented x3 GCS 15. Patient is able to tell me that today around afternoon he was trying to go towards the bathroom when he blacked out, his father found him on the floor and sent him to the [facility] ER. Patient is denying chest pain, shortness of breath before this event, no seizure-like activities. He is not sure why this happened. He is endorsing that for last 3 days he has been experiencing blood in his vomiting, he has been noticing coffee-ground emesis from his first episode, associated with abdominal pain mainly mid epigastric region and maroon color stool. At the time of my evaluation he is not complaining of active chest pain, headache, dysuria, his only complaint is midepigastric pain. His last dose of aspirin Plavix was this morning, his last alcoholic drink was in 2014, he is endorsing history of peptic ulcer disease, gastritis, gastric ulcers and taking a lot of ibuprofen on daily basis. He is not sure about the dosages but states he takes a lot of ibuprofen I have requested CT abdomen pelvis with contrast, After transfusion CBC white count 9.3, hemoglobin 7.3, platelet 82, creatinine 0.8 Sodium 134 Potassium 5.0 Bicarb 14 Total bilirubin 0.8 AST 623 ALT 161 Calcium 10.6 Albumin 2.4 BNP 11,000 ABG pH 7.50/CO2 29/PO2 95 on room air saturating 96%, serum ketones negative Hospital Course Hospital Course Here on recheck CBC noted with leukocytosis 14.3, hemoglobin 4.6, platelets 80,000. Blood pressure improved. Sodium 137, potassium 4.2, creatinine 0.8. AST 145, ALT 131, alk phos 361. INR checked and noted elevated at 1.84. Rapid COVID-19 antigen test is negative. He was initially started on Protonix 40 mg IV every 12h changed to Protonix drip after recheck CBC results. Concern exists for possible underlying cirrhosis, previously undiagnosed, this was discussed with patient and his brother. Unfortunately octreotide is not available. Given additional 2 units of O- blood transfusion here. Recheck Hb is ordered. Platelets are ordered and have to be delivered (~3 hrs). He is given 5 mg p.o. vitamin K in case of nutritional deficiency. CTAP non-contrast with anasarca, improving bibasilar PNA, decreased density of blood in aorta consistent with anemia, prominent gastric distention but oral contrast passes through the colon, primary calcification of aorta and origins of major vessels, stenosis not excluded, mural thickening of urinary bladder, correlate for cystitis. He started on Rocephin empirically in case of underlying cirrhosis, and for possible UTI with request for urinalysis. Mg is 1.3, requested 4g IV. His blood pressure is better, 121/98. Patient himself is awake, alert, cooperative, able to make his own decisions. His brother has called in, and patient names his brother as surrogate decision-maker in case he cannot make decisions himself. He has some pain/discomfort in the left upper quadrant, but otherwise abdomen is soft and non-tender in other areas. Bicarb is 24, AG 14. Suspicion for acute ischemic bowel is low given exam, lack of acidosis, although cannot exclude some hypoperfusion given anemia. Denies chest pain or pressure. Denies shortness of breath. He has had multiple melanotic stools while in the hospital. Surgery has seen him as well, unfortunately if this is variceal bleeding there is not much that can be done here in terms of intervention, and stomach distention makes additional endoscopic evaluation very difficult. Transfer is recommended to higher level facility. A number of facilities were contacted with no beds available. He is kindly accepted for additional assessment and care over at [facility] after discussion with gastroenterology there Dr. Panda. Physical Exam Const: COMMON NORMALS: patient oriented x3 and alert GENERAL APPEARANCE: cooperative and disheveled ORIENTATION/CONSCIOUSNESS: Yes awake OTHER: Pale HENMT: COMMON NORMALS: oropharynx normal Neck/C-Spine: COMMON NORMALS: no JVD Resp: COMMON NORMALS: normal respiratory effort and clear to auscultation bilaterally AUSCULTATION: clear to auscultation bilaterally Cardio: COMMON NORMALS: no JVD, regular rhythm, S1 normal heart sound present, S2 normal heart sound present and No murmurs present (Cardio) RHYTHM: regular rhythm HEART SOUNDS: S1 normal heart sound present and S2 normal heart sound present GI: COMMON NORMALS: Normal to inspection, nondistended, normoactive bowel sounds present and Soft to palpation PALPATION: Yes Soft to palpation and Yes Tenderness to palpation present (GI) (Some tendereness LUQ) Extremity: COMMON NORMALS: no joint enlargement and no pedal edema Neuro: COMMON NORMALS: patient oriented x3 and moves all extremities SENSORIUM/ORIENTATION: Yes alert Skin: COMMON NORMALS: no rashes or lesions noted GENERAL SKIN EXAM: no rashes or lesions noted TS Data Data Completed and Pending: Pending at discharge Category Date Time Status ABO/Rh Type Routi ne Lab 06/15/20 07:27 Results Complete Crossmat ch Routine Lab 06/15/20 07:27 Results Drug Screen, Urin e Routine Lab 06/15/20 04:55 Uncollected Hemoglobin Routin e Lab 06/15/20 12:19 Ordered Hemoglobin and He matocrit Timed Lab 06/15/20 11:00 Ordered Leukocyte Reduced RBC Routine Lab 06/15/20 07:27 Results Platelets Leuko-R educed Routine Lab 06/15/20 07:27 Results Type and Screen R outine Lab 06/15/20 07:27 Results UA w/Reflex to Mi croscope [Urinalys is] Routine Lab 06/15/20 10:27 Uncollected Labs from last 24 hours 06/15/20 06/15/20 06/15/20 11:27 07:27 07:27 WBC RBC Hgb Hct MCV MCH MCHC RDW Plt Count MPV Neut % (Auto) Lymph % (Auto) Elbert % (Auto) Eos % (Auto) Baso % (Auto) Neut # (Auto) Lymph # (Auto) Elbert # (Auto) Eos # (Auto) Baso # (Auto) Nucleated RBC % (a uto) Nucleated RBCs # PT 21.90 H INR 1.84 H Sodium Potassium Chloride Carbon Dioxide Anion Gap BUN Creatinine GFR Calculation Glucose POC Glucose 127 Calculated Osmolal ity Calcium Magnesium Total Bilirubin AST ALT Alkaline Phosphata se Total Protein Albumin Globulin SARS-CoV-2 Ag (Rap id) Blood Type A Positive Rho(D) Type Positive Antibody Screen Negative Crossmatch See Detail 06/15/20 06/15/20 06/15/20 07:27 07:27 06:43 WBC 14.3 H RBC 1.55 L Hgb 4.6 L* Hct 14.5 L* MCV 93.5 MCH 29.7 MCHC 31.7 RDW 17.6 H Plt Count 80 L MPV 13.2 H Neut % (Auto) 82.9 Lymph % (Auto) 13.8 Elbert % (Auto) 2.7 Eos % (Auto) 0.0 Baso % (Auto) 0.1 Neut # (Auto) 11.86 H Lymph # (Auto) 2.0 Elbert # (Auto) 0.4 Eos # (Auto) 0.0 Baso # (Auto) 0.0 Nucleated RBC % (a uto) 0 Nucleated RBCs # 0.0 PT INR Sodium 137 Potassium 4.2 Chloride 103 Carbon Dioxide 24 Anion Gap 14.2 BUN 39 H Creatinine 0.8 GFR Calculation 99.6 Glucose 308 H POC Glucose 358 Calculated Osmolal ity 305 H Calcium 7.9 L Magnesium 1.3 L Total Bilirubin 0.9 AST 145 H ALT 131 H Alkaline Phosphata se 361 H Total Protein 4.8 L Albumin 2.5 L Globulin 2.3 SARS-CoV-2 Ag (Rap id) Blood Type Rho(D) Type Antibody Screen Crossmatch 06/15/20 05:04 WBC RBC Hgb Hct MCV MCH MCHC RDW Plt Count MPV Neut % (Auto) Lymph % (Auto) Elbert % (Auto) Eos % (Auto) Baso % (Auto) Neut # (Auto) Lymph # (Auto) Elbert # (Auto) Eos # (Auto) Baso # (Auto) Nucleated RBC % (a uto) Nucleated RBCs # PT INR Sodium Potassium Chloride Carbon Dioxide Anion Gap BUN Creatinine GFR Calculation Glucose POC Glucose Calculated Osmolal ity Calcium Magnesium Total Bilirubin AST ALT Alkaline Phosphata se Total Protein Albumin Globulin SARS-CoV-2 Ag (Rap id) Negative Blood Type Rho(D) Type Antibody Screen Crossmatch Vitals: Last Vital Signs Temp 97.8 F 06/15/20 11:45 Pulse 97 06/15/20 12:00 Resp 17 06/15/20 12:00 BP 164/116 06/15/20 12:00 Pulse Ox 100 06/15/20 12:00 TS Medications Medications Home Medications aspirin 81 mg tablet,delayed release 81 mg PO DAILY 30 Days #30 tab 01/01/20 [Rx Confirmed 06/15/20] atorvastatin 40 mg tablet 40 mg PO DAILY 30 Days #30 tab 01/01/20 [Rx Confirmed 06/15/20] qpfbxa-iahpbsmd-pxszhzs 5,000-17,000-24,000 unit capsule, delayed rel 1 cap PO TID 30 Days #90 cap 03/27/20 [Rx Confirmed 06/15/20] nitroglycerin 0.4 mg sublingual tablet 0.4 mg SUBLINGUAL Q5M PRN #14 tab 03/27/20 [Rx Confirmed 06/15/20] ondansetron HCl 4 mg tablet 4 mg PO Q8H 30 Days #90 tab 03/27/20 [Rx Confirmed 06/15/20] budesonide-formoterol HFA 160 mcg-4.5 mcg/actuation aerosol inhaler 2 inh INHALATION Q12H #10.2 gm 05/06/20 [Rx Confirmed 06/15/20] clonazepam 0.5 mg tablet 0.5 mg PO DAILY PRN 30 Days #30 tab 05/06/20 [Rx Confirmed 06/15/20] clopidogrel 75 mg tablet 75 mg PO DAILY 30 Days #30 tab 05/06/20 [Rx Confirmed 06/15/20] cyclobenzaprine 5 mg tablet 10 mg PO TID PRN #30 tab MDD 6 tabs 05/06/20 [Rx Confirmed 06/15/20] furosemide 40 mg tablet 40 mg PO BID 30 Days #60 tab 05/06/20 [Rx Confirmed 06/15/20] gabapentin 300 mg capsule 300 mg PO TID 30 Days #90 cap 05/06/20 [Rx Confirmed 06/15/20] insulin detemir U-100 100 unit/mL (3 mL) subcutaneous pen 15 unit SUBCUT DAILY 30 Days #15 ml 05/06/20 [Rx Confirmed 06/15/20] isosorbide mononitrate 30 mg tablet,extended release 24 hr 30 mg PO QAM 30 Days #30 tab 05/06/20 [Rx Confirmed 06/15/20] sertraline 50 mg tablet 50 mg PO DAILY 30 Days #30 tab 05/06/20 [Rx Confirmed 06/15/20] tamsulosin 0.4 mg capsule 0.4 mg PO DAILY 30 Days #30 cap 05/06/20 [Rx Confirmed 06/15/20] ferrous sulfate 325 mg (65 mg iron) tablet 325 mg PO DAILY 30 Days #30 tab 05/12/20 [Rx Confirmed 06/15/20] potassium chloride 20 mEq tablet,extended release 20 meq PO TID 30 Days #90 tab 05/12/20 [Rx Confirmed 06/15/20] pen needle, diabetic 31 gauge x 12/08 #100 each 05/20/20 [Rx Confirmed 06/15/20] docusate sodium 100 mg PO BID 06/15/20 [History Confirmed 06/15/20] lisinopril 2.5 mg PO DAILY 06/15/20 [History Confirmed 06/15/20] metformin 1,000 mg PO BID 06/15/20 [History Confirmed 06/15/20] Active Medications Dextrose (Dextrose 50% Syringe 50 Ml) 25 ml IVP ONCE PRN; Protocol PRN Reason: hypoglycemia protocol Dextrose (Dextrose 50% Syringe 50 Ml) 50 ml IVP PRN PRN; Protocol PRN Reason: hypoglycemia protocol Folic Acid (Folic Acid 1 Mg Tablet) 1 mg PO DAILY [facility] Last Admin: 06/15/20 08:32 Dose: Not Given Documented by: Glucagon (Glucagon 1 Mg/Ml Inj 1 Ml) 1 mg IM ONCE PRN; Protocol PRN Reason: Adult Acute Hypoglycemia Prot. Dextrose (D5w) 500 mls @ 100 mls/hr IV ONCE PRN; Protocol PRN Reason: Adult Acute Hypoglycemia Prot Sodium Chloride (Sodium Chloride 0.9%) 1,000 mls @ 75 mls/hr IV .[id number] [facility] Last Admin: 06/15/20 06:49 Dose: 75 mls/hr Documented by: Pantoprazole Sodium 40 mg/ (Sodium Chloride) 100 mls @ 20 mls/hr IV .Q5H [facility] Last Admin: 06/15/20 10:27 Dose: 8 mg/hr, 20 mls/hr Documented by: Ceftriaxone Sodium 1,000 mg/ (Sodium Chloride) 50 mls @ 100 mls/hr IV Q24H [facility]; Protocol Last Admin: 06/15/20 11:43 Dose: 100 mls/hr Documented by: Magnesium Sulfate (Magnesium Sulfate Premix) 4 gm in 100 mls @ 50 mls/hr IV ONCE ONE Stop: 06/15/20 14:59 Insulin Aspart (Insulin Aspart 100 Unit/1 Ml) 0 unit SUBCUT WM&BEDTIME [facility]; Protocol Last Admin: 06/15/20 11:42 Dose: Not Given Documented by: Lorazepam (Lorazepam 2 Mg/Ml Inj 1 Ml) 2 mg IM Q4H PRN; Protocol PRN Reason: ALCOWD Lorazepam (Lorazepam 2 Mg/Ml Inj 1 Ml) 2 mg IVP PRN PRN; Protocol PRN Reason: WITHDRAWAL Lorazepam (Lorazepam 2 Mg Tablet) 2 mg PO Q4H PRN; Protocol PRN Reason: WITHDRAWAL Multivitamins Therapeutic (Multivitamin Therapeutic Tablet) 1 tab PO DAILY [facility] Last Admin: 06/15/20 08:32 Dose: Not Given Documented by: Thiamine Mononitrate (Thiamine 100 Mg Tablet) 100 mg PO DAILY [facility] Last Admin: 06/15/20 08:32 Dose: Not Given Documented by: Discharge Plan Discharge Patient Disposition: Xfer Short-Term Hosp Condition: Stable Prescriptions: No Action aspirin 81 mg tablet,delayed release (DR/EC) 81 mg PO DAILY 30 Days Qty: 30 RF: 11 atorvastatin 40 mg tablet 40 mg PO DAILY 30 Days Qty: 30 RF: 11 nitroglycerin 0.4 mg tablet, sublingual 0.4 mg SUBLINGUAL Q5M PRN (Reason: chest pain) Qty: 14 RF: 0 ondansetron HCl [Zofran] 4 mg tablet 4 mg PO Q8H 30 Days Qty: 90 RF: 1 Zenpep 5,000-17,000- 24,000 unit capsule,delayed release(DR/EC) 1 cap PO TID 30 Days Qty: 90 RF: 2 Symbicort 160-4.5 mcg/actuation HFA aerosol inhaler 2 inh INHALATION Q12H Qty: 10.2 RF: 2 sertraline 50 mg tablet 50 mg PO DAILY 30 Days Qty: 30 RF: 2 clopidogrel 75 mg tablet 75 mg PO DAILY 30 Days Qty: 30 RF: 2 Levemir FlexTouch U-100 Insuln 100 unit/mL (3 mL) insulin pen 15 unit SUBCUT DAILY 30 Days Qty: 15 RF: 2 tamsulosin 0.4 mg capsule 0.4 mg PO DAILY 30 Days Qty: 30 RF: 2 cyclobenzaprine 5 mg tablet 10 mg PO TID MDD 6 tabs PRN (Reason: muscle spasm) Qty: 30 RF: 1 furosemide 40 mg tablet 40 mg PO BID 30 Days Qty: 60 RF: 2 gabapentin 300 mg capsule 300 mg PO TID 30 Days Qty: 90 RF: 2 isosorbide mononitrate 30 mg tablet extended release 24 hr 30 mg PO QAM 30 Days Qty: 30 RF: 2 clonazepam 0.5 mg tablet 0.5 mg PO DAILY PRN (Reason: anxiety) 30 Days Qty: 30 RF: 0 potassium chloride 20 mEq tablet extended release 20 meq PO TID 30 Days Qty: 90 RF: 2 ferrous sulfate 325 mg (65 mg iron) tablet 325 mg PO DAILY 30 Days Qty: 30 RF: 2 (DME) pen needle, diabetic [Comfort EZ Pen Ewing] 31 gauge x 5/16 needle See Rx Instructions .ROUTE .MEDSUPPLY Qty: 100 RF: 2 metformin 1,000 mg Tablet 1,000 mg PO BID RF: 0 lisinopril 2.5 mg Tablet 2.5 mg PO DAILY RF: 0 docusate sodium 100 mg Capsule 100 mg PO BID RF: 0 Transfer Attestations Time Spent in Transfer Care*: greater than 30 min Status at Transfer: Cognitive status at transfer: cognitively intact, Behavioral status at transfer: cooperative, Quality Metrics Clinical Quality Measures: During this hospital stay, did patient experience: None Coding Level of Care Code Acute [employer] Diagnoses Acute blood loss anemia D62 Hematemesis K92.0 Melanotic stools K92.1 Hypovolemic shock R57.1 Hyperglycemia R73.9 Alcoholism F10.20
[2020-06-15 12:46] LABS: Hematocrit 24.7 % (42.0-52.0); Hemoglobin 8.4 g/dL (11.7-16.6)
[2020-06-15] MEDS: magnesium sulfate premix 4 GM/100 ML PREMIX IV (13:09)
--- NOTE | 2020-06-15 13:35 | PC.NURSE ---
Pt platelet/ blood transfusion update 1300 this nurse infused the 1st unit of platelets. 2nd unit of platelets started at 1313, Pt continues to have bloody bowel movements. Soon after platelets were transfused, this nurse started 3rd unit of blood at 1325. Pt tolerated well. Patient's Hemoglobin 8.4 at this time and vital signs stable at HR:96, O2: 100%, RR:20, BP:164/93, and temp:97.9. Well continue to monitor. Report called to [facility] at 1345.
[2020-06-15 14:19] LABS: Add Urine Microscopic? YES; Bilirubin Urine Neg (Negative); Blood Urine 3+ (Negative); Glucose Urine UA Norm (Normal); Ketones Urine Negative (Negative); Leukocyte Esterase Urine 2+ (Negative); Nitrate Urine Negative (Negative); Protein Urine 1+ (Negative); Urine Appearance Cloudy (CLEAR); Urine Color Yellow (Yellow); Urobilinogen Urine Norm (Negative); pH Urine 5 (5-7)
[2020-06-15 14:20] LABS: Add Urine Culture? Yes; Bacteria Urine 2+ /hpf; RBC Urine 15-25 /hpf (0-2); WBC Urine TOO NUMEROUS TO CNT /hpf (0-5)
[2020-06-15 14:34] LABS: Amphetamines Screen Urine Positive (Negative); Barbiturates Screen Urine Negative (Negative); Benzodiazepines Screen Urine Negative (Negative); Cocaine Screen Urine Negative (Negative); Opiate Screen Urine Positive (Negative); PCP Screen Urine Negative (Negative); THC Screen Urine Positive (Negative)
--- NOTE | 2020-06-15 14:34 | PC.NURSE ---
report called to [facility] ambulance here transport to [place] with gi bleed brother here for visit
--- NOTE | 2020-06-18 15:06 | PC.RESP ---
Smoking Cessation and Pulmonary Rehab packet sent to patient.
--- NOTE | 2020-07-14 02:57 | W.ED.GIBLEED ---
HPI - GI Bleed History of Present Illness: HPI Narrative: 55-year-old male arriving in the ER 06/15/2020 as a direct admit from [facility] in [place]. He presents with GI bleeding with a history of bloody emesis, and melanotic stool. His hemoglobin is low. He denies any respiratory symptoms, but is weak, hypotensive, on a dopamine drip, and had received blood at the outside facility. He comes through the ER for Covid screening. He is on Plavix and 81 mg aspirin. MD complaint: coffee ground emesis, melena and gross hematochezia Onset (ago): day(s) Severity: moderate Relieving factors: none Associated symptoms: Reports abdominal pain, malaise, nausea, vomiting and weakness; Denies epistaxis or fever(s) Review of Systems Const: Reports: malaise; Denies: fever(s) ENMT: Denies: epistaxis GI: Reports: abdominal pain, nausea and vomiting PFSH ED PFSH: Medical History Alcoholism Anemia BPH (benign prostatic hyperplasia) Follows up with Dr. Bryant Bladder outlet obstruction CAD (coronary artery disease) CHF (congestive heart failure) 55% EF Chronic back pain Chronic pain Chronic pancreatitis Secondary to alcoholism Constipation COPD (chronic obstructive pulmonary disease) Diabetic neuropathy LIZZIE (generalized anxiety disorder) GERD (gastroesophageal reflux disease) Hx of hypokalemia Hypertension Peripheral neuropathy Presence of pancreatic duct stent Sacral decubitus ulcer, stage II Type 2 diabetes mellitus Surgical History H/O cardiac catheterization Recent stent at [facility] 2 months ago History of tonsillectomy Stented coronary artery Family History Denies family history of Lung disease Hypertension Social History Smoking and tobacco status: current every day smoker cigarettes Alcohol intake: former Year of sobriety/quit date alcohol: 2018 Former alcohol use details: but heavy Household members: family and other Details: Takes care of his father 87 years old Housing: House Physical Exam Const: COMMON NORMALS: patient oriented x3 GENERAL APPEARANCE: ill appearing NUTRITIONAL APPEARANCE: thin ORIENTATION/CONSCIOUSNESS: Yes awake Chest: COMMONS NORMALS: normal inspection of the chest Resp: COMMON NORMALS: No retractions and No use of accessory muscles EFFORT & INSPECTION: Yes tachypneic Cardio: COMMON NORMALS: regular rhythm RATE: tachycardic RHYTHM: regular rhythm GI: COMMON NORMALS: Soft to palpation PALPATION: Yes Soft to palpation and Yes Tenderness to palpation present (GI) (epigastric) Neuro: COMMON NORMALS: patient oriented x3 Course Vital Signs: Vital signs: Vital Signs Temperature 97.3 F L 06/15/20 16:00 Pulse Rate 98 06/15/20 16:00 Respiratory Rate 24 H 06/15/20 16:00 Blood Pressure 164/93 06/15/20 16:00 Pulse Oximetry 100 06/15/20 16:00 MDM - GI Bleed MDM Narrative: Medical decision making narrative: Hospitalist called on patient's arrival for direct admission. He is Covid negative by screening and rapid antigen negative. Lab Data: Labs: Lab Results 06/15/20 06/15/20 06/15/20 Range/Units 05:04 06:43 07:27 WBC 14.3 H (4.0-10.0) 10^3/ uL RBC 1.55 L (4.1-5.3) 10^6/u L Hgb 4.6 L* (11.7-16.6) g/dL Hct 14.5 L* (42.0-52.0) % MCV 93.5 (80-94) fL MCH 29.7 (28.0-34.0) pg MCHC 31.7 (30.0-36.0) g/dL RDW 17.6 H (12.1-15.1) % Plt Count 80 L (130-400) 10^3/c mm MPV 13.2 H (7.4-10.4) fL Neut % (Auto) 82.9 % Lymph % (Auto) 13.8 % [place] % (Auto) 2.7 % Eos % (Auto) 0.0 % Baso % (Auto) 0.1 % Neut # (Auto) 11.86 H (1.8-7.7) 10^3/u L Lymph # (Auto) 2.0 (0.8-4.8) 10^3/u L [place] # (Auto) 0.4 (0.2-0.9) 10^3/u L Eos # (Auto) 0.0 (0.0-0.8) 10^3/u L Baso # (Auto) 0.0 (0.0-0.1) 10^3/u L Nucleated RBC % (a uto) 0 % Nucleated RBCs # 0.0 /100WBC PT (12.1-14.9) SECO NDS INR (0.8-1.2) Sodium (136-145) mmol/L Potassium (3.5-5.1) mmol/L Chloride (98-107) mmol/L Carbon Dioxide (22-29) mmol/L Anion Gap (5-19) BUN (6-20) mg/dL Creatinine (0.7-1.2) mg/dL GFR Calculation (90-130) mL/min Glucose (65-115) mg/dL POC Glucose 358 (70-110) mg/dL Calculated Osmolal ity (285-295) mOsm/k g Calcium (8.5-10.5) mg/dL Magnesium (1.7-2.3) mg/dL Total Bilirubin (0.15-1.2) mg/dL AST (0-40) U/L ALT (0-41) U/L Alkaline Phosphata se (40-130) IU/L Total Protein (6.6-8.7) g/dL Albumin (3.5-5.2) g/dL Globulin (1.3-4.6) g/dL Urine Color (Yellow) Urine Appearance (CLEAR) Urine pH (5-7) Ur Specific Gravit y (1.005-1.030) Urine Protein (Negative) Urine Glucose (UA) (Normal) Urine Ketones (Negative) Urine Blood (Negative) Urine Nitrate (Negative) Urine Bilirubin (Negative) Urine Urobilinogen (Negative) mg/dL Ur Leukocyte Destiny ase (Negative) Urine RBC (0-2) /hpf Urine WBC (0-5) /hpf Ur Squamous Epith Cells (0-5) /hpf Amorphous Sediment Urine Bacteria (NONE) /hpf Urine Opiates Scre en (Negative) ng/mL Ur Barbiturates Sc reen (Negative) ng/mL Ur Phencyclidine S crn (Negative) ng/mL Ur Amphetamines Sc reen (Negative) ng/mL U Benzodiazepines Scrn (Negative) ng/mL Urine Cocaine Scre en (Negative) ng/mL U Marijuana (THC) Screen (Negative) ng/mL SARS-CoV-2 Ag (Rap id) Negative (Negative) Blood Type Rho(D) Type Antibody Screen Crossmatch 06/15/20 06/15/20 06/15/20 Range/Units 07:27 07:27 07:27 WBC (4.0-10.0) 10^3/ uL RBC (4.1-5.3) 10^6/u L Hgb (11.7-16.6) g/dL Hct (42.0-52.0) % MCV (80-94) fL MCH (28.0-34.0) pg MCHC (30.0-36.0) g/dL RDW (12.1-15.1) % Plt Count (130-400) 10^3/c mm MPV (7.4-10.4) fL Neut % (Auto) % Lymph % (Auto) % [place] % (Auto) % Eos % (Auto) % Baso % (Auto) % Neut # (Auto) (1.8-7.7) 10^3/u L Lymph # (Auto) (0.8-4.8) 10^3/u L [place] # (Auto) (0.2-0.9) 10^3/u L Eos # (Auto) (0.0-0.8) 10^3/u L Baso # (Auto) (0.0-0.1) 10^3/u L Nucleated RBC % (a uto) % Nucleated RBCs # /100WBC PT 21.90 H (12.1-14.9) SECO NDS INR 1.84 H (0.8-1.2) Sodium 137 (136-145) mmol/L Potassium 4.2 (3.5-5.1) mmol/L Chloride 103 (98-107) mmol/L Carbon Dioxide 24 (22-29) mmol/L Anion Gap 14.2 (5-19) BUN 39 H (6-20) mg/dL Creatinine 0.8 (0.7-1.2) mg/dL GFR Calculation 99.6 (90-130) mL/min Glucose 308 H (65-115) mg/dL POC Glucose (70-110) mg/dL Calculated Osmolal ity 305 H (285-295) mOsm/k g Calcium 7.9 L (8.5-10.5) mg/dL Magnesium 1.3 L (1.7-2.3) mg/dL Total Bilirubin 0.9 (0.15-1.2) mg/dL AST 145 H (0-40) U/L ALT 131 H (0-41) U/L Alkaline Phosphata se 361 H (40-130) IU/L Total Protein 4.8 L (6.6-8.7) g/dL Albumin 2.5 L (3.5-5.2) g/dL Globulin 2.3 (1.3-4.6) g/dL Urine Color (Yellow) Urine Appearance (CLEAR) Urine pH (5-7) Ur Specific Gravit y (1.005-1.030) Urine Protein (Negative) Urine Glucose (UA) (Normal) Urine Ketones (Negative) Urine Blood (Negative) Urine Nitrate (Negative) Urine Bilirubin (Negative) Urine Urobilinogen (Negative) mg/dL Ur Leukocyte Destiny ase (Negative) Urine RBC (0-2) /hpf Urine WBC (0-5) /hpf Ur Squamous Epith Cells (0-5) /hpf Amorphous Sediment Urine Bacteria (NONE) /hpf Urine Opiates Scre en (Negative) ng/mL Ur Barbiturates Sc reen (Negative) ng/mL Ur Phencyclidine S crn (Negative) ng/mL Ur Amphetamines Sc reen (Negative) ng/mL U Benzodiazepines Scrn (Negative) ng/mL Urine Cocaine Scre en (Negative) ng/mL U Marijuana (THC) Screen (Negative) ng/mL SARS-CoV-2 Ag (Rap id) (Negative) Blood Type A Positive Rho(D) Type Positive Antibody Screen Negative Crossmatch See Detail 06/15/20 06/15/20 06/15/20 Range/Units 11:27 12:30 12:34 WBC (4.0-10.0) 10^3/ uL RBC (4.1-5.3) 10^6/u L Hgb 8.4 L D (11.7-16.6) g/dL Hct 24.7 L D (42.0-52.0) % MCV (80-94) fL MCH (28.0-34.0) pg MCHC (30.0-36.0) g/dL RDW (12.1-15.1) % Plt Count (130-400) 10^3/c mm MPV (7.4-10.4) fL Neut % (Auto) % Lymph % (Auto) % [place] % (Auto) % Eos % (Auto) % Baso % (Auto) % Neut # (Auto) (1.8-7.7) 10^3/u L Lymph # (Auto) (0.8-4.8) 10^3/u L [place] # (Auto) (0.2-0.9) 10^3/u L Eos # (Auto) (0.0-0.8) 10^3/u L Baso # (Auto) (0.0-0.1) 10^3/u L Nucleated RBC % (a uto) % Nucleated RBCs # /100WBC PT (12.1-14.9) SECO NDS INR (0.8-1.2) Sodium (136-145) mmol/L Potassium (3.5-5.1) mmol/L Chloride (98-107) mmol/L Carbon Dioxide (22-29) mmol/L Anion Gap (5-19) BUN (6-20) mg/dL Creatinine (0.7-1.2) mg/dL GFR Calculation (90-130) mL/min Glucose (65-115) mg/dL POC Glucose 127 (70-110) mg/dL Calculated Osmolal ity (285-295) mOsm/k g Calcium (8.5-10.5) mg/dL Magnesium (1.7-2.3) mg/dL Total Bilirubin (0.15-1.2) mg/dL AST (0-40) U/L ALT (0-41) U/L Alkaline Phosphata se (40-130) IU/L Total Protein (6.6-8.7) g/dL Albumin (3.5-5.2) g/dL Globulin (1.3-4.6) g/dL Urine Color Yellow (Yellow) Urine Appearance Cloudy (CLEAR) Urine pH 5 (5-7) Ur Specific Gravit y 1.010 (1.005-1.030) Urine Protein 1+ H (Negative) Urine Glucose (UA) Norm (Normal) Urine Ketones Negative (Negative) Urine Blood 3+ H (Negative) Urine Nitrate Negative (Negative) Urine Bilirubin Neg (Negative) Urine Urobilinogen Norm (Negative) mg/dL Ur Leukocyte Destiny ase 2+ H (Negative) Urine RBC 15-25 H (0-2) /hpf Urine WBC Too numerous to c nt H (0-5) /hpf Ur Squamous Epith Cells None (0-5) /hpf Amorphous Sediment Not Reportable Urine Bacteria 2+ H (NONE) /hpf Urine Opiates Scre en (Negative) ng/mL Ur Barbiturates Sc reen (Negative) ng/mL Ur Phencyclidine S crn (Negative) ng/mL Ur Amphetamines Sc reen (Negative) ng/mL U Benzodiazepines Scrn (Negative) ng/mL Urine Cocaine Scre en (Negative) ng/mL U Marijuana (THC) Screen (Negative) ng/mL SARS-CoV-2 Ag (Rap id) (Negative) Blood Type Rho(D) Type Antibody Screen Crossmatch 06/15/20 Range/Units 12:34 WBC (4.0-10.0) 10^3/ uL RBC (4.1-5.3) 10^6/u L Hgb (11.7-16.6) g/dL Hct (42.0-52.0) % MCV (80-94) fL MCH (28.0-34.0) pg MCHC (30.0-36.0) g/dL RDW (12.1-15.1) % Plt Count (130-400) 10^3/c mm MPV (7.4-10.4) fL Neut % (Auto) % Lymph % (Auto) % [place] % (Auto) % Eos % (Auto) % Baso % (Auto) % Neut # (Auto) (1.8-7.7) 10^3/u L Lymph # (Auto) (0.8-4.8) 10^3/u L [place] # (Auto) (0.2-0.9) 10^3/u L Eos # (Auto) (0.0-0.8) 10^3/u L Baso # (Auto) (0.0-0.1) 10^3/u L Nucleated RBC % (a uto) % Nucleated RBCs # /100WBC PT (12.1-14.9) SECO NDS INR (0.8-1.2) Sodium (136-145) mmol/L Potassium (3.5-5.1) mmol/L Chloride (98-107) mmol/L Carbon Dioxide (22-29) mmol/L Anion Gap (5-19) BUN (6-20) mg/dL Creatinine (0.7-1.2) mg/dL GFR Calculation (90-130) mL/min Glucose (65-115) mg/dL POC Glucose (70-110) mg/dL Calculated Osmolal ity (285-295) mOsm/k g Calcium (8.5-10.5) mg/dL Magnesium (1.7-2.3) mg/dL Total Bilirubin (0.15-1.2) mg/dL AST (0-40) U/L ALT (0-41) U/L Alkaline Phosphata se (40-130) IU/L Total Protein (6.6-8.7) g/dL Albumin (3.5-5.2) g/dL Globulin (1.3-4.6) g/dL Urine Color (Yellow) Urine Appearance (CLEAR) Urine pH (5-7) Ur Specific Gravit y (1.005-1.030) Urine Protein (Negative) Urine Glucose (UA) (Normal) Urine Ketones (Negative) Urine Blood (Negative) Urine Nitrate (Negative) Urine Bilirubin (Negative) Urine Urobilinogen (Negative) mg/dL Ur Leukocyte Destiny ase (Negative) Urine RBC (0-2) /hpf Urine WBC (0-5) /hpf Ur Squamous Epith Cells (0-5) /hpf Amorphous Sediment Urine Bacteria (NONE) /hpf Urine Opiates Scre en Positive H (Negative) ng/mL Ur Barbiturates Sc reen Negative (Negative) ng/mL Ur Phencyclidine S crn Negative (Negative) ng/mL Ur Amphetamines Sc reen Positive H (Negative) ng/mL U Benzodiazepines Scrn Negative (Negative) ng/mL Urine Cocaine Scre en Negative (Negative) ng/mL U Marijuana (THC) Screen Positive H (Negative) ng/mL SARS-CoV-2 Ag (Rap id) (Negative) Blood Type Rho(D) Type Antibody Screen Crossmatch Discharge Plan Discharge Patient Disposition: Xfer Short-Term Hosp Condition: Stable Prescriptions: No Action aspirin 81 mg tablet,delayed release (DR/EC) 81 mg PO DAILY 30 Days Qty: 30 RF: 11 atorvastatin 40 mg tablet 40 mg PO DAILY 30 Days Qty: 30 RF: 11 nitroglycerin 0.4 mg tablet, sublingual 0.4 mg SUBLINGUAL Q5M PRN (Reason: chest pain) Qty: 14 RF: 0 ondansetron HCl [Zofran] 4 mg tablet 4 mg PO Q8H 30 Days Qty: 90 RF: 1 Zenpep 5,000-17,000- 24,000 unit capsule,delayed release(DR/EC) 1 cap PO TID 30 Days Qty: 90 RF: 2 ferrous sulfate 325 mg (65 mg iron) tablet 325 mg PO DAILY 30 Days Qty: 30 RF: 2 clonazepam 0.5 mg tablet 0.5 mg PO DAILY PRN (Reason: anxiety) 30 Days Qty: 10 RF: 0 Symbicort 160-4.5 mcg/actuation HFA aerosol inhaler 2 inh INHALATION Q12H Qty: 10.2 RF: 2 sertraline 50 mg tablet 50 mg PO DAILY 30 Days Qty: 30 RF: 2 clopidogrel 75 mg tablet 75 mg PO DAILY 30 Days Qty: 30 RF: 2 Levemir FlexTouch U-100 Insuln 100 unit/mL (3 mL) insulin pen 15 unit SUBCUT DAILY 30 Days Qty: 15 RF: 2 tamsulosin 0.4 mg capsule 0.4 mg PO DAILY 30 Days Qty: 30 RF: 2 cyclobenzaprine 5 mg tablet 10 mg PO TID MDD 6 tabs PRN (Reason: muscle spasm) Qty: 30 RF: 1 furosemide 40 mg tablet 40 mg PO BID 30 Days Qty: 60 RF: 2 gabapentin 300 mg capsule 300 mg PO TID 30 Days Qty: 90 RF: 2 isosorbide mononitrate 30 mg tablet extended release 24 hr 30 mg PO QAM 30 Days Qty: 30 RF: 2 clonazepam 0.5 mg tablet 0.5 mg PO DAILY PRN (Reason: anxiety) 30 Days Qty: 30 RF: 0 potassium chloride 20 mEq tablet extended release 20 meq PO TID 30 Days Qty: 90 RF: 2 (DME) pen needle, diabetic [Comfort EZ Pen [place]] 31 gauge x 5/16 needle See Rx Instructions .ROUTE .MEDSUPPLY Qty: 100 RF: 2 metformin 1,000 mg Tablet 1,000 mg PO BID RF: 0 lisinopril 2.5 mg Tablet 2.5 mg PO DAILY RF: 0 docusate sodium 100 mg Capsule 100 mg PO BID RF: 0 Discharge Orders: Transfer Out of Facility (Order); Ordered 06/15/20 Ordered By: Andrez Gill Coding Level of Care Code ED Entry Level Machine Operator for Chg Fwd Exam Detailed
== END 2020-06-15 16:00 | disposition short-term general hospital (02) | DRG 378 ==
PROVIDERS: Admitting Provider Internal Medicine; PCP Family Medicine; Visit Provider Internal Medicine
DX: K92.0 Hematemesis (principal); N13.8 Other obstructive and reflux uropathy; D62 Acute posthemorrhagic anemia; K86.0 Alcohol-induced chronic pancreatitis; I50.9 Heart failure, unspecified; I11.0 Hypertensive heart disease with heart failure; N40.1 Benign prostatic hyperplasia with lower urinary tract symptoms; I25.10 Atherosclerotic heart disease of native coronary artery without angina pectoris; Z95.5 Presence of coronary angioplasty implant and graft; I35.1 Nonrheumatic aortic (valve) insufficiency; F10.20 Alcohol dependence, uncomplicated; I25.2 Old myocardial infarction; R55 Syncope and collapse; Z87.11 Personal history of peptic ulcer disease; G89.29 Other chronic pain; M54.9 Dorsalgia, unspecified; K59.00 Constipation, unspecified; J44.9 Chronic obstructive pulmonary disease, unspecified; E11.65 Type 2 diabetes mellitus with hyperglycemia; E11.40 Type 2 diabetes mellitus with diabetic neuropathy, unspecified; E11.43 Type 2 diabetes mellitus with diabetic autonomic (poly)neuropathy; K31.84 Gastroparesis; F41.1 Generalized anxiety disorder; K21.9 Gastro-esophageal reflux disease without esophagitis; K92.1 Melena; Z79.4 Long term (current) use of insulin; Z79.02 Long term (current) use of antithrombotics/antiplatelets; Z79.82 Long term (current) use of aspirin; N30.90 Cystitis, unspecified without hematuria; R29.6 Repeated falls
CPT/HCPCS: 12345; 36415; 36416; 36430; 51702; 74176; 80053; 80306; 81001; 82962; 83735; 85014; 85018; 85025; 85610; 86850; 86900; 86920; 87086; 87106; 87426; 93005; 96360; 96372; 99281; 99283; C9113; J0696; J1815; J3411; J3430; J3475; J7030; P9016; P9035

== ENCOUNTER 2020-06-15 04:32 | Emergency (ER) | payer MEDICAID, SELFPAY ==
[2020-06-15 04:37] VITALS: BP 84/52; PULSE 105; RESP 16; TEMP 36.1; O2SAT 100; BMI 18.2
[2020-06-15] MEDS: sodium chloride 0.9% 1,000 ML 999 ML IV (05:19)
[2020-06-15 05:20] VITALS: BP 97/61; PULSE 104; RESP 13; O2SAT 100
--- NOTE | 2020-06-15 06:56 | CTR_ITS ---
PROCEDURE INFORMATION: Exam: CT Abdomen And Pelvis Without Contrast Exam date and time: 06/15/2020 8:10 AM Age: 55 years old Clinical indication: Abdominal pain; Generalized; Additional info: Ugib TECHNIQUE: Imaging protocol: Computed tomography of the abdomen and pelvis without contrast. Radiation optimization: All CT scans at this facility use at least one of these dose optimization techniques: automated exposure control; mA and/or kV adjustment per patient size (includes targeted exams where dose is matched to clinical indication); or iterative reconstruction. COMPARISON: CT abdomen pelvis w con* [id number] 05/14/2020 8:37 PM RADIATION DOSE METRICS: Total DLP (mGy-cm): 387.83 FINDINGS: Lungs: Bibasilar pulmonary infiltrates are present greater on the left side. These have decreased in prominence when compared to the previous scan and consistent with mild improvement of pneumonia. Pleural space: Minimal bilateral pleural effusions are present. Heart: There is decreased density of the blood in the heart and aorta which can be seen with severe anemia. Liver: Normal. No mass. Gallbladder and bile ducts: Normal. No calcified stones. No ductal dilation. Pancreas: The pancreas is atrophic and contains numerous calcifications which may be from chronic pancreatitis. Spleen: Normal. No splenomegaly. Adrenal glands: Normal. No mass. Kidneys and ureters: Normal. No hydronephrosis. Stomach and bowel: There is prominent distention of the stomach containing food. The stomach is less distended than on the previous scan. Oral contrast passes through the bowel to the descending colon indicating no obstruction. The bowel is not dilated. There is a prominent amount of stool in the rectum which may indicate fecal impaction. Appendix: No evidence of appendicitis. Intraperitoneal space: There is a small ascites. No free air is seen. Vasculature: There is calcification of the aorta and iliac arteries but no evidence of aneurysm. There is also calcification of the origins of the celiac and mesenteric arteries which may cause stenoses. Lymph nodes: Unremarkable. No enlarged lymph nodes. Urinary bladder: There is diffuse mural thickening of the urinary bladder which is nonspecific. Correlate with urinalysis. Reproductive: Unremarkable as visualized. Bones/joints: Unremarkable. No acute fracture. Soft tissues: There is diffuse increased density of the subcutaneous fat and intra-abdominal and intrapelvic fat consistent with anasarca. CT/CT abdomen pelvis wo con [id number] IMPRESSION: 1. Anasarca. 2. Improving bibasilar pneumonia. 3. Decreased density of the blood in the aorta consistent with anemia. 4. Prominent gastric distention but oral contrast passes to the colon indicating no complete obstruction. 5. Prominent calcification of the aorta and origins of the major vessels. Stenosis cannot be excluded. 6. Mural thickening of the urinary bladder. Correlate with urinalysis to exclude cystitis. Radiation Dose CTDIVOL = (mGy): DLP = 387.83 (mGy-cm)
[2020-06-15 06:58] VITALS: BP 98/57; PULSE 105; RESP 14; O2SAT 100
== END 2020-06-15 06:58 | disposition admitted as inpatient to this hospital (09) ==
PROVIDERS: Emergency Provider Internal Medicine; PCP Family Medicine
DX: Z53.9 Procedure and treatment not carried out, unspecified reason (principal)
CPT/HCPCS: 74176; 96360; 99281; 99283; J7030

== ENCOUNTER → 2020-07-08 10:25 | Outpatient (BNVA) | payer MEDICAID, SELFPAY | PROVIDERS: PCP Family Medicine; Visit Provider Family Medicine | DX: E11.69 Type 2 diabetes mellitus with other specified complication (principal); D64.9 Anemia, unspecified; Z79.4 Long term (current) use of insulin; J44.9 Chronic obstructive pulmonary disease, unspecified; I10 Essential (primary) hypertension; F41.1 Generalized anxiety disorder; D50.0 Iron deficiency anemia secondary to blood loss (chronic); K59.04 Chronic idiopathic constipation; K21.9 Gastro-esophageal reflux disease without esophagitis | CPT/HCPCS: 80053; 83036; 85025 ==